=== PATIENT | female | born 1950 | race Caucasian/White ===

== ENCOUNTER 2022-08-23 08:28 | Emergency (ER) | payer MEDICARE, BC, SELFPAY ==
--- NOTE | ~2022-08-23 | CT_ITS ---
EXAMINATION: CT brain wo con DATE: 08/23/2022 09:22 INDICATION: Head injury. TECHNIQUE: Computed tomography (CT) of the head was performed without intravenous contrast. The dose- length product was 681.00 mGy-cm. Automated exposure control and iterative reconstruction technique w ere employed. COMPARISON: None FINDINGS: There is a chronic right frontal lobe infarction. There is a large chronic left hemispheric infarction with encephalomalacia. There is a little chronic left temporal lobe infarction. There is a left frontal parietal craniotomy defect. No acute infarction, hemorrhage, mass or mass effect. Ther e is compensatory dilation of the left lateral ventricle. Paranasal sinuses and mastoids are pneumati zed. IMPRESSION: 1. No acute intracranial abnormality. 2: Chronic bilateral infarctions described above. Reviewed, dictated and finalized at location []
--- NOTE | ~2022-08-23 | XR_ITS ---
XR femur LT min 2V 08/23/2022 09:40 Indication: Left leg pain after fall Procedure: 2 views left femur Comparison: No prior studies for comparison. Findings: No fracture, subluxation or dislocation. Mild osteoarthritis of the left hip and knee. Oste openia. There are vascular calcifications. No focal soft tissue abnormality. No foreign bodies. Impression: 1: No acute fracture. Reviewed, dictated and finalized at location [] Impression: 1: No acute fracture.
--- NOTE | ~2022-08-23 | XR_ITS ---
XR hip LT 2V w AP pelvis 08/23/2022 09:40 Indication: Left hip pain after fall Procedure: AP pelvis and 2 views left hip Comparison: 08/23/2022 Findings: There is mild osteoarthritis of the hips. No fracture, subluxation or dislocation. No signi ficant soft tissue abnormality. No foreign bodies. Impression: 1: Mild bilateral symmetric osteoarthritis of the hips. Reviewed, dictated and finalized at location [] Impression: 1: Mild bilateral symmetric osteoarthritis of the hips.
[2022-08-23 08:32] VITALS: BP 118/63; PULSE 77; RESP 16; TEMP 36.2; O2SAT 98
[2022-08-23] MEDS: MORPHINE SULFATE (*CRX) 4 MG/ML INJ IV PUSH (09:02)
--- NOTE | 2022-08-23 10:25 | ED.GENADULT ---
HPI - General Adult General Chief complaint: Fall Stated complaint: poss hip fx Time Seen by Provider: 08/23/22 08:40 History of Present Illness HPI narrative: Patient is a 72-year-old female who presents to the ER after rolling out of bed. Daughter heard the patient hit the ground. Went up and checked on patient immediately. No loss of consciousness. 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 Patient has pain to the left lateral thigh and hip area. She also has some left-sided temporal pain. Denies LOC. Has not attempted ambulation. No additional concerns. Has not received any pain medication. Patient is on aspirin. Related Data Allergies Allergy/AdvReac Type Severity Reaction Status Date / Time codeine Allergy Unknown Verified 08/23/22 08:39 Penicillins Allergy Unknown Verified 08/23/22 08:39 Sulfa (Sulfonamide Allergy Unknown Verified 08/23/22 08:39 Antibiotics) Review of Systems Review of Systems: ROS unobtainable: Yes unobtainable due to medical condition (Expressive aphasia) Musculoskeletal: Musculoskeletal: Denies joint swelling PMFSH Past Medical History Medical History (Updated 08/23/22 @ 12:18 by Denzel Flores MD) CVA (cerebral vascular accident) Expressive aphasia Exam Narrative: GENERAL: Well-appearing, well-nourished, and in no acute distress. HEAD: Normocephalic, atraumatic. ENT: Mucous membranes moist. CHEST: Clear to auscultation. No respiratory distress. HEART: Regular rate and rhythm. Normal peripheral pulses. ABDOMEN: Soft, nontender, nondistended. EXTREMITIES: Tender palpation left proximal thigh and hip. Able to have her leg passively moved without pain on the left side. Right upper and lower extremity contracture. SKIN: Warm, dry, no rash. NEURO: Awake and alert, answers yes and no and has an expressive aphasia otherwise. At neurologic baseline currently. PSYCH: Normal mood and affect. Course Course Emergency Course: Patient able to move about the room with her cane in a normal manner. She will be discharged home. Vital Signs Vital signs: Vital Signs Temperature 97.1 F L 08/23/22 08:32 Pulse Rate 77 08/23/22 08:32 Respiratory Rate 16 08/23/22 08:32 Blood Pressure 118/63 08/23/22 08:32 Pulse Oximetry 98 08/23/22 08:32 Oxygen Delivery Room Air 08/23/22 08:32 Temperature 97.1 F L 08/23/22 08:32 Pulse Rate 77 08/23/22 08:32 Respiratory Rate 16 08/23/22 08:32 Blood Pressure 118/63 08/23/22 08:32 Pulse Oximetry 98 08/23/22 08:32 Oxygen Delivery Room Air 08/23/22 08:32 Medical Decision Making Vital Signs Vital Signs: Vital Signs Temperature 97.1 F L 08/23/22 08:32 Pulse Rate 77 08/23/22 08:32 Respiratory Rate 16 08/23/22 08:32 Blood Pressure 118/63 08/23/22 08:32 Pulse Oximetry 98 08/23/22 08:32 Oxygen Delivery Room Air 08/23/22 08:32 Temperature 97.1 F L 08/23/22 08:32 Pulse Rate 77 08/23/22 08:32 Respiratory Rate 16 08/23/22 08:32 Blood Pressure 118/63 08/23/22 08:32 Pulse Oximetry 98 08/23/22 08:32 Oxygen Delivery Room Air 08/23/22 08:32 Imaging Data Radiologist's impression: ITS Impressions Head CT 08/23/22 09:27 IMPRESSION: 1. No acute intracranial abnormality. 2: Chronic bilateral infarctions described above. Hip/Pelvis X-Ray 08/23/22 09:47 Impression: 1: Mild bilateral symmetric osteoarthritis of the hips. Femur X-Ray 08/23/22 09:49 Impression: 1: No acute fracture. Discharge Plan Discharge Clinical Impression: Contusion of left thigh Patient Disposition: Home, Self-Care Condition: Stable Instructions: Contusion in Adults (ED) Additional Instructions: You are felt to have a left thigh contusion due to your fall. You may notice some discoloration of the next couple of days. Return to the ER if you have additional injury, you have chest pain or shortness of breath, you have
[2022-08-23] MEDS: HYDROcodone/acetaminophen (*CRX) 5-325 MG TABLET 1 TAB PO (12:26)
[2022-08-23 12:27] VITALS: BP 117/76; PULSE 96; RESP 18; TEMP 35.9; O2SAT 92
== END 2022-08-23 12:30 | disposition home or self-care (01) ==
PROVIDERS: Emergency Provider Emergency Medicine; PCP Family Medicine
DX: S70.12XA Contusion of left thigh, initial encounter (principal); I69.351 Hemiplegia and hemiparesis following cerebral infarction affecting right dominant side; I69.320 Aphasia following cerebral infarction; M16.0 Bilateral primary osteoarthritis of hip; W06.XXXA Fall from bed, initial encounter
CPT/HCPCS: 70450; 73502; 73552; 96374; 99284; A9270; J2270

== ENCOUNTER 2024-09-28 15:02 | Emergency (ER) | payer MEDICARE, BC, SELFPAY ==
--- NOTE | 2024-09-28 | ECG_ITS ---
Test Date: 2024-09-28 15:21:28 Measurements Intervals [place] Rate: 83 P: 31 LA: 202 QRS: 4 QRSD: 107 T: 32 QT: 365 QTc: 430 Interpretive Statements SINUS RHYTHM LOW QRS VOLTAGE IN PRECORDIAL LEADS [QRS DEFLECTION < 1.0 mV IN CHEST LEADS] No previous ECG available for comparison Electronically Signed On 09-29-2024 12:35:07 CDT by Gonzalez Caruso M.D.
--- NOTE | ~2024-09-28 | CT_ITS ---
EXAMINATION: CT brain wo con DATE: 09/28/2024 17:24 INDICATION: AMS . TECHNIQUE: Computed tomography (CT) of the head was performed without intravenous contrast. The mA wa s adjusted according to patient size. Iterative reconstruction technique was employed. The dose-lengt h product was 681.00 mGy-cm. COMPARISON: None. FINDINGS: No acute intracranial hemorrhage or extra-axial fluid collection. No hydrocephalus, mass, or herniation. Ex vacuo dilation of the left lateral ventricle. No acute ischemic infarct. Unremarkable dural venous sinus attenuation. No acute osseous abnormality. Right craniotomy defect. Trace right mastoid fluid, the remaining aerated spaces are clear. Large area of encephalomalacia in the left cerebral 1hemisphere. More focal encephalomalacia in the r ight frontal lobe. Mild atrophy. Old bilateral basal ganglia lacunar infarcts. Atherosclerotic intrac ranial calcifications. IMPRESSION: No acute intracranial process. Reviewed, dictated and finalized at location K.
--- NOTE | ~2024-09-28 | XR_ITS ---
EXAMINATION: XR chest 2V Exam Date/Time: 09/28/2024 17:20 CDT HISTORY: cough, AMS Comparison: None. RESULT: Lines, tubes, and devices: Cholecystectomy clips. Lungs and pleura: Clear. Granulomatous calcification. Cardiomediastinal silhouette: Unremarkable. Calcified nodes. Other: No acute upper abdominal finding. Moderate anterior wedge deformity in the lower spine, proba gennaro T12 IMPRESSION: No acute cardiopulmonary process. Moderate anterior wedge deformity, likely at T12, presumably chronic unless accompanied by acute pain /tenderness. Reviewed, dictated and finalized at location K. IMPRESSION: No acute cardiopulmonary process. Moderate anterior wedge deformity, likely at T12, presumably chronic unless acc ompanied by acute pain/tenderness.
[2024-09-28 15:08] VITALS: BP 129/64; PULSE 84; RESP 16; TEMP 37.2; O2SAT 94
[2024-09-28 15:32] LABS: Hematocrit 45.4 % (37.0-47.0); Hemoglobin 14.6 g/dL (12.0-15.0); Immature Granulocyte Percent A 0.4 % (0-0.5); Lymphocytes Absolute Auto 2.06 K/mm3 (0.9-3.2); Mean Corpuscular HGB Conc 32.2 g/dl (32-36); Mean Corpuscular Hemoglobin 29.6 pg (26-34); Mean Corpuscular Volume 91.9 fl (80-100); Nucleated Red Blood Cells Absolute Auto 0.000 K/mm3 (0.0-0.012); Nucleated Red Blood Cells Perc 0.0 % (0.0-0.2); Platelet Count Result 275 k/mm3 (150-375); Red Blood Count 4.94 M/mm3 (4.2-5.4); White Blood Count 10.6 K/mm3 (4.5-10.0)
[2024-09-28 15:42] LABS: INR 1.0; Prothrombin Time 12.7 Seconds (11.1-14.7)
[2024-09-28 15:43] LABS: Partial Thromboplastin Time 28.7 Seconds (22.3-36.8)
--- NOTE | 2024-09-28 15:44 | ED.AMS ---
HPI - Altered Mental Status General Chief Complaint: Altered Mental Status Stated Complaint: AMS Time Seen by Provider: 09/28/24 15:39 Source: patient and family Mode of arrival: EMS Limitations: other (history of previous CVA with expressive aphasia) History of Present Illness HPI narrative: This is a 74 year old female that presents to the ER for altered mental status. Daughter reports she has not been herself since yesterday. Reports some agitation. Reports a cough that is chronic. Otherwise no associates symptoms. Related Data Allergies Allergy/AdvReac Type Severity Reaction Status Date / Time codeine Allergy Unknown Verified 08/23/22 08:39 Penicillins Allergy Unknown Verified 08/23/22 08:39 Sulfa (Sulfonamide Allergy Unknown Verified 08/23/22 08:39 Antibiotics) Review of Systems Review of Systems: ROS unobtainable: Yes unobtainable due to medical condition PMFSH Past Medical History Medical History (Updated 09/28/24 @ 18:37 by Josefa Reece PA-C) History of hypothyroidism History of hypertension History of hyperlipidemia CVA (cerebral vascular accident) Expressive aphasia Exam Narrative: GENERAL: Elderly, well-nourished, and in no acute distress. HEAD: Normocephalic, atraumatic. EYES: PERRLA and EOMI. ENT: Nares clear, no rhinorrhea or epistaxis. Mucous membranes moist. Oropharynx without tonsillar hypertrophy exudate or other lesions. Bilateral TMs pearly porras non-bulging NECK: Supple. No adenopathy or masses CHEST: Clear to auscultation. No respiratory distress. No wheezes rales or rhonchi HEART: Regular rate and rhythm. No murmur heard. Normal peripheral pulses. ABDOMEN: Soft, nontender, nondistended, normal active bowel sounds. EXTREMITIES: Right sided hemiplegia. No edema. SKIN: Warm, dry, no rash. NEURO: No focal deficits. Alert and oriented x1. PSYCH: Normal mood and affect Course Course Emergency Course: patient and family updated on workup and agree with plan of care. we spoke about further inpatient treatment versus discharge home with oral antibiotics. patient and family wish to trial outpatient treatment Vital Signs Vital signs: Vital Signs Temperature 98.9 F 09/28/24 15:08 Pulse Rate 84 09/28/24 15:08 Respiratory Rate 16 09/28/24 15:08 Blood Pressure 129/64 09/28/24 15:08 Pulse Oximetry 94 09/28/24 15:08 Oxygen Delivery Room Air 09/28/24 15:08 Temperature 98.9 F 09/28/24 15:08 Pulse Rate 84 09/28/24 15:08 Respiratory Rate 16 09/28/24 15:08 Blood Pressure 129/64 09/28/24 15:08 Pulse Oximetry 94 09/28/24 15:08 Oxygen Delivery Room Air 09/28/24 15:08 MDM - Altered Mental Status MDM Narrative Medical decision making narrative: Patient presents the emergency department for agitation ongoing since yesterday. She is afebrile and nontoxic appearing. Neurologically intact at her baseline. Her vitals are stable. CBC with mild leukocytosis to 10.6. Metabolic panel without concerning findings. Urine with evidence of infection. This was sent for culture. CT brain without acute findings. Chest x-ray without acute cardiopulmonary abnormality. patient and family updated on workup and agree with plan of care. we spoke about further inpatient treatment versus discharge home with oral antibiotics. patient and family wish to trial outpatient treatment. They report warnings to return to the ER Differential Diagnosis Differential diagnosis: Likely altered mental status, delirium, dementia, sepsis and other (uti, pneumonia) Lab Data Attestation: I reviewed the patient's lab results. 09/28/24 15:26 09/28/24 15:26 Labs: Lab Results 09/28/24 09/28/24 Range/Units 15:26 16:10 WBC 10.6 H (4.5-10.0) K/mm3 RBC 4.94 (4.2-5.4) M/mm3 Hgb 14.6 (12.0-15.0) g/dL Hct 45.4 (37.0-47.0) % MCV 91.9 (80-100) fl MCH 29.6 (26-34) pg MCHC 32.2 (32-36) g/dl RDW 14.9 H (11.5-14.5) % Plt Count 275 (150-375) k/mm3 MPV 10.4 (7.4-10.4) fl Immature Gran % (Auto) 0.4 (0-0.5) % Neut % (Auto) 68.3 (45.5-73.1) % Lymph % (Auto) 19.5 (18.3-44.2) % Centre % (Auto) 6.6 (2.6-8.5) % Eos % (Auto) 4.3 (0-4.4) % Baso % (Auto) 0.9 (0.2-1.2) % Lymph # (Auto) 2.06 (0.9-3.2) K/mm3 Centre # (Auto) 0.7 H (0.1-0.6) K/mm3 Eos # (Auto) 0.5 H (0-0.3) K/mm3 Baso # (Auto) 0.1 (0.0-0.1) K/mm3 Abs Immat Gran (auto) 0.04 H (0.00-0.031) K/mm3 Absolute Neuts (auto) 7.2 H (1.3-6.7) K/mm3 Absolute Nucleated RBC 0.000 (0.0-0.012) K/mm3 Nucleated RBC % 0.0 (0.0-0.2) % PT 12.7 (11.1-14.7) Seconds INR 1.0 APTT 28.7 (22.3-36.8) Seconds Sodium 136 L (137-145) mmol/L Potassium 4.0 (3.4-5.0) mmol/L Chloride 101 (98-107) mmol/L Carbon Dioxide 27 (22-30) mmol/L Anion Gap 8 (4-12) mmol/L BUN 26 H (7-17) mg/dL Creatinine 1.02 H (0.7-1.0) mg/dL Estim Creat Clear Calc 50 ml/min Estimated GFR 53 L (59 - ) Glucose 131 H (65-110) mg/dL Calcium 9.1 (8.4-10.2) mg/dL Total Bilirubin 0.5 (0.2-1.3) mg/dL AST 38 H (14-36) U/L ALT 30 (6-35) U/L Alkaline Phosphatase 97 (38-126) U/L Total Protein 7.9 (6.3-8.2) g/dL Albumin 3.9 (3.5-5.1) g/dL Urine Color Yellow (Yellow) Urine Appearance Clear (Clear) Urine pH 7.5 (5.0-9.0) Ur Specific [place] 1.016 (1.001-1.035) Urine Protein Negative (Negative) mg/dL Urine Glucose (UA) Negative (Negative) mg/dL Urine Ketones Negative (Negative) mg/dL Ur Blood (Man) Negative (Negative) Urine Nitrate Positive H (Negative) Urine Bilirubin Negative (Negative) Urine Urobilinogen 0.2 (<2.0) mg/dL Leukocyte Esterase Rfl 3+ H (Negative) JUAN ANTONIO/UL Urine RBC 0-2 (0-2) /hpf Urine WBC 51-100 H (0-3) /hpf Ur Squamous Epith Cells None seen (Few) /hpf Urine Bacteria 4+ H /hpf Urine Casts 0-2 Imaging Data Radiologist's impression: ITS Impressions Head CT 09/28/24 17:53 IMPRESSION: No acute intracranial process. Chest X-Ray 09/28/24 18:03 IMPRESSION: No acute cardiopulmonary process. Moderate anterior wedge deformity, likely at T12, presumably chronic unless accompanied by acute pain/tenderness. Critical Care Time Critical Care Time Critical Care Time: No Discharge Plan Discharge Clinical Impression: Acute UTI Patient Disposition: Home Condition: Stable Instructions: Antibiotic Form, Urinary Tract Infection in Older Adults (ED) Additional Instructions: Return to the ER if you experience fever, abdominal pain with nausea and vomiting, you are unable to keep down liquids or solids, or any other symptoms that are concerning to you Remain well hydrated. Take oral antibiotics as prescribed Follow up with primary care doctor Patient Language: [place] Prescriptions: New cefdinir 300 mg capsule 300 mg PO Q12H 5 Days Qty: 10 0RF No Action hydrocodone-acetaminophen 5-325 mg tablet 1 tablet PO Q6H PRN (Reason: pain) Qty: 10 0RF Follow-up/Referrals: Harms,Myron Sharma M.D. [Primary Care Provider] -
[2024-09-28 15:52] LABS: Alanine Aminotransferase 30 U/L (6-35); Albumin Level 3.9 g/dL (3.5-5.1); Alkaline Phosphatase 97 U/L (38-126); Anion Gap 8 mmol/L (4-12); Aspartate Amino Transferase 38 U/L (14-36); Bilirubin,Total 0.5 mg/dL (0.2-1.3); Blood Urea Nitrogen 26 mg/dL (7-17); Calcium 9.1 mg/dL (8.4-10.2); Carbon Dioxide 27 mmol/L (22-30); Chloride 101 mmol/L (98-107); Estimated CRCL calculation 50 ml/min; Estimated Glomerular Filt Rate 53; Glucose 131 mg/dL (65-110); Potassium 4.0 mmol/L (3.4-5.0); Sodium 136 mmol/L (137-145); Total Protein 7.9 g/dL (6.3-8.2)
--- OUTSIDE RECORDS SUMMARY | 2024-09-28 15:55 | XMS_ITS | Referral Summary ---
Author Organization [facility] Address [address] [place] [address] Care Team Providers Care Youth Officer Name Role Phone Myron Gardner MD Primary Care Provider [phone] Myron Gardner MD Unavailable [phone] Anna Burns PT Unavailable Unavailable Mario Llanos MD Unavailable [phone] Caren Ann MA Unavailable Unavailable Mariusz Mcfarland MD Unavailable [phone] Encounters Date Type Department Care Team Description 08/04/2024 Telephone [facility] [address] [address] Felicia Montalvo NP Medical Question/Miscellaneous 07/31/2024 8:00 AM CDT [facility]med[facility] [address] [address] Felicia Montalvo NP 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 (Primary Dx); Pressure ulcer of toe of left foot, stage 1; Hemiplegia of right dominant side as late effect of cerebral infarction, unspecified hemiplegia type (HCC); Class 2 severe obesity due to excess calories with serious comorbidity and body mass index (BMI) of 38.0 to 38.9 in adult (HCC) from Last 3 Months Allergies Active Allergy Reactions Criticality Noted Date Comments Codeine Nitrofurantoin Fever Medium 09/27/2021 Penicillin G Anaphylaxis High Penicillins Penicillins Unknown 01/28/2020 Sulfa (Sulfonamide Antibiotics) Sulfa (Sulfonamide Antibiotics) Unknown 01/04 Medications multivitamin capsule Take 1 capsule by mouth daily Active ascorbic acid (vitamin C) 1,000 mg tablet Take 1 tablet (1,000 mg total) by mouth 2 (two) times a day Active diphenhydrAMIN E (BENADRYL) 25 mg capsule Take 2 tablet/capsule (50 mg total) by mouth nightly Active aspirin 81 mg enteric coated tablet Take 1 tablet (81 mg total) by mouth daily 30 tablet 11 08/01/19 23 Active pregabalin (LYRICA) 25 mg capsuleIndicat ions:Hemiplegi a of right dominant side as late effect of cerebral infarction, unspecified hemiplegia type (HCC) TAKE 1 CAPSULE BY MOUTH IN THE MORNING AND TAKE 2 CAPSULES BY MOUTH EVERY EVENING. 90 capsule 11/02/19 24 Active atorvastatin (LIPITOR) 40 mg tabletIndicati ons:Hemiplegia of right dominant side as late effect of cerebral infarction, unspecified hemiplegia type (HCC) TAKE 1 TABLET DAILY 90 tablet 3 02/13/20 24 Active albuterol HFA (PROVENTIL HFA,VENTOLIN HFA,PROAIR HFA) 90 mcg/actuation inhaler INHALE 2 PUFFS EVERY 6 HOURS NEEDED FOR WHEEZING 25.5 each 4 03/18/19 25 Active tiZANidine (ZANAFLEX) 2 mg tablet TAKE TWO TABLETS BY MOUTH NIGHTLY 180 tablet 1 04/14/19 25 Active acetaminophen (Tylenol Extra Strength) 500 mg tabletIndicati ons:Pain Take 1 tablet (500 mg total) by mouth every 6 (six) hours as needed for pain 30 tablet 04/24/19 25 Active bacitracin 500 unit/gram ointmentIndica tions:Pressure ulcer of toe of left foot, stage 1 Apply topically 2 (two) times a day 113 g 04/24/19 25 Active levETIRAcetam (KEPPRA) 500 mg tablet Take 1 tablet (500 mg total) by mouth 2 (two) times a day 60 tablet 11 05/22/[address] (CYMBALTA) 20 mg capsule TAKE 1 CAPSULE BY MOUTH TWICE A DAY 180 capsule 1 06/20/19 25 Active triamterene-hy droCHLOROthiaz beba 37.5-25 mg per tablet TAKE 1 TABLET BY MOUTH EVERY DAY 90 tablet 2 06/28/19 25 Active albuterol 2.5 mg /3 mL (0.083 %) nebulizer solution TAKE 3 ML BY NEBULIZATION 4 TIMES A DAY NEEDED FOR WHEEZE OR SHORTNESS OF BREATH DX: R06.02 1050 mL 1 07/16/19 25 Active metoprolol tartrate (LOPRESSOR) 25 mg immediate release tablet TAKE 1 TABLET BY MOUTH TWICE A DAY 200 tablet 1 09/01/19 25 Active ezetimibe (ZETIA) 10 mg tablet TAKE 1 TABLET DAILY 90 tablet 1 09/02/19 25 Active Synthroid 200 mcg tablet TAKE 1 TABLET DAILY (INCREASED DOSE) 90 tablet 1 09/02/19 25 Active pregabalin (LYRICA) 25 mg capsuleIndicat ions:Hemiplegi a of right dominant side as late effect of cerebral infarction, unspecified hemiplegia type (HCC) TAKE 1 CAPSULE BY MOUTH IN THE MORNING AND TAKE 2 CAPSULES BY MOUTH EVERY EVENING. 90 capsule 09/11/19 25 Active metoprolol tartrate (LOPRESSOR) 25 mg immediate release tablet TAKE 1 TABLET BY MOUTH TWICE A DAY 180 tablet 1 02/29/20 24 2024 Discontinued Synthroid 200 mcg tablet TAKE 1 TABLET DAILY (INCREASED DOSE) 90 tablet 1 04/10/19 25 2024 Discontinued ezetimibe (ZETIA) 10 mg tablet TAKE 1 TABLET DAILY 100 tablet 06/22/19 25 2024 Discontinued pregabalin (LYRICA) 25 mg capsuleIndicat ions:Hemiplegi a of right dominant side as late effect of cerebral infarction, unspecified hemiplegia type (HCC) TAKE 1 CAPSULE BY MOUTH IN THE MORNING AND TAKE 2 CAPSULES BY MOUTH EVERY EVENING. 90 capsule 08/12/19 25 2024 Discontinued(R eorder) Active Problems Problem Noted Date Diagnosed Date Pressure ulcer of toe of left foot, stage 1 04/06 Assessment & Plan (07/31/2024 8:36 AM CDT): Healed. Continue monitoring for any new wounds. Continue position changes. Assessment & Plan (04/24/2024 2:43 PM NO BAKE MOLDER): Bacitracin ordered. Advised to put gauze between toes to aid in keeping pressure off the toe. Referral placed to Podiatry. Will continue to monitor. Annual physical exam 01/17/2024 Assessment & Plan (01/17/2024 9:53 AM NO BAKE MOLDER): Focus of exam is preventative in nature. Reivweed immunizaitons, reivewed sun/skin cnacer screenign. Reiweed colon/breast cacner screening. WIll continue to ofllwo and montior response. Encounter for screening mamm ogram for malignant neoplasm of breast 01/17/2024 Bronchitis 01/17/2024 Postmenopausal 10/18/2023 Assessment & Plan (10/18/2023 3:15 PM CDT): Bone density scan ordered. Will plan accordingly once results are received. High serum vitamin D 10/18/2023 Assessment & Plan (10/18/2023 3:17 PM CDT): Back to normal range. Will continue to hold vitamin-D supplements for now. Will recheck vitamin-D level upon return. Positive colorectal cancer screening using Colog uard test 08/07/2023 Encounter for screening colonoscopy 08/07/2023 Hypertension, essential 07/18/2023 Assessment & Plan (10/18/2023 3:06 PM CDT): Normotensive. Continue metoprolol, triamterene/hydrochlorothiazide. Will continue to monitor. Assessment & Plan (07/18/2023 1:48 PM CDT): Normotensive. Continue metoprolol, triamterene hydrochlorothiazide. Will continue to monitor. Hypercalcemia 07/18/2023 Assessment & Plan (07/18/2023 1:49 PM CDT): Hold calcium supplement for now. Will check ionized calcium. Will monitor response. Can consider holding hydrochlorothiazide p.r.n.. Colon cancer screening 07/18/2023 Assessment & Plan (07/18/2023 1:49 PM CDT): Cologuard ordered. Will message with results once received. Mammogram declined 07/18/2023 Assessment & Plan (07/18/2023 1:50 PM CDT): Mammogram declined. She is aware of the risks. Hematoma of left thigh 11/23/2022 Assessment & Plan (01/17/2023 2:28 PM NO BAKE MOLDER): Gradually improving; caregiver states surgeon did not want to surgically correct due to risks Assessment & Plan (11/23/2022 4:40 PM CDT): No improvement with conservative treatment measures at home. Patient continues to have pain, recommended further evaluation with General surgery to discuss options. Instructed patient to take NSAIDs scheduled for the next 1 week, encouraged her to take medication with food. Recurrent major depression 06/26/2022 Assessment & Plan (01/17/2024 9:52 AM NO BAKE MOLDER): COntinues on duloxetine and will montior resopnse. NO change. COVID-19 03/02/2022 Assessment & Plan (03/02/2022 12:35 PM NO BAKE MOLDER): Discussed concerns for pneumonia and need for additional testing; chest xray labs and fluids. Patient with probably pneumonia and dehydration. Instructed to go to ER. Patient and meuxucc-dx-hso/care-women's swim coach are agreeable to go to ER from office. Notified [facility] ER, report called to [facility]. Lung nodule < 6cm on CT 10/19/2020 Pneumonia 08/22/2020 Assessment & Plan (08/22/2020 9:59 PM CDT): Suspected versus bronchitis. Patient feeling better at this time. She is no longer wheezing. Will check a urine Legionella. Continue empiric antibiotics. Will start IV fluids and order Mucinex. 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 LFTs are elevated worsening usual. Hold hepatotoxins including anti hyperlipidemic and Tylenol. Will continue to monitor. Screening for colon cancer 06/20/2020 Assessment & Plan (06/20/2020 11:38 AM CDT): Schedule Cologuard test. Elevated alpha fetoprotein 06/20/2020 Assessment & Plan (03/26/2021 11:52 AM NO BAKE MOLDER): Schedule [address] liver. Repeat level today. Assessment & Plan (09/14/2020 12:47 PM CDT): Mild elevation at 10. Most recent imaging ultrasound of the liver in June 2020 showed hepatic steatosis with no focal lesion. Will plan repeat testing in 6 months. Assessment & Plan (06/20/2020 11:44 AM CDT): Will follow level every three months. No liver mass lesions noted. 2019 novel coronavirus disease (COVID-19) 2019 CVA, old, aphasia 01/28/2020 Assessment & Plan (04/24/2024 2:41 PM NO BAKE MOLDER): Motorized wheelchair order placed Assessment & Plan (08/22/2020 10:00 PM CDT): Patient has expressive aphasia and residual right-sided weakness. She cannot move her right arm at all however can move her right leg a little. Severe obesity (BMI 35.0-39.9) with comorbidity 05/14/2019 Assessment & Plan (04/24/2024 2:43 PM NO BAKE MOLDER): Encouraged heart healthy diet and lifestyle. Advised 150 min/week of aerobic exercise. Hemiplegia affecting right dominant side 020 Assessment & Plan (07/31/2024 8:35 AM CDT): Motorized wheelchair ordered. Assessment & Plan (04/24/2024 2:41 PM NO BAKE MOLDER): Motorized wheelchair order placed Assessment & Plan (01/17/2024 9:51 AM NO BAKE MOLDER): Continues to be wheelchair bound with right hemiplegia. No skin lesions. No challenges with transfers. Assessment & Plan (01/17/2023 2:29 PM NO BAKE MOLDER): S/P CVA Transient alteration of awareness 12/02/2018 H/O: depression 10/15/2017 Assessment & Plan (01/17/2023 2:26 PM NO BAKE MOLDER): Stable, currently well controlled Continue cymbalta 20 mg bid H/O: hypertension 10/15/2017 Assessment & Plan (01/17/2023 2:28 PM NO BAKE MOLDER): BP well controlled; at goal 108/72 at visit Continue metoprolol 25 mg and triamterene-HCTZ 37.5-25 mg History of hypercholesterolemia 10/15/2017 Obesity (BMI 30-39.9) 08/08/2017 Assessment & Plan (08/08/2017 3:44 PM CDT): Obesity is improving Discussed the patient's BMI. The BMI is above average; BMI management plan is completed. Diet interventions: low calorie (1000 kCal/d) deficit diet. Diet= low-carb Limit white bread, rice, pasta, potatoes, juice, energy drinks, coffee creamers with sugar, sugar sodas, candy, cake, cookies, ice cream. Be more careful with starchy vegetables like corn, carrots, and fruits. Stay away from processed foods, fast foods, fried foods. The cornerstone of this diet is lean grilled meats, green salads or cooked greens, fat-free milk, cottage cheese, nuts like cnderwn-vztqzaf-lzltjba, protein bars with 10-15 g of protein and 20-30 g of carbohydrate. Choose whole grain breads and pastas, brown rice, sweet potatoes, read onions--these whole grains absorb more slowly thus blood sugar does not surge so high so quickly. Avoid drinking juice, eat a piece of fruit instead. Pt has lost 40 pounds with diet-Keep up the good work Foot pain 08/10/2015 Assessment & Plan (04/24/2024 2:41 PM NO BAKE MOLDER): Tylenol extra strength ordered. Advised BID warm water and Epson salt soaks advised to aid in relief of pain and inflammation. Hyperlipidemia 07/19/2013 Overview (06/09/2016): HYPERLIPIDEMIA NEC/NOS Assessment & Plan (01/17/2024 9:50 AM NO BAKE MOLDER): Stable on dual therapy with atorvastatin and zetia. No sig myalgias related to medication. Assessment & Plan (10/18/2023 3:07 PM CDT): Continue atorvastatin. Will check lipid panel with next set of labs. Assessment & Plan (07/18/2023 1:47 PM CDT): Lipid panel reviewed. Will continue with atorvastatin. Tolerating without side effects. Will continue to monitor. Assessment & Plan (01/17/2023 2:29 PM NO BAKE MOLDER): Currently stable; lipids at goal Continue atorvastatin 40 mg daily Assessment & Plan (08/22/2020 9:57 PM CDT): Patient is on Lipitor and zetia which will be held as patient has elevated LFTs worse than baseline. Assessment & Plan (12/02/2018 10:39 PM CDT): On zetia, currently NPO, holding the oral medications Assessment & Plan (08/08/2017 3:47 PM CDT): Lipid abnormalities are unchanged. Pharmacotherapy as ordered. Lipids will be reassessed in 1 year. Continue Pravastatin, Zetia Hypertension 07/19/2013 Overview (06/09/2016): HYPERTENSION NOS Assessment & Plan (01/17/2024 9:51 AM NO BAKE MOLDER): Stable on triamterene/hctz and will continue to oflwo response. Assessment & Plan (08/22/2020 9:56 PM CDT): Patient's blood pressure is low normal. Will continue metoprolol with hold parameters. Holding hydrochlorothiazide as we give IV fluids. Assessment & Plan (12/02/2018 10:41 PM CDT): Slightly elevated Holding oral hypoglycemics Will start on IV 5 Mg BID , adjust the Dose as needed while NPO Will resume home medications pernding swallow study and recommendations Assessment & Plan (08/08/2017 3:46 PM CDT): Hypertension is improving with treatment. Continue current treatment regimen. Continue Losartan, HCTZ Blood pressure will be reassessed at the next regular appointment.Lifestyle changes can help you control and prevent high blood pressure, even if you're taking blood pressure medication. Here's what you can do: Eat healthy foods. Eat a healthy diet. Try the Dietary Approaches to Stop Hypertension (DASH) diet, which emphasizes fruits, vegetables, whole grains, poultry, fish and low-fat dairy foods. Get plenty of potassium, which can help prevent and control high blood pressure. Eat less saturated fat and trans fat. Decrease the salt in your diet. A lower sodium level -- 1,500 milligrams (mg) a day -- is appropriate for people 51 years of age or older, and individuals of any age who are black or who have hypertension, diabetes or chronic kidney disease. Maintain a healthy weight. Keeping a healthy weight, or losing weight if you're overweight or obese, can help you control your high blood pressure and lower your risk of related health problems. If you're overweight, losing even 5 pounds (2.3 kilograms) can lower your blood pressure. Increase physical activity. Regular physical activity can help lower your blood pressure, manage stress, reduce your risk of several health problems and keep your weight under control. Limit alcohol. Even if you're healthy, alcohol can raise your blood pressure. If you choose to drink alcohol, do so in moderation. For healthy adults, that means up to one drink a day for women of all ages and men older than age 65, and up to two drinks a day for men age 65 and younger. One drink equals 12 ounces of beer, 5 ounces of wine or 1.5 ounces of 80-proof liquor. Don't smoke. Tobacco injures blood vessel crowell and speeds up the process of hardening of the arteries. If you smoke, ask your doctor to help you quit. Manage stress. Reduce stress as much as possible. Practice healthy coping techniques, such as muscle relaxation, deep breathing or meditation. Getting regular physical activity and plenty of sleep can help, too. Notify the office for blood pressure greater than 130/80 Aphasia due to late effects of cerebrovascular d isease 06/11/2012 Assessment & Plan (07/31/2024 8:34 AM CDT): Stable. Declines PT OT. She will let us know if she changes her mind. Assessment & Plan (04/24/2024 2:41 PM NO BAKE MOLDER): Order for new motorized wheelchair placed along with OT evaluation. Assessment & Plan (01/17/2024 9:50 AM NO BAKE MOLDER): No swallowing difficutlies and will montiro resopnse. No aspiration Assessment & Plan (01/17/2023 2:25 PM NO BAKE MOLDER): Aphasia s/p CVA Patient was able to talk clearly at vist; seems to be improving Assessment & Plan (12/02/2018 10:56 PM CDT): Differential diagnosis: TIA versus seizure like activity Will start on Ativan 1 mg p.r.n. For recurrent seizures. Give loading dose of Keppra 1000 mg IV once now. Will continue with 500 mg IV b.i.d. While NPO. Neurology consulted. Patient is transferred currently to the ICU floor with salvage inspector wood parts consult. Will continue monitoring closely. Seizure precautions, fall precautions, Will obtain neurology consult. EEG in a.m. Stenosis of carotid artery 04/29/2012 Assessment & Plan (12/02/2018 10:43 PM CDT): Will defer to neurology further workup Hypothyroidism 03/23/2010 Overview (06/09/2016): HYPOTHYROIDISM NOS Assessment & Plan (01/17/2024 9:51 AM NO BAKE MOLDER): Clinically euthryoid. [id number] to follow TFTs. Assessment & Plan (07/18/2023 1:47 PM CDT): Will check TSH and plan accordingly. Continue with current dose of levothyroxine. Assessment & Plan (08/22/2020 9:56 PM CDT): Continue levothyroxine Assessment & Plan (12/02/2018 10:42 PM CDT): Will replace with IV levothyrozine 75 MCG daily Assessment & Plan (08/08/2017 3:46 PM CDT): Continue Levothyroxine 150 mcg Seizure Assessment & Plan (01/17/2024 9:50 AM NO BAKE MOLDER): Continues on ikeppra and will follow response. No change. No recurrent seizure activity. Assessment & Plan (08/22/2020 10:01 PM CDT): Continue Keppra Cirrhosis of liver without ascites Assessment & Plan (01/17/2024 9:52 AM NO BAKE MOLDER): No change in constitutional statsu and will follow response. Assessment & Plan (03/26/2021 11:51 AM NO BAKE MOLDER): Cirrhosis secondary to fatty liver. Liver function well compensated. Follow up 6 months. Check labs before next visit. Assessment & Plan (09/14/2020 12:44 PM CDT): Secondary to nonalcoholic steatohepatitis. Liver function is stay in the normal. No decompensation signs. We will follow up in 6 months and plan repeat alpha- fetoprotein level then. Assessment & Plan (08/22/2020 10:00 PM CDT): With elevated LFTs. Holding will hepatotoxins. Patient follows with Dr. Mcfarland as an outpatient. Assessment & Plan (06/20/2020 11:37 AM CDT): Secondary to BRUCE. Stable overall. Discussed low salt diet. Check labs today. she may use low dose Tylenol every now and then. Ok to use Lipitor to control her lipids. Schedule liver ultrasound. Follow up in 3 months. Resolved Problems Problem Noted Date Diagnosed Date Resolved Date Contusion of left thigh 12/05/202201/03 Acute respiratory failure wi th hypoxia (CMS/HCC) 08/22/2020 12/22/2020 Assessment & Plan (08/22/2020 10:08 PM CDT): Secondary to pneumonia versus bronchitis. Patient is not on home oxygen. She had reported SpO2 of 60% on room air. Continue supplemental oxygen and wean as tolerated. Lower suspicion for acute PE given other areas with mucous plugging. Will consider repeat CTA if patient's symptoms do not improve with current treatment and after IV hydration to decrease risk of renal injury. Immunizations Immunization Administration Dates Next Due Influenza, Quadrivalent, Hig h Dose, Preservative Free, Intrr 11/23/2022,12/12/2021 Influenza, Quadrivalent, Spl it, Preservative Free, Intramuscular 12/09/2018 Influenza, Trivalent, Recomb inant, Egg Free, Preservative Free, Antibiotic Free, IM (FLUBLOK) 12/29/2014 Influenza, Unspecified 04/24/2024(Deferr ed: Patient Refused),11/04/2023(Deferred: Patient Refused),12/22/2020(Deferred: Patient Refused),12/03/2020(Deferred: Patient Refused),02/10/2020(Deferred: Patient Refused),12/04/2019(Deferred: Patient Refused),11/04/2019(Deferred: Patient Refused),12/03/2017(Deferred: Patient Refused),03/19/2017(Deferred: Patient Refused) Pfizer SARS-CoV-2 Monovalent Vaccination (12+ Yrs) PURPLE 05/02/2021 Pneumococcal Conjugate PCV 13 12/09/2018 Pneumococcal Conjugate Pcv20 12/12/2021 Pneumococcal Conjugate, Unspecified 02/10/2020(D eferred: Patient Refused) Pneumococcal Polysaccharide PPV23 09/08/2020(Def erred: Patient Refused) Td, adsorbed 01/19/2010 Social History Tobacco Use Types Packs/Day Years Used Date Smoking Tobacco: Never Smokeless Tobacco: Never Tobacco Cessation:Counseling Given: Not Answered Alcohol Use Standard Drinks/Week Comments No 0 (1 standard drink = 0.6 oz pur e alcohol) AUDIT-C Answer Date Recorded Q1: How often do you have a drink containing alcohol? Never 08/30/2023 Q2: How many drinks containi ng alcohol do you have on a typical day when you are drinking? Patient does not drink Q3: How often do you have si x or more drinks on one occasion? Never 08/30/2023 PHQ-2 Answer Date Recorded PHQ-2 Total Score (If total score is 3 or more points, staff should administer the PHQ-9) 0 04/24/2024 Personal Safety Answer Date Recorded Have you ever been in or are you currently in a harmful physical or emotional relationship or is someone making you feel afraid or unsafe? Denies 08/30/2023 Comments No Sex and Gender Information Value Date Recorded Sex Assigned at Not on file Legal Sex Female 9:19 AM NO BAKE MOLDER Gender Identity Not on file Sexual Orientation Not on file Last Filed Vital Signs Vital Sign Reading Time Taken Comments Blood Pressure 108/73 05/21/2024 2:20 PM CDT Pulse 92 05/21/2024 2:20 PM CDT Temperature 37 C (98.6 F) 01/16/2024 3:17 PM NO BAKE MOLDER Respiratory Rate 18 04/24/2024 1:56 PM NO BAKE MOLDER Oxygen Saturation 78% 05/21/2024 2:20 PM CDT Inhaled Oxygen Concentration - - Weight 104.3 kg (230 lb) 07/31/2024 7:57 AM CDT Height 165.1 cm (5' 5) 07/31/2024 7:57 AM CDT Body Mass Index 38.27 07/31/2024 7:57 AM CDT Plan of Treatment Not on file Procedures Procedure Name Priority Date/Time Associated Diagnosis Comments COLONOSCOPY 08/30/2023 12:53 PM CDT DEXA AXIAL SKELETON BONE DENSITY 1 OR MORE SITES Schedule Routine, Read Routine (OP Routine) 09/13/2020 1:02 PM CDT Encounter for osteoporosis screening in asymptomatic postmenopausal patient HEPATITIS C ANTIBODY Routine 06/03/2020 2:42 PM CDT from Last 3 Months or Most Recently Relevant to Health Maintenance Results * Colonoscopy (08/30/2023 12:53 PM CDT) Anatomical Region Laterality Modality Other Narrative Procedure Note Mariusz Mcfarland MD - 08/30/2023 12:53 PM CDT [facility] Patient Name: Bree Vega Procedure Date: 08/30/2023 12:53 PM Date of : 1950 Admit Type: Outpatient Age: 73 Gender: Female Attending MD: Mariusz Mcfarland M.D. Room: [facility] ENDOSCOPY ROOM 1 Note Status: Finalized Patient Profile: This is a 73 year old female. No family history of colon cancer. Noted recent positive Cologuardtest Procedure: Colonoscopy Indications: Screening for colorectal malignant neoplasm, Last colonoscopy: 2012 Referring MD: Myron Gardner M.D. Providers: Mariusz Mcfarland M.D. Impression: - One 16 mm polyp in the cecum, removed piecemeal using a cold snare. Resected and retrieved. Clips(MR conditional) were placed. Clip consumer affairs specialist: [employer]. - Two 3 to 5 mm polyps in the proximal descending colon, removed with a jumbo cold forceps. Resectedand retrieved. - Three 2 to 3 mm polyps in the sigmoid colon,removed with a jumbo cold forceps. Resected andretrieved. - Diverticulosis in the sigmoid colon and in the ascending colon. - Internal hemorrhoids. Recommendation: - Await pathology results. - Repeat colonoscopy in 3 years for surveillance. - Continue present medications. Medicines: Monitored Anesthesia Care Complications: No immediate complications. Estimated Blood Loss: Estimated blood loss: none. Procedure: Pre-Anesthesia Assessment: - Prior to the procedure, a History and Physicalwas performed, and patient medications and allergieswere reviewed. The patient's tolerance of previous anesthesia was also reviewed. The risks andbenefits of the procedure and the sedation options and risks were discussed with the patient. All questions were answered, and informed consent was obtained. Prior Anticoagulants: The patient has taken noanticoagulant or antiplatelet agents. ASA Grade Assessment: III -A patient with severe systemic disease. Afterreviewing the risks and benefits, the patient was deemed in satisfactory condition to undergo the procedure. The benefits, risks and alternatives of theprocedure and sedation were discussed and informed consentwas obtained. All questions were answered. Please referto the signed informed consent document in the medical record. The bowel preparation used was Miralax via split dose instruction. The bowel preparation usedwas bisacodyl tablets via split dose instruction. The scope was passed under direct vision. The Pediatric Colonoscope PCF-H190L [id number] was introducedthrough the anus and advanced to the the cecum, identifiedby appendiceal orifice and ileocecal valve. Thequality of the bowel preparation was good. Bowel prep was administered using a split dose. Findings: Small external hemorrhoids were found on perianal exam. The appendiceal orifice appeared normal. A 16 mm polyp was found in the cecum. The polyp was semi-sessile. The polyp was removed with a piecemeal technique using a cold snare. Resection and retrieval were complete. To prevent bleeding after the polypectomy, two hemostatic clips were successfully placed (MR conditional). Clip consumer affairs specialist: [employer]. There was no bleeding during the procedure. The transverse colon and ascending colon appeared normal. Two sessile polyps were found in the proximal descending colon. The polyps were 3 to 5 mm in size. These polyps were removed with a jumbo cold forceps. Resection and retrieval were complete. Three sessile polyps were found in the sigmoid colon. The polyps were2 to 3 mm in size. These polyps were removed with a jumbo cold forceps. Resection and retrieval were complete. A few small-mouthed diverticula were found in the sigmoid colon and ascending colon. Internal hemorrhoids were found during retroflexion. The hemorrhoids were small. Electronically signed by Mariusz Mcfarland M.D. Mariusz Mcfarland M.D. 08/30/2023 3:32:06 PM Number of Addenda: 0 Note Initiated On: 08/30/2023 12:53 PM Procedure Code(s): --- Professional --- 94016, Colonoscopy, flexible; with removal of tumor(s), polyp(s), or other lesion(s) by snare technique 46114, 59, Colonoscopy, flexible; with biopsy, single or multiple Diagnosis Code(s): --- Professional --- Z12.11, Encounter for screening for malignant neoplasm of colon K64.8, Other hemorrhoids D12.0, Benign neoplasm of cecum D12.4, Benign neoplasm of descending colon D12.5, Benign neoplasm of sigmoid colon K57.30, Diverticulosis of large intestine without perforation orabscess without bleeding CPT copyright 2020 [employer]. All rights reserved. The codes documented in this report are preliminary and upon brim blocker reviewmay be revised to meet current compliance requirements. Recognized by the [place] [employer] for promoting quality in endoscopy Mariusz Mcfarland MD ENDOSCOPY PROCEDURES Final Result * Dexa Axial Skeleton Bone Density 1 or 2 Site (09/13/2020 1:02 PM CDT) Anatomical Region Laterality Modality Body N/A Other 09/13/2020 3:36 PM CDT Narrative 09/13/2020 3:38 PM CDT EXAM DESCRIPTION: DEXA AXIAL SKELETON BONE DENSITY 1 OR MORE SITES REASON FOR STUDY: Post-menopausal female, screening for osteoporosis. Graphic Manager/Model: Higgle (S/N [id number]) CLINICAL INFORMATION: Current height: 65 inches Maximum height: 65 inches Weight: 217 pounds Risk factors: None COMPARISON: None available. FINDINGS: AP LUMBAR SPINE L1-L4: Total BMD is 1.062 g/cm2 T-score is 0.1 LEFT HIP: Total BMD is 1.162 g/cm2 T-score is 1.8 Femoral neck BMD is 0.782 g/cm2 T-score is -0.6 IMPRESSION: Normal bone mineral density by WHO criteria. REFERENCE: Bone mineral density: Normal (T-score above or = -1.0) Low bone mass (T-score between -1.0 and -2.5) replaces the previously used term osteopenia Osteoporosis (T-score = or below -2.5) Medical evaluation for secondary causes of low bone mineral density may be appropriate. FRAX is a World Health Organization validated fracture risk assessment tool that calculates a person's 10 year probability of a major osteoporosis related fracture and hip fracture. According to the National Osteoporosis Foundation guidelines, postmenopausal women and men age 50 or older with low bone mass and a 10 year probability of a major osteoporosis related fracture = or greater than 20% or a 10 year probability of a hip fracture = or greater than 3% should be considered for treatment. For further information, including treatment recommendations, please refer to the 2013 ISCD Official Positions (http://www.iscd.org) and the NOF's Clinician's Guide to Prevention and Treatment of Osteoporosis (http://www.nof.org/professionals/clinical-guidelines) THIS IS AN ELECTRONICALLY VERIFIED FINAL REPORT 09/13/2020 3:38 PM - Electronically signed by Denzel Dodson M.D. AB: Report ID: [id number] Reading Location: [id number] Procedure Note Denzel Dodson MD - 09/13/2020 EXAM DESCRIPTION: DEXA AXIAL SKELETON BONE DENSITY 1 OR MORE SITES REASON FOR STUDY: Post-menopausal female, screening for osteoporosis. Graphic Manager/Model: SportsManias SL (S/N [id number]) CLINICAL INFORMATION: Current height: 65 inches Maximum height: 65 inches Weight: 217 pounds Risk factors: None COMPARISON: None available. FINDINGS: AP LUMBAR SPINE L1-L4: Total BMD is 1.062 g/cm2 T-score is 0.1 LEFT HIP: Total BMD is 1.162 g/cm2 T-score is 1.8 Femoral neck BMD is 0.782 g/cm2 T-score is -0.6 IMPRESSION: Normal bone mineral density by WHO criteria. REFERENCE: Bone mineral density: Normal (T-score above or = -1.0) Low bone mass (T-score between -1.0 and -2.5) replaces thepreviously used term osteopenia Osteoporosis (T-score = or below -2.5) Medical evaluation for secondary causes of low bone mineral density may be appropriate. FRAX is a World Health Organization validated fracture risk assessmenttool that calculates a person's 10 year probability of a major osteoporosisrelated fracture and hip fracture. According to the National OsteoporosisFoundation guidelines, postmenopausal women and men age 50 or older with low bonemass and a 10 year probability of a major osteoporosis related fracture = or greater than 20% or a 10 year probability of a hip fracture = or greaterthan 3% should be considered for treatment. For further information, including treatment recommendations, please referto the 2013 ISCD Official Positions (http://www.iscd.org) and the NOF's Clinician's Guide to Prevention and Treatment of Osteoporosis (http://www.nof.org/professionals/clinical-guidelines) THIS IS AN ELECTRONICALLY VERIFIED FINAL REPORT 09/13/2020 3:38 PM - Electronically signed by Denzel Dodson M.D. AB: Report ID: [id number] Reading Location: [id number] us Felicia Montalvo NP IMG DXA PROCEDURES Final R esult * Hepatitis C antibody (06/03/2020 2:42 PM CDT) Hep C Ab Nonreactive Nonreactive NICOLE JUICE ([place]) Comment: Interpretive Data Nonreactive: Antibodies to HCV not detected. Does NOT exclude the possibility of recent exposure to HCV. Equivocal: Equivocal for HCV antibodies. Supplemental molecular testing will be automatically performed to determine infection status in accordance with current CDC screening recommendations. Reactive: Positive for HCV antibodies. This may represent current or past HCV infection. Supplemental molecular testing will be automatically performed to determine current infection status in accordance with current CDC screening recommendations. Interpretive data was last revised on 2019. Testing performed by: , [address] [place] [address]., [id number] Blood specimen (specimen) 06/03/2020 2:42 PM CDT 06/04/2020 9:50 AM CDT Mariusz Mcfarland MD LAB MICROBIOLOGY - GENERAL ORDERABLES Final Result NICOLE BOSE ([place]) [facility] Department [place] [address] from Last 3 Months or Most Recently Relevant to Health Maintenance Insurance MEDICARE [employer] [place] [facility] [employer] [place] MED[place]ARE [facility] Address: [address] [address] [place] [address] [facility] MEDICARE [facility] Address: [address] [address] [place] [address] [facility] MEDICARE [facility] MEDICARE BCBS FEDERAL Advance Directives For more information, please contact: [phone] Documents on File Type Date Recorded Patient Recreation Teacher Expl anation ADVANCE DIRECTIVE 11/11/2019 1:42 PM Power of Mercury Cracking Tester-Financial/Medical- Updated POA paperwork ADVANCE DIRECTIVE 09/28/2017 Power of A ttorney ADVANCE DIRECTIVE 09/28/2017 Living Nii l ADVANCE DIRECTIVE 03/15/2017 Advance Di rective Checklist * Full Code (Latest Code Status on File) Date Activated Date Inactivated Comments 08/30/2023 1:01 PM 08/30/2023 8:07 PM * Full Code Date Activated Date Inactivated Comments 08/30/2023 1:01 PM 08/30/2023 1:01 PM * Full Code Date Activated Date Inactivated Comments 08/22/2020 7:52 PM 08/25/2020 8:00 PM * Full Code Date Activated Date Inactivated Comments 01/28/2020 8:46 PM 02/03/2020 7:53 PM * Full Code Date Activated Date Inactivated Comments 12/02/2018 9:47 PM 12/04/2018 5:50 PM Healthcare Agents on File Name Relationship Healthcare Agent Relationshi p Communication Jordyn Boyer Daughter Health Care Agent Junior Boyer Son in Law Health Care Agent Junior boyer Son in Law First Alternate Health Care Agent Care Teams Youth Officer Relationship Specialty Start Date End Date Myron Gardner MD [address] [place] [address] PCP - General 01/28/20 Myron Gardner MD [address] [place] [address] 01/28/20 Anna Burns, PT Physical Therapist Physical Therapy 11/09/17 Mario Llanos MD [address] [place] [address] [place] [address] Consulting Physician Neurology 12/04/18 Caren Ann MA ACO Care Mercury Cracking Tester 12/05/18 Mariusz Mcfarland MD Consulting Physician Gastroenterology 02/03/20
--- OUTSIDE RECORDS SUMMARY | 2024-09-28 15:55 | XMS_ITS | Clinical Summary ---
Author Organization [facility] Address [address] [place] [address] Phone Care Team Providers Care Flight Attendant/Inflight Manager Name Role Phone Myron Gardner MD Primary Care Provider [phone] Allergies Active Allergy Reactions Criticality Noted Date Comments Codeine Other (see Comments) 01/21/2020 Penicillins Anaphylaxis 01/21/2020 Sulfa Antibiotics Anaphylaxis 01/21/2020 Medications acetaminophen (TYLENOL) 500 MG Tablet Take 1,000 mg by mouth daily as needed. Active aspirin 325 MG Tablet Take 325 mg by mouth. Active atorvastatin (LIPITOR) 40 MG Tablet Take 40 mg by mouth. 0 Active Cholecalciferol 125 MCG (5000 UT) Tablet Take 5,000 Units by mouth 2 times daily. Active DULoxetine (CYMBALTA) [address] Particles TAKE 1 CAPSULE TWICE DAILY 0 Active ezetimibe (ZETIA) 10 MG Tablet Take 10 mg by mouth. 0 Active levETIRAcetam (KEPPRA) 500 MG Tablet Take 500 mg by mouth. 0 Active levothyroxine (SYNTHROID) 150 MCG Tablet TAKE ONE TABLET BY MOUTH IN THE APPLICATION SECURITY ENGINEER BEFORE BREAKFAST 0 Active metoprolol tartrate (LOPRESSOR) 25 MG Tablet Take 12.5 mg by mouth 2 times daily. 9 Active Multiple Vitamin (Multivitamins) Capsule Take 1 Cap by mouth. Active pregabalin (LYRICA) 25 MG Capsule TAKE ONE CAPSULE BY MOUTH EVERY MORNING AND TAKE TWO CAPSULES BY MOUTH EVERY EVENING 0 Active tiZANidine (ZANAFLEX) 2 MG Tablet Take 4 mg by mouth. 0 Active triamterene-hyd rochlorothiazid e (MAXZIDE) 37.5-25 MG Tablet Take by mouth. 0 Active Active Problems Problem Noted Date Diagnosed Date Lung nodule < 6cm on CT 10/19/2020 Essential (primary) hypertension 10/19/2020 Hypothyroidism 10/19/2020 Immunizations Immunization Administration Dates Next Due Influenza Vaccine, Quadrivalent, PF 12/09/2018 Pneumococcal Vaccine - 13 Valent 12/09/2018 Family History Medical History Relation Name Comments Heart Attack Father AGE 60- Congestive Heart Failure Mother Diabetes Mother Heart Attack Mother Relation Name Status Comments Father Mother Social History Tobacco Use Types Packs/Day Years Used Date Smoking Tobacco: Never Smokeless Tobacco: Never Alcohol Use Standard Drinks/Week Comments Never 0 (1 standard drink = 0.6 oz pur e alcohol) Sexually Active Control Partners Comments Not Currently Comments Unknown Sex and Gender Information Value Date Recorded Sex Assigned at Not on file Legal Sex Female 12:31 AM CDT Gender Identity Not on file Sexual Orientation Not on file Last Filed Vital Signs Vital Sign Reading Time Taken Comments Blood Pressure 135/63 10/26/2020 11:35 AM CDT Pulse 74 10/26/2020 11:35 AM CDT Temperature 36.1 C (97 F) 10/26/2020 11:35 AM CDT Respiratory Rate 16 10/26/2020 11:35 AM CDT Oxygen Saturation 95% 10/26/2020 11:35 AM CDT Inhaled Oxygen Concentration - - Weight 106.6 kg (235 lb) 10/26/2020 7:49 AM CDT Height 162.6 cm (5' 4) 10/26/2020 7:49 AM CDT Body Mass Index 40.34 10/26/2020 7:49 AM CDT Plan of Treatment Health Maintenance Due Date Last Done Comments Hepatitis C Virus (HCV) Screening 1950 TdaP Immunization 1950 Cologuard 1995 Colonoscopy 1995 Colorectal Cancer Screening 1995 Immunochemical Fecal Occult Blood 1995 Zoster Immunization (1 of 2) 01/09/2000 Pneumococcal Immunization (5 0+ years) (2 of 2 - PPSV23) 12/10/2019 12/09/2018 SARS-COV-2 Immunization ( season) 2023 06/22/2020, 05/30/2020 Influenza Immunization (#1) 2024 12/09/2018 Respiratory Syncytial Virus (RSV) Immunization (Adult) (1 - 1-dose 75+ series) 2025 Pneumococcal Immunization Combined Discontinued 12/09/2018 Hepatitis B Immunization Aged Out No longer eligible based on patient's age to complete this topic Human Papillomavirus (HPV) Immunization Aged Out No longer eligible based on patient's age to complete this topic Meningococcal Immunization (ACWY) Aged Out No longer eligible based on patient's age to complete this topic Rotavirus Immunization Aged Out No lo nger eligible based on patient's age to complete this topic Insurance [facility] MEDICARE Care Teams Flight Attendant/Inflight Manager Relationship Specialty Start Date End Date Myron Gardner [place] [address] PCP - General Internal Medicine 01/21/20
--- OUTSIDE RECORDS SUMMARY | 2024-09-28 15:55 | XMS_ITS | Continuity of Care Document ---
Author Organization [facility] Address [place] [id number] Care Team Providers Care Personal Injury Attorney Name Role Phone Jossy Fried MD Unavailable Unavailable Allergies, Adverse Reactions, Alerts Substance Reaction Status Criticality Sulfa (Sulfonamide Antibiotics) Rash Active No Information Penicillins Rash Active No Information Medications Medication Instructions Dosage Effective Dates (start - stop) Status Comments VITAMIN C (unknown strength) Not Available - Active METOPROLOL SUCCINATE (unknown strength) Not Available - Active KEPPRA (unknown strength) Not Available - Active ATORVASTATIN CALCIUM (unknown strength) Not Available - Active CENTRUM SILVER (unknown strength) Not Available - Active DULOXETINE HCL (unknown strength) Not Available - Active LOSARTAN POTASSIUM (unknown strength) Not Available - Active LYRICA (unknown strength) Not Available - Active STOOL SOFTENER (unknown strength) Not Available - Active TIROSINT (unknown strength) Not Available - Active TIZANIDINE HCL (unknown strength) Not Available - Active TRIAMTERENE-HYDROCHLORO THIAZID (unknown strength) Not Available - Active VITAMIN D3 (unknown strength) Not Available - Active ZETIA (unknown strength) Not Available - Active ASPIRIN (unknown strength) Not Available - Active CALCIUM (unknown strength) Not Available - Active Procedures Procedure Date OFFICE/OUTPATIENT VISIT EST Advance Directives Directive Yes / No Effective Date File Name Resuscitation Not Answered N/A N/A Life Support Not Answered N/A N/A Intubation Not Answered N/A N/A Antibiotics Not Answered N/A N/A IV Fluid Support Not Answered N/A N/A Tube Feed Not Answered N/A N/A Other Directive N/A N/A WARNING:The information contained in this section is historical and is provided for information only and does not constitute a legal document or any assurance that the information is still accurate. Please verify the information with the veras of the legal document before using it for clinical purposes. 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 [address], [place], [place], [id number] . 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 [address], [place], [place], [address] . 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 [address], [place], [place], [address] . tel: [phone] [facility], [place], [address], [facility] Spasticity secondary to a CVA (chief complaint) Hemiplegia and hemiparesis following cerebral infarction affecting right dominant sideWheelchai r dependenceSei zuresAphasia as late effect of cerebrovascul ar accident (CVA)History of hypertensionH istory of depressionBod y mass index [BMI] 36.0-36.9, adult Nov- 4 Corky Fenton. [address], [place], [place], [address] . tel: [phone] [facility], [place], [address], [facility] Spasticity secondary to a CVA (chief complaint) Hemiplegia and hemiparesis following cerebral infarction affecting right dominant sideWheelchai r dependenceSei zuresAphasia as late effect of cerebrovascul ar accident (CVA)History of hypertensionH istory of depressionBod y mass index [BMI] 36.0-36.9, adult 4 Corky Fenton. [address], [place], [place], [address] . tel: [phone] [facility], [place], [facility], [facility] Spasticity secondary to a CVA (chief complaint) Hemiplegia and hemiparesis following cerebral infarction affecting right dominant sideSeizuresW heelchair dependenceAph les as late effect of cerebrovascul ar accident (CVA)History of hypertensionB nat[place] mass index [BMI] 36.0-36.9, adultHistory of depression 4 Corky Fenton. [address], [place], [place], [address] . tel: [phone] [facility], [place], [address], [facility] Spasticity secondary to a CVA (chief complaint) Body mass index [BMI] 36.0-36.9, adultHemipleg ia and hemiparesis following cerebral infarction affecting right dominant sideSeizuresA phasia as late effect of cerebrovascul ar accident (CVA)Wheelcha ir dependenceHis tory of hypertension 3 Corky Fenton. [address], [place], [place], [address] . tel: [phone] [facility], [place], [address], [facility] Spasticity secondary to a CVA (chief complaint) Body mass index [BMI] 36.0-36.9, adultHemipleg ia and hemiparesis following cerebral infarction affecting right dominant sideWheelchai r dependenceAph les as late effect of cerebrovascul ar accident (CVA)Seizures History of hypertensionH istory of depression 3 Corky Fenton. [address], [place], [place], [address] . tel: [phone] [facility], [place], [address], [facility] Spasticity secondary to a CVA (chief complaint) Body mass index [BMI] 36.0-36.9, adultHemipleg ia and hemiparesis following cerebral infarction affecting right dominant sideWheelchai r dependenceAph les as late effect of cerebrovascul ar accident (CVA)Seizures History of hypertensionH istory of depression 3 Corky Fenton. [address], [place], [place], [address] . tel: [phone] [facility], [place], [address], [facility] Spasticity secondary to a CVA (chief complaint) Body mass index [BMI] 36.0-36.9, adultHemipleg ia and hemiparesis following cerebral infarction affecting right dominant sideWheelchai r dependenceAph les as late effect of cerebrovascul ar accident (CVA)History of hypertensionH istory of depressionSei zures 3 Corky Fenton. [address], [place], [place], [address] . 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 [address], [place], [place], [address] . tel: [phone] [facility], [place], [address], [facility] Spasticity secondary to a CVA (chief complaint) Body mass index [BMI] 36.0-36.9, adultHemipleg ia and hemiparesis following cerebral infarction affecting right dominant sideAphasia as late effect of cerebrovascul ar accident (CVA)Seizures History of depressionHis tory of hypertension 2 Corky Fenton. [address] [facility] [address], [place], [place], [address] . tel: [phone] [facility], [place], [address], [facility] Spastcity secondary to a CVA (chief complaint) Body mass index [BMI] 36.0-36.9, adultHemipleg ia and hemiparesis following cerebral infarction affecting right dominant sideAphasia as late effect of cerebrovascul ar accident (CVA)Seizures History of depressionHis tory of hypertension 2 Corky Fenton. [address], [place], [place], [address] . tel: [phone] [facility], [place], [address], [facility] Spasticity secondary to a CVA (chief complaint) Body mass index [BMI] 36.0-36.9, adultHemipleg ia and hemiparesis following cerebral infarction affecting right dominant sideAphasia as late effect of cerebrovascul ar accident (CVA)History of hypertensionS eizuresHistor y of depression 2 Corky Fenton. [address], [place], [place], [address] . tel: [phone] [facility], [place], [address], [facility] Follow Up of Spasticity secondary to a CVA (chief complaint) Body mass index [BMI] 36.0-36.9, adultHemipleg ia and hemiparesis following cerebral infarction affecting right dominant sideHistory of depressionHis tory of hypertensionS [facility] 1 Corky Fenton. [address], [place], [place], [address] . tel: [phone] [facility], [place], [address], [facility] Follow Up of Spasticity secondary to a CVA. (chief complaint) Body mass index [BMI] 36.0-36.9, adultHemipleg ia and hemiparesis following cerebral infarction affecting right dominant sideHistory of depressionHis tory of hypertensionS [facility] 1 Corky Fenton. [address], [place], [place], [address] . tel: [phone] [facility], [place], [facility], [facility] Follow Up of Spasticity secondary to a CVA (chief complaint) Body mass index [BMI] 36.0-36.9, adultHemipleg ia and hemiparesis following cerebral infarction affecting right dominant sideAphasia as late effect of cerebrovascul ar accident (CVA)History of depressionHis tory of hypertensionS [facility] 1 Corky Fenton. [address], [place], [place], [address] . tel: [phone] [facility], [place], [facility], [facility] Follow Up of Spasticity secondary to a CVA (chief complaint) Body mass index [BMI] 36.0-36.9, adultHemipleg ia and hemiparesis following cerebral infarction affecting right dominant sideAphasia as late effect of cerebrovascul ar accident (CVA)History of depressionHis tory of hypertensionS [facility] 0 Corky Fenton. [address], [place], [place], [address] . tel: [phone] [facility], [place], [facility], [facility] Follow Up of Spasticity secondary to a CVA (chief complaint) Body mass index (BMI) 36.0-36.9, adultHemipleg ia and hemiparesis following cerebral infarction affecting right dominant sideAphasia as late effect of cerebrovascul ar accident (CVA)History of depressionHis tory of hypertensionS [facility] 0 Corky Fenton. [address], [place], [place], [address] . tel: [phone] Referring Provider: Jossy Fried, [address], [place], [address] . tel:[phone] [facility], [place], [address], [facility] Follow Up of spasticity secondary to a CVA (chief complaint) Body mass index (BMI) 36.0-36.9, adultHemipleg ia and hemiparesis following cerebral infarction affecting right dominant sideAphasia as late effect of cerebrovascul ar accident (CVA)History of depressionHis tory of hypertensionMcL[facility] 0 Corky Fenton. [address], [place], [place], [address] . tel: [phone] Referring Provider: Jossy Fried, [address], [place], [address] . tel:[phone] [facility], [place], [address], [facility] Follow Up of spasticity secondary to a CVA (chief complaint) Body mass index (BMI) 36.0-36.9, adultHemipleg ia and hemiparesis following cerebral infarction affecting right dominant sideAphasia as late effect of cerebrovascul ar accident (CVA)History of depressionHis tory of hypertensionMcLaren [facility] 0 Corky Fenton. [address], [place], [place], [address] . tel:[phone] Referring Provider: Jossy Fried, [address], [place], [address] . tel:[phone] [facility], [place], [address], [facility] Follow Up of spasticity secondary to a CVA (chief complaint) Body mass index (BMI) 34.0-34.9, adultHemipleg ia and hemiparesis following cerebral infarction affecting right dominant sideAphasia as late effect of cerebrovascul ar accident (CVA)History of depressionHis tory of hypertensionS eizures 9 Corky Fenton. [address], [place], [place], [address] . tel: [phone] Referring Provider: Jossy Fried, [address], [place], [address] . tel:[phone] [facility], [place], [address], [facility] Follow Up of Spasticity secondary to a CVA (chief complaint) Body mass index (BMI) 34.0-34.9, adultHemipleg ia and hemiparesis following cerebral infarction affecting right dominant sideHistory of hypertensionA phasia as late effect of cerebrovascul ar accident (CVA)History of depression 9 Corky Fenton. [address], [place], [place], [address] . tel: [phone] Referring Provider: Jossy Fried [address], [place], [address] . tel:[phone] [facility], [place], [address], [facility] Follow Up of spasticity secondary to a stroke (chief complaint) Body mass index (BMI) 34.0-34.9, adultHemipleg ia and hemiparesis following cerebral infarction affecting right dominant sideAphasia as late effect of cerebrovascul ar accident (CVA)History of hypertensionH istory of depression 9 Corky Fenton. [address], [place], [place], [address] . tel: [phone] Referring Provider: Jossy Fried [address], [place], [address] . tel:[phone] [facility], [place], [address], [facility] Follow Up of spasticity secondary to a stroke (chief complaint) Body mass index (BMI) 34.0-34.9, adultHemipleg ia and hemiparesis following cerebral infarction affecting right dominant sideHistory of hypertensionH istory of depressionAph les as late effect of cerebrovascul ar accident (CVA) 9 Corky Fenton. [address], [place], [place], [address] . tel: [phone] Referring Provider: Jossy Fried, [address], [place], [address] . tel:[phone] [facility], [place], [address], [facility] Follow Up of Spasticity secondary to a stroke. (chief complaint) Body mass index (BMI) 34.0-34.9, adultHemipleg ia and hemiparesis following cerebral infarction affecting right dominant sideHistory of hypertensionH istory of hypercholeste rolemiaHistor y of depressionAph les as late effect of cerebrovascul ar accident (CVA) 8 Corky Fenton. [address], [place], [place], [address] . tel: [phone] Referring Provider: Jossy Fried, [address], [place], [address] . tel:[phone] [facility], [place], [address], [facility] Follow Up of Spasticity secondary to a stroke (chief complaint) Body mass index (BMI) 34.0-34.9, adultHemipleg ia and hemiparesis following cerebral infarction affecting right dominant sideAphasia as late effect of cerebrovascul ar accident (CVA)History of hypertensionH istory of hypercholeste rolemiaHistor y of depression 8 Corky Fenton. [address], [place], [place], [address] . tel: [phone] Referring Provider: Jossy Fried, [address], [place], [address] . tel:[phone] [facility], [place], [address], [facility] Follow Up of Spasticity secondary to a Stroke (chief complaint) Body mass index (BMI) 34.0-34.9, adultAphasia as late effect of cerebrovascul ar accident (CVA)Hemipleg ia and hemiparesis following cerebral infarction affecting right dominant side 8 Corky Fenton. [address], [place], [place], [address] . tel: [phone] Referring Provider: Jossy Fried, [address], [place], [address] . tel:[phone] [facility], [place], [address], [facility] Follow Up of Spasticity secondary to a stroke (chief complaint) Body mass index (BMI) 34.0-34.9, adultHemipleg ia and hemiparesis following cerebral infarction affecting right dominant side 8 Corky Fenton. [address], [place], [place], [address] . tel: [phone] Referring Provider: Jossy Fried, [address], [place], [address] . tel:[phone] [facility], [place], [address], [facility] Follow Up of spasticity secondary to a stroke (chief complaint) Body mass index (BMI) 34.0-34.9, adultHemipleg ia and hemiparesis following cerebral infarction affecting right dominant side 7 Corky Fenton. [address], [place], [place], [address] . tel: [phone] Referring Provider: Jossy Fried, [address], [place], [address] . tel:[phone] [facility], [place], [address], [facility] right spastic hemiparesis secondary to CVA (chief complaint) Body mass index (BMI) 34.0-34.9, adultLate effect of cerebrovascul ar accidentHemip legia and hemiparesis following cerebral infarction affecting right dominant side 7 Corky Fenton. [address], [place], [place], [address] . tel: [phone] [facility], [place], [address], [facility] Spastic right hemiparesis s/p CVA (chief complaint) Spastic hemiplegia affecting right dominant sideAphasia as late effect of cerebrovascul ar accident (CVA)Body mass index (BMI) 34.0-34.9, adult May- 7 Corky Fenton. [address], [place], [place], [address] . tel: [phone] [facility], [place], [address], [facility] Spastic right hemiparesis s/p stroke (chief complaint) Spastic hemiplegia affecting right dominant sideLate effect of cerebrovascul ar accident 6 Corky Fenton. [address], [place], [place], [address] . tel: [phone] [facility], [place], [address], [place] [facility] Spastic right hemiparesis s/p CVA (chief complaint) Spastic hemiplegia affecting right dominant sideLate effect of cerebrovascul ar accident 6 Corky Fenton. [address], [place], [place], [address] . tel: [phone] [facility], [place], [address], [place] [facility] right foot pain (chief complaint) Spastic hemiplegia affecting right dominant sideRight foot pain 6 Corky Fenton. [address], [place], [place], [address] . tel: [phone] [facility], [place], [address], [place] [facility] spastic right hemiparesis (chief complaint) Spastic hemiplegia affecting right dominant sideAphasia as late effect of cerebrovascul ar accident (CVA)Late effect of cerebrovascul ar accident 6 Corky Fenton. [address], [place], [place], [address] . tel: [phone] [facility], [place], [address], [facility] Spastic hemiplegia affecting right dominant sideLate effect of cerebrovascul ar accidentAphas ia as late effect of cerebrovascul ar accident (CVA)Apraxia of speech 6 Corky Fenton. [address], [place], [place], [address] . tel: [phone] [facility], [place], [address], [facility] Botox 600u RUE/RLE (chief complaint) Spastic hemiplegia affecting right dominant sideAphasia 5 Corky Fenton. [address], [place], [place], [address] . tel: [phone] OFFICE/OUTPA TIENT VISIT EST [facility], [place], [address], [facility] Follow Up of 11 weeks post botox - RUE/RLE (chief complaint) Spastic hemiplegiaLat e effects of cerebrovascul ar disease 5 Corky Fenton. [address], [place], [place], [address] . tel: [phone] Family History Family Member Type Diagnosis Age At Onset Father Problem (finding) Myocardial infarction ( Cause Of ) Mother Problem (finding) Myocardial infarction Daughter Problem (finding) asthma Daughter Problem (finding) depression Father Problem (finding) Daughter Problem (finding) stroke Mother Problem (finding) Maternal history of neha betes mellitus Mother Problem (finding) coronary arterioscleros is Daughter Problem (finding) Thyroid disorder Payers Payer name Insurance type Covered constitution party ID Authoriza tion(s) Medicare E2 OT [id number] [facility] E2 OT [id number] Social History Type Description Quantity Date Captured Comments Alcohol Use Details Unknown Caffeine Use Details Unknown Tobacco Use Status Never smoked tobacco 2024 Smoking Status Never smoker Non-Smoking Tobacco Use Details : No Details Available : No Details Available Sex Female Vital Signs Date / Time: Height Weight BMI Pulse Rate Blood Pressure Temperature Respiratory Rate Body Surface Area Head Circumference Head Circ. Percentile Wt./Moris. Percentile BMI percentile Pulse Ox Inhaled Ox 1:08 PM 65.00 in 100.244 kg (221.00 lbs) 36.7 8 kg/m eter (2) 77 /min 127/78 mm[Hg] 16 /min Chief Complaint And Reason For Visit From encounter dated '08/13/2024 13:00'. 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 Description: Bree is being seen in my office today, accompanied by her caregiver for a previously scheduled appointment for botulinum toxin injections. She is a very pleasant 74 year old woman who I have been following for her rehabilitation and spasticity needs secondary to stroke, which she suffered in 2011. As a result of the stroke, the patient has right spastic hemiparesis. She receives botulinum toxin injections to the right upper and lower extremities every 90 days with a reduction in the spasticity. Bree needs assistance with ADLs and mobility. She has a power wheelchair that she can propel. She denies any falls or hospitalizations. She cunningham s been stretching her hand at home. Reason For Referral Reason For Referral No Information Plan Of Treatment Date Type Action Status Appointment Bree Naidu Scheduled History Of Present Illness Encounter Date Complaint History Of Prese nt Illness Spasticity secondary to CVA Bree is being seen in my office today, accompanied by her caregiver for a previously scheduled appointment for botulinum toxin injections. She is a very pleasant 74 year old woman who I have been following for her rehabilitation and spasticity needs secondary to stroke, which she suffered in 2011. As a result of the stroke, the patient has right spastic hemiparesis. She receives botulinum toxin injections to the right upper and lower extremities every 90 days with a reduction in the spasticity. Bree needs assistance with ADLs and mobility. She has a power wheelchair that she can propel. She denies any falls or hospitalizations. She has been stretching her hand at home. Spasticity secondary to CVA Bree is being seen in my office today, accompanied by her caregiver for a previously scheduled appointment for botulinum toxin injections. She is a very pleasant 74 year old woman who I have been following for her rehabilitation and spasticity needs secondary to stroke, which she suffered in 2011. 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 She receives botulinum toxin injections to the right upper and lower extremities every 90 days with a reduction in the spasticity. She denies any falls or hospitalizations. She has been stretching her hand at home. Spasticity secondary to CVA Lamont is being seen in my office today, accompanied by her caregiver for a previously scheduled appointment for botulinum toxin injections. She is a very pleasant 74 year old woman who I have been following for her rehabilitation and spasticity needs secondary to stroke, which she suffered in 2011. 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 She receives botulinum toxin injections to the right upper and lower extremities every 90 days with a reduction in the spasticity. She denies any falls or hospitalizations. She has been doing PT and OT, and has been stretching her hand at home. Spasticity secondary to a CVA Iv a is being seen in my office today, accompanied by her caregiver for a previously scheduled appointment for botulinum toxin injections. She is a very pleasant 73 year old woman who I have been following for her rehabilitation and spasticity needs secondary to stroke, which she suffered in 2011. 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 She receives botulinum toxin injections to the right upper and lower extremities every 90 days with a reduction in the spasticity. Spasticity secondary to a CVA Iv a is being seen in my office today, accompanied by her caregiver for a previously scheduled appointment for botulinum toxin injections. She is a very pleasant 73 year old woman who I have been following for her rehabilitation and spasticity needs secondary to stroke, which she suffered in 2011. 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 She receives botulinum toxin injections to the right upper and lower extremities every 90 days with a reduction in the spasticity. Spasticity secondary to a CVA Iv a is being seen in my office today, accompanied by her caregiver for a previously scheduled appointment for botulinum toxin injections. She is a very pleasant 73 year old woman who I have been following for her rehabilitation and spasticity needs secondary to stroke, which she suffered in 2011. 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 She receives botulinum toxin injections to the right upper and lower extremities every 90 days with a reduction in the spasticity. Spasticity secondary to a CVA Iv a is being seen in my office today, accompanied by her caregiver for a previously scheduled appointment for botulinum toxin injections. She is a very pleasant 72 year old woman who I have been following for her rehabilitation and spasticity needs secondary to stroke, which she suffered in 2011. 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 She receives botulinum toxin injections to the right upper and lower extremities every 90 days with a reduction in the spasticity. Spasticity secondary to a CVA Iv a is being seen in my office today, accompanied by her caregiver for a previously scheduled appointment for botulinum toxin injections. She is a very pleasant 72 year old woman who I have been following for her rehabilitation and spasticity needs secondary to stroke, which she suffered in 2011. 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 She receives botulinum toxin injections to the right upper and lower extremities every 90 days with a reduction in the spasticity. Today, Lamont is doing well she does admit to having 1 fall. She tells me that she fell out of her bed while she was sleeping. Spasticity secondary to a CVA Iv a is being seen in my office today, accompanied by her caregiver for a previously scheduled appointment for botulinum toxin injections. She is a very pleasant 72 year old woman who I have been following for her rehabilitation and spasticity needs secondary to stroke, which she suffered in 2011. 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 She receives botulinum toxin injections to the right upper and lower extremities every 90 days with a reduction in the spasticity. Today, Bree is doing well. She tells me that she has not had any falls or hospital visits. Spasticity secondary to a CVA Iv a is being seen in my office today, accompanied by her daughter for a previously scheduled appointment for botulinum toxin injections. She is a very pleasant 72 year old woman who I have been following for her rehabilitation and spasticity needs secondary to stroke, which she suffered in 2011. 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 She receives botulinum toxin injections to the right upper and lower extremities every 90 days with a reduction in the spasticity. Today, Bree is doing well. She tells me that she did have one fall not too long ago where she lost her balance trying to get onto the toilet. She scraped her knee and has a bruise there but nothing else. Bree does therapy at home with her caregiver. Spasticity secondary to CVA Bree is being seen in my office today, accompanied by her daughter for a previously scheduled appointment for botulinum toxin injections. She is a very pleasant 72 year old woman who I have been following for her rehabilitation and spasticity needs secondary to stroke, which she suffered in 2011. 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 She receives botulinum toxin injections to the right upper and lower extremities every 90 days with a reduction in the spasticity. Bree is doing well today. Spasticity secondary to a CVA Iv amrit is being seen in my office today, accompanied by her caregiver for a previously scheduled appointment for botulinum toxin injections. She is a very pleasant 71 year old woman who I have been following for her rehabilitation and spasticity needs secondary to stroke, which she suffered in 2011. 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 She receives botulinum toxin injections to the right upper and lower extremities every 90 days with a reduction in the spasticity. Today, Bree is doing well. Her caregiver tells me that Bree walks at home. Bree has not had any falls or hospital visits recently. Spastcity secondary to a CVA Bree is being seen in my office today, accompanied by her caregiver for a previously scheduled appointment for botulinum toxin injections. She is a very pleasant 71 year old woman who I have been following for her rehabilitation and spasticity needs secondary to stroke, which she suffered in 2011. 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 She receives botulinum toxin injections to the right upper and lower extremities every 90 days with a reduction in the spasticity. Today, Bree is doing well. Her caregiver tells me that she walks everywhere except for when she leaves her house, when she uses her wheelchair. Bree has not had any falls or hospital visits recently. Spasticity secondary to a CVA Iv a is being seen in my office today, accompanied by her caregiver for a previously scheduled appointment for botulinum toxin injections. She is a very pleasant 71 year old woman who I have been following for her rehabilitation and spasticity needs secondary to stroke, which she suffered in 2011. 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 She receives botulinum toxin injections to the right upper and lower extremities every 90 days with a reduction in the spasticity. Bree has been exercising at home and her caregiver helps with these exercises. Her caregiver tells me that she stretch her right arm. She denies any falls or hospital visits recently. Her caregiver informs me that Bree has been walking. She has not been using her wheelchair since before March! She only presents in her wheelchair today because it is a long walk from the car to our office on uneven terrain. Follow Up of Spastic ity secondary to a CVA Bree is being seen in my office today, accompanied by her caregiver for a previously scheduled appointment for botulinum toxin injections. She is a very pleasant 70 year old woman who I have been following for her rehabilitation and spasticity needs secondary to stroke, which she suffered in 2011. 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 She receives botulinum toxin injections to the right upper and lower extremities every 90 days with a reduction in the spasticity. Bree indicates that she has been doing well. She tells me that she is walking and stretching with a 2 lb weight on a daily basis. Follow Up of Spastic ity secondary to a CVA. Bree is being seen in my office today, accompanied by her caregiver for a previously scheduled appointment for botulinum toxin injections. She is a very pleasant 70 year old woman who I have been following for her rehabilitation and spasticity needs secondary to stroke, which she suffered in 2011. 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 She receives botulinum toxin injections to the right upper and lower extremities every 90 days with a reduction in the spasticity. Bree has aphasia. Her caregiver tells me that Bree has been doing well. She tells me that in August she was in the hospital with pneumonia. Bree is stretched on a regular basis. She denies any skin breakdown. Follow Up of Spastic ity secondary to a CVA Bree is being seen in my office today, accompanied by her caregiver for a previously scheduled appointment for botulinum toxin injections. She is a very pleasant 70 year old woman who I have been following for her rehabilitation and spasticity needs secondary to stroke, which she suffered in 2011. 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 She receives botulinum toxin injections to the right upper and lower extremities every 90 days with a reduction in the spasticity. Today, Bree is doing well. She says her last round of injections went well. Bree's caregiver tells me that she had 1 fall that resulted in a bruise on her head. Follow Up of Spastic ity secondary to a CVA Bree is being seen in my office today, accompanied by her caregiver for a previously scheduled appointment for botulinum toxin injections. She is a very pleasant 70 year old woman who I have been following for her rehabilitation and spasticity needs secondary to stroke, which she suffered in 2011. 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 She receives botulinum toxin injections to the right upper and lower extremities every 90 days with a reduction in the spasticity. Bree tells me her last round of injections went well. She denies any falls since we have seen her last. Bree says she is in a giggly mood today. Follow Up of Spastic ity secondary to a CVA Bree is being seen in my office today, accompanied by her daughter, and new caregiver for a previously scheduled appointment for botulinum toxin injections. She is a very pleasant 69 year old woman who I have been following for her rehabilitation and spasticity needs secondary to stroke, which she suffered in 2011. 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 She receives botulinum toxin injections to the right upper and lower extremities every 90 days with a reduction in the spasticity. Bree tells me today that her previous round of injections went good. Bree's daughter said she noticed a big decrease in spasticity. The patient reports no falls at this time. Follow Up of spastic ity secondary to a CVA Bree is being seen in my office today, accompanied by her daughter, for a previously scheduled appointment for botulinum toxin injections. She is a very pleasant 69 year old woman who I have been following for her rehabilitation and spasticity needs secondary to stroke, which she suffered in 2011. 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 Her spasms can be very painful and can interfere with her mobility and ADLs. There have been no seizures since her last visit. Bree is now living with her daughter as her unfortunately . The patient is not attending therapy but she does try to get stretched daily. Bree and her daughter are interested in having some home health in the future for therapy. Follow Up of spastic ity secondary to a CVA Bree is being seen in my office today, accompanied by her , for a previously scheduled appointment for botulinum toxin injections. She is a very pleasant 69 year old woman who I have been following for her rehabilitation and spasticity needs secondary to stroke, which she suffered in 2011. 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 Her spasms can be very painful and can interfere with her mobility and ADLs. There have been no seizures since her last visit. Her tells me that Bree has been having pain in her right calf. He believes that it is related to the botulinum toxin wearing off. She has been receiving these injecting every 90 days with excellent results. The patient is not attending therapy at this time. Follow Up of spastic ity secondary to a CVA Bree is being seen in my office today, accompanied by her and daughter, for a previously scheduled appointment for botulinum toxin injections. She is a very pleasant 69 year old woman who I have been following for her rehabilitation and spasticity needs secondary to stroke, which she suffered in 2011. 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 Her spasms can be very painful and can interfere with her mobility and ADLs. Since her last visit, the patient has had 2 seizures. She is now taking Keppra to help prevent any more. The patient was attending home health for PT, OT and speech. She would like to start again soon. There have bene no falls. Bree is looking forward to the botulinum toxin injections today and getting relief from her spasticity. She continues to wear a brace on her right hand to help keep her fingers from clenching close. Follow Up of Spastic ity secondary to a CVA Bree is being seen in my office today, accompanied by her , for a previously scheduled appointment for botulinum toxin injections. She is a very pleasant 68 year old woman who I have been following for her rehabilitation and spasticity needs secondary to stroke, which she suffered in 2011. 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 Her spasms can be very painful and can interfere with her mobility and ADLs. Since receiving the botulinum toxin injections, her spasms have greatly improved. The patient also suffers from aphasia and continues to work on her speech daily. Bree wears a brace on her right hand to help keep her fingers straight. It continues to fit well. The patient continues to use her power wheelchair for long distances and getting around the house. Bree is not attending therapy at this time. She tries to stretch and exercise at home on a daily basis. Follow Up of spastic ity secondary to a stroke Bree is being seen in my office today, accompanied by her , for a previously scheduled appointment for botulinum toxin injections. She is a very pleasant 68 year old woman who I have been following for her rehabilitation and spasticity needs secondary to stroke, which she suffered in 2011. 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 Her spasms can be very painful and can interfere with her mobility and ADLs. Since receiving the botulinum toxin injections, her spasms have greatly improved. The patient also suffers from aphasia and continues to work on her speech daily. Bree wears a brace on her right hand to help keep her fingers straight. She continues to use her power wheelchair for long distances and getting around the house. The patient has been having pain in her right calf and foot. It has been going on for about a month. There have been no injuries to the area. Her states it just came on all of a sudden and is worse when she walks. Bree's right hand has been hurting as well but her says that is normal when the injections begin to wear off. She is not attending therapy at this time. The patient tries to stretch and exercise on a daily basis. Follow Up of spastic ity secondary to a stroke Bree is being seen in my office today, accompanied by her , for a previously scheduled appointment for botulinum toxin injections. She is a very pleasant 68 year old woman who I have been following for her rehabilitation and spasticity needs secondary to stroke, which she suffered in 2011. 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 Her spasms can be very painful and can interfere with her mobility and ADLs. Since receiving the botulinum toxin injections, her spasms have greatly improved. The patient also suffers from aphasia and continues to work on her speech daily. Bree wears a brace on her right hand to help keep her fingers straight. She continues to use her power wheelchair for long distances and getting around the house. Her tells me that she does walk and uses the wheelchair to conserve energy and put her a t a lower risk for falls. At this time there have been no falls since her last appointment. Follow Up of Spastic ity secondary to a stroke. Bree is being seen in my office today, accompanied by her , for a previously scheduled appointment for botulinum toxin injections. She is a very pleasant 68 year old woman who I have been following for her rehabilitation and spasticity needs secondary to stroke which she suffered in 2011. 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 Her spasms can be very painful and can interfere with her mobility and ADLs. Since receiving the botulinum toxin injections, her spasms have greatly improved. The patient also suffers from aphasia and continues to work on her speech daily. Bree wears a brace on her right hand to help keep her fingers straight. She recently received her new power wheelchair and is really enjoying it. Her husbands helps to stretch her on a daily basis. There have been no falls since her last visit. Follow Up of Spastic ity secondary to a stroke Bree is being seen in my office today, accompanied by her , for previously scheduled botulinum toxin injections. She is a very pleasant 67 year old woman who I have been following for her rehabilitation and spasticity needs secondary to stroke which she suffered in 2011. 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 Her spasms can be very painful and can interfere with her mobility and ADLs. Since receiving the botulinum toxin injections, her spasms have greatly improved. The patient also suffers from aphasia and continues to work on her speech daily. She stretches daily. Bree wears a brace on her right hand to help keep her fingers straight. The patient tells me they are very stiff and painful. She has had no falls since her last visit. Since her daughter had her stroke in June, Bree and her have been very busy helping her and their grandchildren. Follow Up of Spastic ity secondary to a Stroke Bree is being seen in my office today, accompanied by her , for previously scheduled botulinum toxin injections. She is a very pleasant 67 year old woman who I have been following for her rehabilitation and spasticity needs secondary to stroke which she suffered in 2011. 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 Her spasms can be very painful and can interfere with her mobility and ADLs. Since receiving the botulinum toxin injections, her spasms have greatly improved. Bree also suffers from aphasia and is working on her speech daily. She is doing very well, she strechs daily. She wears a brace on her right hand to help keep her fingers straight. Bree tells me they are very stiff and painful today. She has had no falls since her last visit. Of note her daughter recently suffered a massive stroke on June 14 and was treated at [facility]. Follow Up of Spastic ity secondary to a stroke Bree is being seen in my office today, accompained by her ,for previously scheduled botulinum toxin injections. She is a very pleasent 66 year old woman who I have been following for her rehabilitation and spasticity needs secondary to stroke which she suffered in 2011. 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 Her spasms can be very painful and can interfere with her mobility and ADLs. Since receiving the injections, her spasms have greatly improved. Bree also suffers from aphasia and is working on her speech daily. She recently had foot surgery to have a bunion corrected as well as her big toe straightened out. She is currently in a boot to help her walk. She has had no falls since her last visit. Follow Up of spastic ity secondary to a stroke Bree is being seen today in my office, accompanied by her , for previously scheduled botulinum toxin injections. She is a very pleasant 66-year-old woman who I have been following for her rehabilitation and spasticity needs secondary to a CVA in 2011. 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 Bree has been receiving the botulinum toxin injections every 90 days with excellent results. The injections provide Bree with a reduction in the spasticity. With the help of therapy she has achieved a better range of motion, as well as a decrease in the pain associated with the spasticity. The patient continues to work on her speech and streatch daily. Bree is no longer wearing a boot from her ankle sugery. She has completed therapy and feels that her strength is significantly better in the right leg. The patient is now able to walk with a alfonzo-aide at home.Dr. EdwardsBree is being seen today in my office, accompanied by her , for previously scheduled botulinum toxin injections. The patient is a very pleasant 66-year-old woman who I have been following for her rehabilitation and spasticity needs secondary to a CVA which she suffered in 2011. 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 The spasms are painful. They interfere with mobility and ADLs. Bree has been receiving the botulinum toxin injections every 90 days with excellent results. The injections provide Bree with a reduction in the spasticity. With the help of therapy, she has achieved a better range of motion, as well as a decrease in the pain associated with the spasticity. The patient continues to work on her speech daily. Her aphasia is better. Bree is no longer wearing a boot from her ankle sugery. She has completed therapy and feels that her strength is significantly better in the right leg. The patient is now able to walk with a alfonzo-aide at home. right spastic hemipa resis secondary to CVA Bree is being seen today in my office, accompanied by her , for previously scheduled botulinum toxin injections. Bree is a very pleasant 66-year-old woman who I have been following for her rehabiliation and spasticity needs. Bree suffered a CVA in 2011 and as a result she now has right spastic hemiparesis. Bree has been receiving these injections every 90 days, however her last scheduled appointment was missed due to having right foot and ankle surgery to help with the right foot drop. Her states the foot was adjusted back to 90 degrees. She tolerated surgery and is recovering well. Due to the wait for her botulinum toxin while surgery and recovery, she and her notice that she is more tight. The injections have been providing her with a reduction in the spasticity. With the help of therapy she has achieved a better range of motion as well as a decrease in the pain that is associated with the spasms. Bree continues working on her speech. She continues to do daily stretching. Lamont denies any medication changes. She denies any falls. She ambulates using a manual wheelchair. Her right arm is braced and she is currently wearing a walking boot on the right foot as needed after the sugery. She remains motivated. Spastic right hemiparesis s/p CV A Lamont is seen today, accompanied by her , for a previously scheduled botulinum toxin injection. The patient is a very pleasant 65-year-old woman who I have been following for her rehabilitation and spasticity needs following a stroke. As a result of the stroke which occurred in February 2012, she has resultant aphasia and spastic right hemiparesis. She has been receiving botulinum toxin injections to the right upper and lower extremities with good results. Her last injections were performed in January. The range of motion in the arm and leg and the pain associated with the spasticity have improved with the use of botulinum toxin. The ease of transfers and ADLs is also better. They deny any medication changes. Her is very supportive. Her speech continues to improve. They have not been attending therapy at [facility], they said they were never contacted. Her is going to reach to them again. Spastic right hemipa resis s/p stroke Lamont is seen today, accompanied by her , for a previously scheduled botulinum toxin injection. The patient is a very pleasant 65-year-old woman who I have been following for her rehabilitation and spasticity needs following a stroke which occurred in February 2012 following a left CVA wtih resultant aphasia and spastic right hemiparesis. She has been receiving Botox injections to the right upper and lower extremities with good results. Her last injections were performed in October. The range of motion in the arm and leg and the pain associated with the spasticity have improved with the use of Botox. The ease of transfers and ADLs is also better. They deny any medication changes. Her is very supportive. Spastic right hemiparesis s/p CV A Bree is seen today, accompanied by her , for a previously scheduled botulinum toxin injection. The patient is a very pleasant 65-year-old woman who I have been following for her rehabilitation and spasticity needs following a stroke February 2012 wtih resultant spastic right hemiparesis. She has been receiving Botox injections with good results. The range of motion in the arm and leg have improved with the use of Botox. The pain associated with the spasticity is also better. The ease of transfers and ADLs is also better. right foot pain Bree presents tod ay with right foot pain. I have been following her for her rehabilitation and spasticity needs since August 2014. Bree wears a right AFO which was fabricated by Mario Dickson at [employer]. The patient receives Botox every 90 days with excellent results. She feels that the Botox has been helping. She is wondering if there is anything else that can be done to help the spasticity until her next Botox injection. right foot pain Onset: 1 month a go. It occurs constantly. Location: right foot. The pain is throbbing and spasms. There are no aggravating factors. The pain is relieved by OTC medicines (ibuprofen). Associated symptoms include decreased mobility, difficulty initiating sleep, joint tenderness and spasms. Additional information: She is having spasms in her sleep as well as the day time. She can't wear shoes when she is having the spasms. spastic right hemiparesis Bree is seen today accompanied by her for previously scheduled botulinum toxin injection to the right upper and lower extremities. I have been following the rehabilitation and spasticity needs for Mrs. Naidu since August 2014. She suffered a stroke on March 04, 2012 following a left carotid endarterectomy. As a result of the stroke, she has had problems with speech as well as weakness in the right upper and lower extremity associated with painful spasms. She was referred to this office by a local pain management clinic for evaluation and treatment of her spasticity. Bree has had 3 botox injections, all with excellent results. Today, the patient is complaining of an increase in the spasticity in the right upper and lower extremities. Her Botox was scheduled about a month ago but had to be postponed due to medical issues involving her . She is 30 days past due for her treatment. She says that her foot has been hurting and it has been difficult to keep her right AFO on due to the increased spasticity. Her says that when the Botox is on board she is able to use the right arm more readily during functional tasks. She continues to wear her right AFO. She is also wearing a right hand splint. Her exercises with her on a daily basis. Botox 600u RUE/RLE Follow Up of 11 week s post botox - RUE/RLE Functional Status Date Functional Assessmen t No Information Instructions Date Instruction Additional Infor yady Giving encouragement to exercise Related to Body mass index [BMI] 36.0-36.9, adult Fall risk home exerc ise program handout provided Giving encouragement to exercise Related to Body mass index [BMI] 36.0-36.9, adult Giving encouragement to exercise Related to Body mass index [BMI] 36.0-36.9, adult Giving encouragement to exercise Related to Body mass index [BMI] 36.0-36.9, adult Giving encouragement to exercise Related to Body mass index [BMI] 36.0-36.9, adult Giving encouragement to exercise Related to Body mass index [BMI] 36.0-36.9, adult Giving encouragement to exercise Related to Body mass index [BMI] 36.0-36.9, adult Giving encouragement to exercise Related to Body mass index [BMI] 36.0-36.9, adult Giving encouragement to exercise Related to Body mass index [BMI] 36.0-36.9, adult Giving encouragement to exercise Related to Body mass index [BMI] 36.0-36.9, adult Giving encouragement to exercise Related to Body mass index [BMI] 36.0-36.9, adult Giving encouragement to exercise Related to Body mass index [BMI] 36.0-36.9, adult Giving encouragement to exercise Related to Body mass index (BMI) 36.0-36.9, adult No strenuous exercis es or PT for 2 weeks after injection Related to Hemiplegia and hemiparesis following cerebral infarction affecting right dominant side Please continue light stretching Related to Hemiplegia and hemiparesis following cerebral infarction affecting right dominant side No strenuous exercis es or PT for 2 weeks after injection Related to Hemiplegia and hemiparesis following cerebral infarction affecting right dominant side Please continue light stretching Related to Hemiplegia and hemiparesis following cerebral infarction affecting right dominant side Giving encouragement to exercise Related to Body mass index (BMI) 36.0-36.9, adult Giving encouragement to exercise Related to Body mass index (BMI) 36.0-36.9, adult No strenuous exercis es or PT for 2 weeks after injection Related to Hemiplegia and hemiparesis following cerebral infarction affecting right dominant side Please continue light stretching Related to Hemiplegia and hemiparesis following cerebral infarction affecting right dominant side Giving encouragement to exercise Related to Body mass index (BMI) 34.0-34.9, adult Start therapy after 2 weeks Rela keith to Hemiplegia and hemiparesis following cerebral infarction affecting right dominant side Please continue light stretching Related to Hemiplegia and hemiparesis following cerebral infarction affecting right dominant side Start therapy after 2 weeks Rela keith to Hemiplegia and hemiparesis following cerebral infarction affecting right dominant side No strenuous exercis es or PT for 2 weeks after injection Related to Hemiplegia and hemiparesis following cerebral infarction affecting right dominant side Please continue light stretching Related to Hemiplegia and hemiparesis following cerebral infarction affecting right dominant side No strenuous exercis es or PT for 2 weeks after injection Related to Hemiplegia and hemiparesis following cerebral infarction affecting right dominant side Giving encouragement to exercise Related to Body mass index (BMI) 34.0-34.9, adult Please continue light stretching Related to Hemiplegia and hemiparesis following cerebral infarction affecting right dominant side No strenuous exercis es or PT for 2 weeks after injection Related to Hemiplegia and hemiparesis following cerebral infarction affecting right dominant side Giving encouragement to exercise Related to Body mass index (BMI) 34.0-34.9, adult No strenuous exercis es or PT for 2 weeks after injection Related to Hemiplegia and hemiparesis following cerebral infarction affecting right dominant side Please continue light stretching Related to Hemiplegia and hemiparesis following cerebral infarction affecting right dominant side Giving encouragement to exercise Related to Body mass index (BMI) 34.0-34.9, adult No strenuous exercis es or PT for 2 weeks after injection Related to Hemiplegia and hemiparesis following cerebral infarction affecting right dominant side Please continue light stretching Related to Hemiplegia and hemiparesis following cerebral infarction affecting right dominant side Resume/re-start therapy after 2 weeks Related to Hemiplegia and hemiparesis following cerebral infarction affecting right dominant side Giving encouragement to exercise Related to Body mass index (BMI) 34.0-34.9, adult Resume/re-start therapy after 2 weeks Related to Hemiplegia and hemiparesis following cerebral infarction affecting right dominant side Please continue light stretching Related to Hemiplegia and hemiparesis following cerebral infarction affecting right dominant side No strenuous exercis es or PT for 2 weeks after injection Related to Hemiplegia and hemiparesis following cerebral infarction affecting right dominant side Giving encouragement to exercise Related to Body mass index (BMI) 34.0-34.9, adult Resume/re-start therapy after 2 weeks Related to Hemiplegia and hemiparesis following cerebral infarction affecting right dominant side Please continue light stretching Related to Hemiplegia and hemiparesis following cerebral infarction affecting right dominant side No strenuous exercis es or PT for 2 weeks after injection Related to Hemiplegia and hemiparesis following cerebral infarction affecting right dominant side Giving encouragement to exercise Related to Body mass index (BMI) 34.0-34.9, adult No strenuous exercis es or PT for 2 weeks after injection Related to Hemiplegia and hemiparesis following cerebral infarction affecting right dominant side Please continue light stretching Related to Hemiplegia and hemiparesis following cerebral infarction affecting right dominant side Giving encouragement to exercise Related to Body mass index (BMI) 34.0-34.9, adult Resume/re-start therapy after 2 weeks Related to Hemiplegia and hemiparesis following cerebral infarction affecting right dominant side Giving encouragement to exercise Related to Body mass index (BMI) 34.0-34.9, adult No strenuous exercis es or PT for 2 weeks after injection Related to Hemiplegia and hemiparesis following cerebral infarction affecting right dominant side Please continue light stretching Related to Hemiplegia and hemiparesis following cerebral infarction affecting right dominant side Resume/re-start therapy after 2 weeks Related to Spastic hemiplegia affecting right dominant side Please continue light stretching Related to Spastic hemiplegia affecting right dominant side No strenuous exercis es or PT for 2 weeks after injection Related to Spastic hemiplegia affecting right dominant side Giving encouragement to exercise Related to Body mass index (BMI) 34.0-34.9, adult Resume/re-start therapy after 2 weeks Related to Spastic hemiplegia affecting right dominant side Giving encouragement to exercise Related to Body mass index (BMI) 34.0-34.9, adult No strenuous exercis es or PT for 2 weeks after injection Related to Spastic hemiplegia affecting right dominant side Please continue light stretching Related to Spastic hemiplegia affecting right dominant side No strenuous exercis es or PT for 2 weeks after injection Related to Spastic hemiplegia affecting right dominant side Please continue light stretching Related to Spastic hemiplegia affecting right dominant side Please continue light stretching Related to Spastic hemiplegia affecting right dominant side No strenuous exercis es or PT for 2 weeks after injection Related to Spastic hemiplegia affecting right dominant side Please continue light stretching Related to Spastic hemiplegia affecting right dominant side No strenuous exercis es or PT for 2 weeks after injection Related to Spastic hemiplegia affecting right dominant side No strenuous exercis es or PT for 2 weeks after injection Related to Spastic hemiplegia affecting right dominant side Please continue light stretching Related to Spastic hemiplegia affecting right dominant side Fall risk home exerc ise program handout provided Home safety checklis t for fall hazards provided Assessments Type Assessment Date assessment Hemiplegia and hemip aresis following cerebral infarction affecting right dominant side impression Bree presents with sp asticity in the right upper and lower extremities following a stroke. The spasticity causes discomfort. It interferes with ADLs and mobility, adversely affecting her balance and her gait. Bree has undergone therapy and has tried oral antispasticity medications and therapy without acceptable reduction of the focal spasticity. I have gone over the risks and benefits of botulinum toxin injections as well as the onset, peak and duration of action. Written information about the use of botulinum toxin in the treatment of focal spasticity has been provided to the patient. She has been receiving botulinum toxin injections with good results, in terms of reduction of the focal spasticity. Today I I injected 600 units of botulinum toxin to the right upper and lower extremities. The patient tolerated the procedure well. These injections have been providing the patient with a reduction of the focal spasticity. Bree has been exercising regularly. Her caregiver assists her with her stretching. Her range of motion has improved. The pain associated with the spasticity decreases when the botulinum toxin is on board. She is able to assist with ADLs. She is able to ambulate short distances assisted with a alfonzo aide. I would like to see Bree back in 3 months to reinject her with botulinum toxin. Her daughter will call with any issues prior to her next appointment assessment Wheelchair dependence impression Bree does well with her power whe elchair assessment Seizures impression On Keppra. Followed by Dr. 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 Euthymic assessment Body mass index [BMI] 36.0-36.9, adult impression Healthy diet and exercise Mental Status Date Cognitive Assessment N/A Patient Care Teams Name Effective Dates (start - stop) Status Members No Information
--- OUTSIDE RECORDS SUMMARY | 2024-09-28 15:55 | XMS_ITS | Clinical Summary ---
Author Organization [facility] Address [address] [place] [address] Care Team Providers Care Control Tower Radio Operator Name Role Phone Myron Gardner MD Primary Care Provider [phone] Myron Gardner MD Unavailable [phone] Anna Burns PT Unavailable Unavailable Mario Llanos MD Unavailable [phone] Caren Ann MA Unavailable Unavailable Mariusz Mcfarland MD Unavailable Allergies Active Allergy Reactions Criticality Noted Date [...] EVENING. 90 capsule 08/12/19 25 2024 Discontinued(R eocarlos) Active Problems Problem Noted Date Diagnosed Date Pressure ulcer of toe of left foot, stage 1 04/06 Assessment & Plan (07/31/2024 8:36 AM CDT): Healed. Continue monitoring for any new wounds. Continue position changes. Assessment & Plan (04/24/2024 2:43 PM LUNCHEONETTE OPERATOR): Bacitracin ordered. Advised to put gauze between toes to aid in keeping pressure off the toe. Referral placed to Podiatry. Will continue to monitor. Annual physical exam 01/17/2024 Assessment & Plan (01/17/2024 9:53 AM LUNCHEONETTE OPERATOR): Focus of exam is preventative in nature. Reivweed immunizaitons, reivewed sun/skin cnacer screenign. Reiweed colon/breast cacner screening. WIll continue to rita and aleeior response. Encounter for screening mamm ogram for [...] 11/23/2022 Assessment & Plan (01/17/2023 2:28 PM LUNCHEONETTE OPERATOR): Gradually improving; caregiver states surgeon did not [...] 06/26/2022 Assessment & Plan (01/17/2024 9:52 AM LUNCHEONETTE OPERATOR): COntinues on duloxetine and will montior resopnse. NO change. COVID-19 03/02/2022 Assessment & Plan (03/02/2022 12:35 PM LUNCHEONETTE OPERATOR): Discussed concerns for pneumonia and need for additional testing; chest xray labs and fluids. Patient with probably pneumonia and dehydration. Instructed to go to ER. Patient and jyjsrld-in-qpp/care-child caregiver are agreeable to go to ER from [...] 06/20/2020 Assessment & Plan (03/26/2021 11:52 AM LUNCHEONETTE OPERATOR): Schedule [address] liver. Repeat level [...] 01/28/2020 Assessment & Plan (04/24/2024 2:41 PM LUNCHEONETTE OPERATOR): Motorized wheelchair order placed Assessment & Plan (08/22/2020 10:00 PM CDT): Patient has expressive aphasia and residual right-sided weakness. She cannot move her right arm at all however can move her right leg a little. Severe obesity (BMI 35.0-39.9) with comorbidity 05/14/2019 Assessment & Plan (04/24/2024 2:43 PM LUNCHEONETTE OPERATOR): Encouraged heart healthy diet and lifestyle. Advised 150 min/week of aerobic exercise. Hemiplegia affecting right dominant side 020 Assessment & Plan (07/31/2024 8:35 AM CDT): Motorized wheelchair ordered. Assessment & Plan (04/24/2024 2:41 PM LUNCHEONETTE OPERATOR): Motorized wheelchair order placed Assessment & Plan (01/17/2024 9:51 AM LUNCHEONETTE OPERATOR): Continues to be wheelchair bound with right hemiplegia. No skin lesions. No challenges with transfers. Assessment & Plan (01/17/2023 2:29 PM LUNCHEONETTE OPERATOR): S/P CVA Transient alteration of awareness 12/02/2018 H/O: depression 10/15/2017 Assessment & Plan (01/17/2023 2:26 PM LUNCHEONETTE OPERATOR): Stable, currently well controlled Continue cymbalta 20 mg bid H/O: hypertension 10/15/2017 Assessment & Plan (01/17/2023 2:28 PM LUNCHEONETTE OPERATOR): BP well controlled; at goal 108/72 at [...] greens, fat-free milk, cottage cheese, nuts like yoerlyh-tviqklu-quusvsu, protein bars with 10-15 g of protein [...] 08/10/2015 Assessment & Plan (04/24/2024 2:41 PM LUNCHEONETTE OPERATOR): Tylenol extra strength ordered. Advised BID warm water and Epson salt soaks advised to aid in relief of pain and inflammation. Hyperlipidemia 07/19/2013 Overview (06/09/2016): HYPERLIPIDEMIA NEC/NOS Assessment & Plan (01/17/2024 9:50 AM LUNCHEONETTE OPERATOR): Stable on dual therapy with atorvastatin and zetia. No sig myalgias related to medication. Assessment & Plan (10/18/2023 3:07 PM CDT): Continue atorvastatin. Will check lipid panel with next set of labs. Assessment & Plan (07/18/2023 1:47 PM CDT): Lipid panel reviewed. Will continue with atorvastatin. Tolerating without side effects. Will continue to monitor. Assessment & Plan (01/17/2023 2:29 PM LUNCHEONETTE OPERATOR): Currently stable; lipids at goal Continue atorvastatin [...] NOS Assessment & Plan (01/17/2024 9:51 AM LUNCHEONETTE OPERATOR): Stable on triamterene/hctz and will continue to [...] mind. Assessment & Plan (04/24/2024 2:41 PM LUNCHEONETTE OPERATOR): Order for new motorized wheelchair placed along with OT evaluation. Assessment & Plan (01/17/2024 9:50 AM LUNCHEONETTE OPERATOR): No swallowing difficutlies and will montiro resopnse. No aspiration Assessment & Plan (01/17/2023 2:25 PM LUNCHEONETTE OPERATOR): Aphasia s/p CVA Patient was able to [...] transferred currently to the ICU floor with black powder glazing operator consult. Will continue monitoring closely. Seizure precautions, fall precautions, Will obtain neurology consult. EEG in a.m. Stenosis of carotid artery 04/29/2012 Assessment & Plan (12/02/2018 10:43 PM CDT): Will defer to neurology further workup Hypothyroidism 03/23/2010 Overview (06/09/2016): HYPOTHYROIDISM NOS Assessment & Plan (01/17/2024 9:51 AM LUNCHEONETTE OPERATOR): Clinically euthryoid. Ircylnz3u to follow TFTs. Assessment & Plan (07/18/2023 [...] Seizure Assessment & Plan (01/17/2024 9:50 AM LUNCHEONETTE OPERATOR): Continues on ikeppra and will follow response. No change. No recurrent seizure activity. Assessment & Plan (08/22/2020 10:01 PM CDT): Continue Keppra Cirrhosis of liver without ascites Assessment & Plan (01/17/2024 9:52 AM LUNCHEONETTE OPERATOR): No change in constitutional statsu and will follow response. Assessment & Plan (03/26/2021 11:51 AM LUNCHEONETTE OPERATOR): Cirrhosis secondary to fatty liver. Liver function [...] hydration to decrease risk of renal injury. Encounters Date Type Department Care Team Description 08/04/2024 Telephone [facility] [address] [address] Felicia Montalvo NP Medical Question/Miscellaneous 07/31/2024 8:00 AM CDT Telemed[facility] [address] [address] Felicia Montalvo NP Aphasia due [...] in adult (HCC) from Last 3 Months Immunizations Immunization Administration Dates Next Due Influenza, [...] 09/08/2020(Def erred: Patient Refused) Td, adsorbed 01/19/2010 Surgical History Surgery Date Site/Laterality Comments IR G TUBE PLACEMENT PERCUTANEOUS 03/12/2012 N/A CHOLECYSTECTOMY TENDON RELEASE COLONOSCOPY 2012 COLONOSCOPY 08/30/2023 Medical History Medical History Date Comments Adiposity obesity Hypertension hypertension Hx Other Medical 03/04/[address] [place]; Comments: DRS 06/19/2014 -hemorrhagic stroke after carotic artery surgery 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 Stenosis of carotid artery Hyperlipidemia Thyroid disease Coronary artery disease Stroke (HCC) Seizures (HCC) Family History Medical History Relation Name Comments Stroke Daughter Mitra Coronary artery disease Father Pro briones artery disease; Diabetes type II Father Diabetes me llitus type 2; Diabetes Mother Marga Hypertension Mother Marga Hypothyroidism Mother Marga Hypothyroidis m; Relation Name Status Comments Daughter Mitra Alive Father Mother Marga Social History Tobacco Use Types Packs/Day Years [...] on file Legal Sex Female 9:19 AM LUNCHEONETTE OPERATOR Gender Identity Not on file Sexual Orientation Not on file Obstetrics History Last Filed Vital Signs Vital Sign Reading Time Taken Comments Blood Pressure 108/73 05/21/2024 2:20 PM CDT Pulse 92 05/21/2024 2:20 PM CDT Temperature 37 C (98.6 F) 01/16/2024 3:17 PM LUNCHEONETTE OPERATOR Respiratory Rate 18 04/24/2024 1:56 PM LUNCHEONETTE OPERATOR Oxygen Saturation 78% 05/21/2024 2:20 PM CDT Inhaled Oxygen Concentration - - Weight 104.3 kg (230 lb) 07/31/2024 7:57 AM CDT Height 165.1 cm (5' 5) 07/31/2024 7:57 AM CDT Body Mass Index 38.27 07/31/2024 7:57 AM CDT Plan of Treatment Health Maintenance Due Date Last Done Comments Hepatitis B Screening 01/09/1968 Zoster Vaccine (1 of 2) 01/09/2000 DTaP/Tdap/Td Vaccine (1 - Tdap) 01/20/2010 0 Osteoporosis Screening-Bone Density Scan 09/13/2022 09/13/2020 Covid-19 Vaccine (2 - 2023-2 5 season) 2023 05/02/2021 Influenza Vaccine (#1) 2024 , 12/12/2021, 12/09/2018, Additional history exists Well Visit 65+ 01/15/2025 01/16/2024, 01/03, 01/17/2023, Additional history exists Depression Screening 04/24/2025 04/24/2024, 01/16/2024, 01/17/2023, Additional history exists Fall Risk Assessment 07/31/2025 07/31/2024, 04/24/2024, 01/16/2024, Additional history exists Colon Cancer Screening-DNA Stool 08/29/2026 08/30/2023, 07/27/2023, 06/16/2020 Hepatitis C Screening Completed 06/03/2020, 020 Pneumococcal vaccine 65+ Completed 12/12/2021, 09/2018 Colon Cancer Screening-CT Colonography Discontinued 08/30/2023 Colon Cancer Screening-Colonoscopy Discontinued 08/30/2023 Colon Cancer Screening-FIT Discontinued 08/29, 07/27/2023, 06/16/2020 Colon Cancer Screening-Sigmoidoscopy Discontinued 08/30/2023 Breast Cancer Screening-Mammogram Discontinued Procedures Procedure Name Priority Date/Time Associated Diagnosis [...] MD - 08/30/2023 12:53 PM CDT [facility] Patient Name: Bree Vega Procedure Date: 08/30/2023 12:53 PM Date of : 1950 Admit Type: Outpatient Age: 73 Gender: Female Attending MD: Mariusz Mcfarland M.D. Room: [facility] ENDOSCOPY ROOM 1 Note Status: Finalized Patient [...] and retrieved. Clips(MR conditional) were placed. Clip java core developer: [email or web address]. - Two 3 to 5 mm polyps [...] under direct vision. The Pediatric Colonoscope PCF-H190L [id number] was introducedthrough the anus and advanced to [...] clips were successfully placed (MR conditional). Clip java core developer: [email or web address]. There was no bleeding during the procedure. [...] 12:53 PM Procedure Code(s): --- Professional --- 75045, Colonoscopy, flexible; with removal of tumor(s), polyp(s), or other lesion(s) by snare technique 20174, 59, Colonoscopy, flexible; with biopsy, single or multiple Diagnosis Code(s): --- Professional --- Z12.11, Encounter for screening for malignant neoplasm of colon K64.8, Other hemorrhoids D12.0, Benign neoplasm of cecum D12.4, Benign neoplasm of descending colon D12.5, Benign neoplasm of sigmoid colon K57.30, Diverticulosis of large intestine without perforation orabscess without bleeding CPT copyright 2021 [employer]. All rights reserved. The codes documented in this report are preliminary and upon osteologist reviewmay be revised to meet current compliance requirements. Recognized by the [employer] for promoting quality [...] FOR STUDY: Post-menopausal female, screening for osteoporosis. Digital Content Specialist/Model: [employer] SL (S/N 31912) CLINICAL INFORMATION: Current height: 65 inches Maximum [...] by Denzel Dodson M.D. AB: Report ID: [id number] Reading Location: [place] [address] Procedure Note Denzel Dodson MD - 09/13/2020 EXAM DESCRIPTION: DEXA AXIAL SKELETON BONE DENSITY 1 OR MORE SITES REASON FOR STUDY: Post-menopausal female, screening for osteoporosis. Digital Content Specialist/Model: Polar (S/N 57083) CLINICAL INFORMATION: Current height: 65 inches Maximum [...] Electronically signed by Denzel Dodson M.D. AB: AB Report ID: [id number] Reading Location: [id number] Felicia Montalvo OSTEOLOGIST IMG DXA PROCEDURES Final R esult * Hepatitis C antibody (06/03/2020 2:42 PM CDT) Hep C Ab Nonreactive Nonreactive NICOLE BOSE ([place]) Comment: Interpretive Data Nonreactive: Antibodies to HCV [...] last revised on 2019. Testing performed by: [facility], [address] [place] [address]., [id number] Blood specimen (specimen) 06/03/2020 2:42 PM CDT 06/04/2020 9:50 AM CDT Mariusz Mcfarland MD LAB MICROBIOLOGY - GENERAL ORDERABLES Final Result NICOLE BOSE ([place]) [address] [facility] Department [place] [address] from Last 3 Months or Most Recently Relevant to Health Maintenance Insurance MEDICARE [place] MED[place] MEDICARE [facility] MEDICARE [facility] MEDICARE [facility] MEDICARE [facility] FEDERAL Advance Directives For more information, please contact: [phone] Documents on File Type Date Recorded Patient Transmissions Systems Operator Expl anation ADVANCE DIRECTIVE 11/11/2019 1:42 PM Power of Checker In-Financial/Medical- Updated [facility] paperwork ADVANCE DIRECTIVE 09/28/2017 Power of A [...] First Alternate Health Care Agent Care Teams Control Tower Radio Operator Relationship Specialty Start Date End [place] [address] PCP - General 01/28/20 Myron Gardner MD [address] [place] [address] 01/28/20 Anna Burns, PREETHI Physical Therapist Physical Therapy 11/09/17 Mario Llanos MD [address] [place] [address] [place] [address] Consulting Physician Neurology 12/04/18 Caren Ann MA ACO Care Superintendent [facility] 12/05/18 Mariusz Mcfarland MD Consulting Physician Gastroenterology 02/03/20
[2024-09-28 16:23] LABS: Add Urine Microscopic? YES; Appearance Urine Clear (Clear); Glucose Urine UA Negative (Negative); Leukocyte Esterase Ur 3+ LEU/UL (Negative); Nitrate Urine Positive (Negative); Non Pathogenic Casts 0-2; Specific Grav Ur 1.016 (1.001-1.035)
--- NOTE | 2024-09-28 17:20 | PC.NURSE ---
Pt to CT at this time.
[2024-09-28] MEDS: cefTRIAXone 1 GM in SODIUM CHLORIDE 0.9% IV 50 ML 100 ML IVPB (19:02)
[2024-09-28 19:06] VITALS: PULSE 82; RESP 17; O2SAT 96
--- NOTE | 2024-09-28 19:21 | PC.NURSE ---
Report received from KARTHIKEYAN Chi. Assumed care of patient at this time.
[2024-09-28 19:58] VITALS: BP 120/71; PULSE 81; RESP 20; O2SAT 93
== END 2024-09-28 20:01 | disposition home or self-care (01) ==
PROVIDERS: Emergency Medicine; Emergency Provider Physician Assistant; PCP Family Medicine
DX: N39.0 Urinary tract infection, site not specified (principal); I10 Essential (primary) hypertension; I69.920 Aphasia following unspecified cerebrovascular disease; E03.9 Hypothyroidism, unspecified; E78.5 Hyperlipidemia, unspecified
CPT/HCPCS: 36415; 70450; 71046; 80053; 81001; 85025; 85610; 85730; 87086; 93005; 96365; 99284; J0696

== ENCOUNTER 2024-10-01 21:22 | Inpatient (IN) | payer MEDICARE, BC, SELFPAY ==
[2024-10-01] VITALS (13 sets, daily range): BP systolic 147; BP diastolic 74; PULSE 89–102; RESP 15–25; TEMP 36.9; O2SAT 91–94
--- NOTE | ~2024-10-01 | MR_ITS ---
EXAMINATION: MR brain/brain stem wo/w con DATE: 10/02/2024 11:13 INDICATION: Transient ischemic episode. Left-sided hemiparesis with altered mental status. TECHNIQUE: Magnetic resonance imaging (MRI) of the brain and brainstem was performed without and with 20 mL Multihance intravenous contrast. Sequences included sagittal and axial T1-weighted SE, axial d iffusion-weighted FS SE, axial 3D SWAN, axial T2-weighted FLAIR, and axial T2-weighted FSE. Postcontr ast axial and coronal T1-weighted SE was obtained. Apparent diffusion coefficient (ADC) maps were cre ated. COMPARISON: Head CT dated 10/01/[address] angiogram dated 10/02/2024 FINDINGS: Large region of encephalomalacia in the left frontal and parietal lobes along with the insula and lef t basal ganglia consistent with chronic infarct involving the left middle cerebral artery vascular di stribution. Change of prior overlying left frontoparietal craniotomy. There is a chronic region of lo w signal intensity in the left frontoparietal region corresponding to some peripherally calcified, ce ntrally T1 hyperintense heterotopic ossification which does not appear appreciably changed since CT d ated 08/23/2022. There is secondary atrophy of the left side of the betito and left cerebral peduncle. A dditional small region of the cephalad most consistent with old infarct at the right frontal lobe. Th ere are no areas of restricted diffusion to suggest acute infarction. No intracranial hemorrhage or a bnormal intracranial mass lesion. There are a few additional small foci of scattered nonspecific incr eased T2-weighted signal intensity in the pontine and cerebral white matter. There are no intraparenc hymal signal abnormalities seen on the other pulse sequences. Left lateral ventricle. Remaining ventr icles are normal. There are no abnormal extra-axial fluid collections. Flow voids are seen in the cer ebral arteries on the T2-weighted sequences consistent with their expected patency. Mild mucosal thic kening the bilateral ethmoid sinuses. Visualized orbits and soft tissues are unremarkable. There is m ild smooth no other abnormally enhancing brain lesions identified. 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 IMPRESSION: 1. No acute intracranial process. 2. Large chronic infarct involving much of the left middle cerebral artery vascular distribution with change of prior left frontoparietal craniotomy with expected secondary mild pachymeningeal enhanceme nt and with chronic region of heterotopic ossification within the region of encephalomalacia. 3. Additional small old right frontal lobe infarct. Reviewed, dictated and finalized at location A. IMPRESSION: 1. No acute intracranial process. 2. Large chronic infarct involving much of the left middle cerebral artery vasc ular distribution with change of prior left frontoparietal craniotomy with expe cted secondary mild pachymeningeal enhancement and with chronic region of heter otopic ossification within the region of encephalomalacia. 3. Additional small old right frontal lobe infarct.
--- NOTE | ~2024-10-01 | CT_ITS ---
CTA brain carotid Ordering provider: Larisa Bojorquez PA-C History: . No w/u, l sided weakness, hx of previous cva . Comparison: None. Technique: CT angiogram head and neck was performed following timed intravenous injection of contrast . Thin slice axial images and reformatted coronal images were obtained. Three dimensional reformatted images of the brain were also obtained using a [employer] workstation. DLP: 1107 mGy-cm FINDINGS: HEAD: --ANTERIOR AND MIDDLE CEREBRAL ARTERIES AND BRANCHES: Mild atheromatous disease without significant s tenosis. No occlusion. --INTERNAL CAROTID ARTERIES: Moderate atheromatous disease bilaterally (with bulky calcifications) re sulting in mild stenosis but no occlusion. --BASILAR ARTERY AND BRANCHES: Mild atheromatous disease with a 20% stenosis of the basilar artery. --POSTERIOR CEREBRAL ARTERIES: Mild atheromatous disease bilaterally --POSTERIOR COMMUNICATING ARTERIES: Not well visualized likely related to congenital absence or small size. --ANEURYSM: None visualized. --BRAIN: Please refer to report of CT head performed the same day. --BONES AND SUPERFICIAL SOFT TISSUES: Please refer to report of CT head performed the same day. --PARANASAL SINUSES AND MASTOIDS: Please refer to report of CT head done the same day. NECK: --RIGHT CERVICAL CAROTID SYSTEM: Severe atheromatous disease of the carotid bulb and proximal interna l carotid artery. Percent stenosis per NASCET criteria is 70% No carotid dissection. --LEFT CERVICAL CAROTID SYSTEM: Moderate noncalcified (soft) atheromatous disease of the carotid bulb and proximal internal carotid artery. Percent stenosis per NASCET criteria is 40% No carotid dissec tion. --VERTEBRAL ARTERIES: Normal caliber and contour. --VISUALIZED AORTIC ARCH AND BRANCHING VESSELS: Mild calcified atheromatous disease but no significan t stenosis. For example, there is a 30% stenosis of the proximal left subclavian artery. 50% stenosis of the distal right common carotid artery with noncalcified (soft) plaque. --SOFT TISSUES: Unremarkable. --CERVICAL SPINE: Age advanced degenerative changes. IMPRESSION: Soft, noncalcified plaque is present within the bilateral internal carotid arteries, as detailed abov e. Percent stenosis per NASCET criteria is 70% on the right and close to 40% on the left. Bilateral vertebral arteries are widely patent. Densely calcified bilateral intracranial internal carotid arteries, as detailed above. Reviewed, dictated and finalized at location A. IMPRESSION: Soft, noncalcified plaque is present within the bilateral internal carotid sander belkis, as detailed above. Percent stenosis per NASCET criteria is 70% on the right and close to 40% on t he left. Bilateral vertebral arteries are widely patent. Densely calcified bilateral intracranial internal carotid arteries, as detailed above.
--- NOTE | ~2024-10-01 | CT_ITS ---
EXAMINATION: CT brain wo con DATE: 10/01/2024 21:57 INDICATION: ams, previous cva . TECHNIQUE: Computed tomography (CT) of the head was performed without intravenous contrast. The mA wa s adjusted according to patient size. Iterative reconstruction technique was employed. The dose-lengt h product was 681.00 mGy-cm. COMPARISON: 09/28/2024. FINDINGS: No acute intracranial hemorrhage or extra-axial fluid collection. No hydrocephalus, mass, or herniation. Ex vacuo dilation of the left lateral ventricle No acute ischemic infarct. Unremarkable dural venous sinus attenuation. No acute osseous abnormality. Left craniotomy defect. Trace right mastoid fluid, the remaining aerated spaces are clear. Large area of encephalomalacia in the left cerebral hemisphere, with associated dystrophic calcificat ion. More focal encephalomalacia in the right frontal lobe. Mild atrophy. Old bilateral basal ganglia lacunar infarcts. Atherosclerotic intracranial calcifications. IMPRESSION: No acute intracranial process. Reviewed, dictated and finalized at location K.
--- NOTE | ~2024-10-01 | XR_ITS ---
EXAMINATION: XR chest 1V portable Exam Date/Time: 10/01/2024 21:42 CDT HISTORY: ams Comparison: 09/28/2024. RESULT: Lines, tubes, and devices: None. Lungs and pleura: Mild rightward rotation. Low volumes with crowding. Left hemidiaphragm elevation. Granulomatous calcification. Cardiomediastinal silhouette: Stable. Calcified nodes Other: No acute osseous or upper abdominal finding. IMPRESSION: No acute cardiopulmonary process. Reviewed, dictated and finalized at location K.
--- NOTE | 2024-10-01 21:28 | ECG_ITS ---
Test Date: 2024-10-01 21:31:54 Measurements Intervals [place] Rate: 89 P: 40 FL: 194 QRS: 43 QRSD: 95 T: 51 QT: 329 QTc: 401 Interpretive Statements SINUS RHYTHM POSSIBLE LEFT ATRIAL ENLARGEMENT [-0.1mV P-WAVE IN V1/V2] LOW QRS VOLTAGE IN PRECORDIAL LEADS [QRS DEFLECTION < 1.0 mV IN CHEST LEADS] POSSIBLE RIGHT VENTRICULAR CONDUCTION DELAY [RSR (QR) IN V1/V2] Compared to ECG 09/28/2024 15:21:28 No significant changes Electronically Signed On 10-02-2024 11:03:53 CDT by Gonzalez Caruso M.D.
--- OUTSIDE RECORDS SUMMARY | 2024-10-01 22:15 | XMS_ITS | Referral Summary ---
Author Organization [facility] Address [address] [place] [address] Care Team Providers Care Car Mechanic Name Role Phone Myron Gardner MD Primary Care Provider [phone] Myron Gardner MD Unavailable [phone] Anna Burns PT Unavailable Unavailable Mario Llanos MD Unavailable [phone] Caren Ann MA Unavailable Unavailable Mariusz Mcfarland MD Unavailable [phone] Encounters Date Type Department Care Team Description 09/29/2024 Orders Only [facility] [address] [address] Myron Gardner MD 09/28/2024 Orders Only [facility] [place] Health Information Management [address] [place] [address] Scanning, Provider 08/04/2024 [facility]phone [facility] [address] [address] Felicia Montalvo NP Medical Question/Miscellaneous 07/31/2024 8:00 AM CDT [facility] [address] [address] Felicia Montalvo NP Aphasia due [...] mouth 2 (two) times a day Active diphenhydrAMINE (BENADRYL) 25 mg capsule Take 2 tablet/capsule (50 mg total) by mouth nightly Active aspirin 81 mg enteric coated tablet Take 1 tablet (81 mg total) by mouth daily 30 tablet 11 08/01/19 23 Active pregabalin (LYRICA) 25 mg capsuleIndicati ons:Hemiplegia of right dominant side as late effect of cerebral infarction, unspecified hemiplegia type (HCC) TAKE 1 CAPSULE BY MOUTH IN THE MORNING AND TAKE 2 CAPSULES BY MOUTH EVERY EVENING. 90 capsule 11/02/19 24 Active atorvastatin (LIPITOR) 40 mg tabletIndicatio ns:Hemiplegia of right dominant side as late effect [...] Active acetaminophen (Tylenol Extra Strength) 500 mg tabletIndicatio ns:Pain Take 1 tablet (500 mg total) by mouth every 6 (six) hours as needed for pain 30 tablet 04/24/19 25 Active bacitracin 500 unit/gram ointmentIndicat ions:Pressure ulcer of toe of left foot, stage [...] DAY 180 capsule 1 06/20/19 25 Active triamterene-hyd roCHLOROthiazid e 37.5-25 mg per tablet TAKE 1 TABLET [...] 09/02/19 25 Active pregabalin (LYRICA) 25 mg capsuleIndicati ons:Hemiplegia of right dominant side as late effect of cerebral infarction, unspecified hemiplegia type (HCC) TAKE 1 CAPSULE BY MOUTH IN THE MORNING AND TAKE 2 CAPSULES BY MOUTH EVERY EVENING. 90 capsule 09/11/19 25 Active clonazePAM (KlonoPIN) 0.5 mg tablet Take 1 tablet (0.5 mg total) by mouth 2 (two) times a day as needed for anxiety 20 tablet 09/30/19 25 Active pregabalin (LYRICA) 25 mg capsuleIndicati ons:Hemiplegia of right dominant side as late effect of cerebral infarction, unspecified hemiplegia type (HCC) TAKE 1 CAPSULE BY MOUTH IN THE MORNING AND TAKE 2 CAPSULES BY MOUTH EVERY EVENING. 90 capsule 08/12/19 25 025 Discontin ued(Reord er) Active Problems Problem Noted Date Diagnosed Date Pressure ulcer of toe of left foot, stage 1 04/06 Assessment & Plan (07/31/2024 8:36 AM CDT): Healed. Continue monitoring for any new wounds. Continue position changes. Assessment & Plan (04/24/2024 2:43 PM DIESEL ENGINE MECHANIC APPRENTICE): Bacitracin ordered. Advised to put gauze between toes to aid in keeping pressure off the toe. Referral placed to Podiatry. Will continue to monitor. Annual physical exam 01/17/2024 Assessment & Plan (01/17/2024 9:53 AM DIESEL ENGINE MECHANIC APPRENTICE): Focus of exam is preventative in nature. Reivweed immunizaitons, reivewed sun/skin cnacer screenign. Reiweed colon/breast cacner screening. WIll continue to cristophero and aleeior response. Encounter for screening mamm [...] 11/23/2022 Assessment & Plan (01/17/2023 2:28 PM DIESEL ENGINE MECHANIC APPRENTICE): Gradually improving; caregiver states surgeon did not [...] 06/26/2022 Assessment & Plan (01/17/2024 9:52 AM DIESEL ENGINE MECHANIC APPRENTICE): COntinues on duloxetine and will montior resopnse. NO change. COVID-19 03/02/2022 Assessment & Plan (03/02/2022 12:35 PM DIESEL ENGINE MECHANIC APPRENTICE): Discussed concerns for pneumonia and need for additional testing; chest xray labs and fluids. Patient with probably pneumonia and dehydration. Instructed to go to ER. Patient and omegrji-uv-dic/care-buckle strap drum operator are agreeable to go to ER from [...] 06/20/2020 Assessment & Plan (03/26/2021 11:52 AM DIESEL ENGINE MECHANIC APPRENTICE): Schedule [address] liver. Repeat level [...] 01/28/2020 Assessment & Plan (04/24/2024 2:41 PM DIESEL ENGINE MECHANIC APPRENTICE): Motorized wheelchair order placed Assessment & Plan (08/22/2020 10:00 PM CDT): Patient has expressive aphasia and residual right-sided weakness. She cannot move her right arm at all however can move her right leg a little. Severe obesity (BMI 35.0-39.9) with comorbidity 05/14/2019 Assessment & Plan (04/24/2024 2:43 PM DIESEL ENGINE MECHANIC APPRENTICE): Encouraged heart healthy diet and lifestyle. Advised 150 min/week of aerobic exercise. Hemiplegia affecting right dominant side 020 Assessment & Plan (07/31/2024 8:35 AM CDT): Motorized wheelchair ordered. Assessment & Plan (04/24/2024 2:41 PM DIESEL ENGINE MECHANIC APPRENTICE): Motorized wheelchair order placed Assessment & Plan (01/17/2024 9:51 AM DIESEL ENGINE MECHANIC APPRENTICE): Continues to be wheelchair bound with right hemiplegia. No skin lesions. No challenges with transfers. Assessment & Plan (01/17/2023 2:29 PM DIESEL ENGINE MECHANIC APPRENTICE): S/P CVA Transient alteration of awareness 12/02/2018 H/O: depression 10/15/2017 Assessment & Plan (01/17/2023 2:26 PM DIESEL ENGINE MECHANIC APPRENTICE): Stable, currently well controlled Continue cymbalta 20 mg bid H/O: hypertension 10/15/2017 Assessment & Plan (01/17/2023 2:28 PM DIESEL ENGINE MECHANIC APPRENTICE): BP well controlled; at goal 108/72 at [...] greens, fat-free milk, cottage cheese, nuts like jdbgfcc-xwliday-dkdyacm, protein bars with 10-15 g of protein [...] 08/10/2015 Assessment & Plan (04/24/2024 2:41 PM DIESEL ENGINE MECHANIC APPRENTICE): Tylenol extra strength ordered. Advised BID warm water and Epson salt soaks advised to aid in relief of pain and inflammation. Hyperlipidemia 07/19/2013 Overview (06/09/2016): HYPERLIPIDEMIA NEC/NOS Assessment & Plan (01/17/2024 9:50 AM DIESEL ENGINE MECHANIC APPRENTICE): Stable on dual therapy with atorvastatin and zetia. No sig myalgias related to medication. Assessment & Plan (10/18/2023 3:07 PM CDT): Continue atorvastatin. Will check lipid panel with next set of labs. Assessment & Plan (07/18/2023 1:47 PM CDT): Lipid panel reviewed. Will continue with atorvastatin. Tolerating without side effects. Will continue to monitor. Assessment & Plan (01/17/2023 2:29 PM DIESEL ENGINE MECHANIC APPRENTICE): Currently stable; lipids at goal Continue atorvastatin [...] NOS Assessment & Plan (01/17/2024 9:51 AM DIESEL ENGINE MECHANIC APPRENTICE): Stable on triamterene/hctz and will continue to [...] mind. Assessment & Plan (04/24/2024 2:41 PM DIESEL ENGINE MECHANIC APPRENTICE): Order for new motorized wheelchair placed along with OT evaluation. Assessment & Plan (01/17/2024 9:50 AM DIESEL ENGINE MECHANIC APPRENTICE): No swallowing difficutlies and will montiro resopnse. No aspiration Assessment & Plan (01/17/2023 2:25 PM DIESEL ENGINE MECHANIC APPRENTICE): Aphasia s/p CVA Patient was able to [...] transferred currently to the ICU floor with film writer consult. Will continue monitoring closely. Seizure precautions, fall precautions, Will obtain neurology consult. EEG in a.m. Stenosis of carotid artery 04/29/2012 Assessment & Plan (12/02/2018 10:43 PM CDT): Will defer to neurology further workup Hypothyroidism 03/23/2010 Overview (06/09/2016): HYPOTHYROIDISM NOS Assessment & Plan (01/17/2024 9:51 AM DIESEL ENGINE MECHANIC APPRENTICE): Clinically euthryoid. [id number] to follow TFTs. Assessment & Plan (07/18/2023 [...] Seizure Assessment & Plan (01/17/2024 9:50 AM DIESEL ENGINE MECHANIC APPRENTICE): Continues on ikeppra and will follow response. No change. No recurrent seizure activity. Assessment & Plan (08/22/2020 10:01 PM CDT): Continue Keppra Cirrhosis of liver without ascites Assessment & Plan (01/17/2024 9:52 AM DIESEL ENGINE MECHANIC APPRENTICE): No change in constitutional statsu and will follow response. Assessment & Plan (03/26/2021 11:51 AM DIESEL ENGINE MECHANIC APPRENTICE): Cirrhosis secondary to fatty liver. Liver function [...] on file Legal Sex Female 9:19 AM DIESEL ENGINE MECHANIC APPRENTICE Gender Identity Not on file Sexual Orientation Not on file Last Filed Vital Signs Vital Sign Reading Time Taken Comments Blood Pressure 108/73 05/21/2024 2:20 PM CDT Pulse 92 05/21/2024 2:20 PM CDT Temperature 37 C (98.6 F) 01/16/2024 3:17 PM DIESEL ENGINE MECHANIC APPRENTICE Respiratory Rate 18 04/24/2024 1:56 PM DIESEL ENGINE MECHANIC APPRENTICE Oxygen Saturation 78% 05/21/2024 2:20 PM CDT Inhaled Oxygen Concentration - - Weight 104.3 kg (230 lb) 07/31/2024 7:57 AM CDT Height 165.1 cm (5' 5) 07/31/2024 7:57 AM CDT Body Mass Index 38.27 07/31/2024 7:57 AM CDT Plan of Treatment Not on file Procedures Procedure Name Priority Date/Time Associated Diagnosis Comments SCAN - RADIOLOGY/IMAGING 09/28/2024 COLONOSCOPY 08/30/2023 12:53 PM CDT DEXA AXIAL SKELETON BONE DENSITY 1 OR MORE SITES Schedule Routine, Read Routine (OP Routine) 09/13/2020 1:02 PM CDT Encounter for osteoporosis screening in asymptomatic postmenopausal patient HEPATITIS C ANTIBODY Routine 06/03/2020 2:42 PM CDT from Last 3 Months or Most Recently Relevant to Health Maintenance Results * SCAN - RADIOLOGY/IMAGING (09/28/2024) Anatomical Region Laterality Modality Other us Provider Scanning Edited Result - Final * Colonoscopy (08/30/2023 12:53 PM CDT) Anatomical Region Laterality Modality Other Narrative Procedure Note Mariusz Mcfarland MD - 08/30/2023 12:53 PM CDT [facility] Patient Name: Bree Naidu Procedure Date: 08/30/2023 12:53 PM Date of : 1950 Admit Type: Outpatient Age: 73 Gender: Female Attending MD: Mariusz Mcfarland M.D. Room: [facility] ENDOSCOPY ROOM 1 Note Status: [...] and retrieved. Clips(MR conditional) were placed. Clip balance engineer: Jumpido. - Two 3 to 5 mm polyps [...] under direct vision. The Pediatric Colonoscope [id number]-[id number] was introducedthrough the anus and advanced to [...] clips were successfully placed (MR conditional). Clip balance engineer: Jumpido. There was no bleeding during the procedure. [...] 12:53 PM Procedure Code(s): --- Professional --- 27176, Colonoscopy, flexible; with removal of tumor(s), polyp(s), or other lesion(s) by snare technique 28444, 59, Colonoscopy, flexible; with biopsy, single or multiple Diagnosis Code(s): --- Professional --- Z12.11, Encounter for screening for malignant neoplasm of colon K64.8, Other hemorrhoids D12.0, Benign neoplasm of cecum D12.4, Benign neoplasm of descending colon D12.5, Benign neoplasm of sigmoid colon K57.30, Diverticulosis of large intestine without perforation orabscess without bleeding CPT copyright 2020 [employer]. All rights reserved. The codes documented in this report are preliminary and upon sales account executive reviewmay be revised to meet current compliance requirements. Recognized by the [employer] for promoting quality [...] FOR STUDY: Post-menopausal female, screening for osteoporosis. Waxer Operator/Model: Zounds SL (S/N [id number]) CLINICAL INFORMATION: Current height: 65 inches Maximum [...] Denzel Dodson M.D. AB: AB Report ID: [id number] Reading Location: [id number] Procedure Note Denzel Dodson MD - 09/13/2020 EXAM DESCRIPTION: DEXA AXIAL SKELETON BONE DENSITY 1 OR MORE SITES REASON FOR STUDY: Post-menopausal female, screening for osteoporosis. Waxer Operator/Model: Zounds SL (S/N [id number]) CLINICAL INFORMATION: Current height: 65 inches Maximum [...] Denzel Dodson M.D. AB: AB Report ID: [id number] Reading Location: [id number] us Felicia Montalvo NP IMG DXA PROCEDURES Final R esult * Hepatitis C antibody (06/03/2020 2:42 PM CDT) Hep C Ab Nonreactive Nonreactive NICOLE BOSE (VERN) Comment: Interpretive Data Nonreactive: Antibodies to HCV [...] last revised on 2019. Testing performed by: [facility], [address] [place] [address]., [facility] Blood specimen (specimen) 06/03/2020 2:42 PM CDT 06/04/2020 9:50 AM CDT Mariusz Mcfarland MD LAB MICROBIOLOGY - GENERAL ORDERABLES Final Result NICOLE BOSE (VERN) 1 [facility] [place] [address] from Last 3 Months or Most Recently Relevant to Health Maintenance Insurance MEDICARE [facility] MEDICARE [facility] Member Subscriber Plan / Payer (Ef fective 1997-Present) Name:Christofer Naiduamrit Muñoz Relation to Subscriber:Spouse Name:GARYVERONIQUE Sylvia Date of :1944 (Home) Address: [address] [place] [id number] Payer ID:[id number] (NAIC) Group ID:[id number] Type: [employer] Address: [address] MEDICARE [facility] MEDICARE [facility] MEDICARE [facility] MEDICARE [facility] FEDERAL Advance Directives For more information, please contact: [phone] Documents on File Type Date Recorded Patient It Security Architect Expl anation ADVANCE DIRECTIVE 11/11/2019 1:42 PM Power of Braider Tender-Financial/Medical- Updated POA paperwork ADVANCE DIRECTIVE 09/28/2017 Power [...] First Alternate Health Care Agent Care Teams Car Mechanic Relationship Specialty Start Date End Date Myron Gardner MD [address] [place] [address] PCP - General 01/28/20 Myron Gardner MD [address] [place] [address] 01/28/20 Anna Burns, PT Physical Therapist Physical Therapy 11/09/17 Mario Llanos MD [address] [place] [address] [place] [address] Consulting Physician Neurology 12/04/18 Caren Ann MA [facility]on Winder 12/05/18 Mariusz Mcfarland MD Consulting Physician Gastroenterology 02/03/20
--- OUTSIDE RECORDS SUMMARY | 2024-10-01 22:15 | XMS_ITS | Clinical Summary ---
Author Organization [facility] Address [address] [place] [address] Care Team Providers Care Book Canvasser Name Role Phone Myron Gardner MD Primary Care Provider [phone] Myron Gardner MD Unavailable [phone] Anna Burns PT Unavailable Unavailable Mario Llanos MD Unavailable [phone] Caren Ann MA Unavailable Unavailable Mariusz Mcfarland MD Unavailable [phone] Allergies Active Allergy Reactions Criticality Noted Date [...] changes. Assessment & Plan (04/24/2024 2:43 PM ELECTRIC TRUCKER): Bacitracin ordered. Advised to put gauze between toes to aid in keeping pressure off the toe. Referral placed to Podiatry. Will continue to monitor. Annual physical exam 01/17/2024 Assessment & Plan (01/17/2024 9:53 AM ELECTRIC TRUCKER): Focus of exam is preventative in nature. [...] 11/23/2022 Assessment & Plan (01/17/2023 2:28 PM ELECTRIC TRUCKER): Gradually improving; caregiver states surgeon did not [...] 06/26/2022 Assessment & Plan (01/17/2024 9:52 AM ELECTRIC TRUCKER): COntinues on duloxetine and will montior resopnse. NO change. COVID-19 03/02/2022 Assessment & Plan (03/02/2022 12:35 PM ELECTRIC TRUCKER): Discussed concerns for pneumonia and need for additional testing; chest xray labs and fluids. Patient with probably pneumonia and dehydration. Instructed to go to ER. Patient and owtuyvj-ia-enb/care-program director substance abuse are agreeable to go to ER from [...] 06/20/2020 Assessment & Plan (03/26/2021 11:52 AM ELECTRIC TRUCKER): Schedule [address] liver[address] Repeat level today. Assessment & Plan (09/14/2020 12:47 PM CDT): Mild elevation at 10. Most recent imaging ultrasound of the liver in June 2020 showed hepatic steatosis with no focal lesion. Will plan repeat testing in months. Assessment & Plan (06/20/2020 11:44 AM CDT): Will follow level every three months. No liver mass lesions noted. 2019 novel coronavirus disease (COVID-19) 2019 CVA, old, aphasia 01/28/2020 Assessment & Plan (04/24/2024 2:41 PM ELECTRIC TRUCKER): Motorized wheelchair order placed Assessment & Plan (08/22/2020 10:00 PM CDT): Patient has expressive aphasia and residual right-sided weakness. She cannot move her right arm at all however can move her right leg a little. Severe obesity (BMI 35.0-39.9) with comorbidity 05/14/2019 Assessment & Plan (04/24/2024 2:43 PM ELECTRIC TRUCKER): Encouraged heart healthy diet and lifestyle. Advised 150 min/week of aerobic exercise. Hemiplegia affecting right dominant side 020 Assessment & Plan (07/31/2024 8:35 AM CDT): Motorized wheelchair ordered. Assessment & Plan (04/24/2024 2:41 PM ELECTRIC TRUCKER): Motorized wheelchair order placed Assessment & Plan (01/17/2024 9:51 AM ELECTRIC TRUCKER): Continues to be wheelchair bound with right hemiplegia. No skin lesions. No challenges with transfers. Assessment & Plan (01/17/2023 2:29 PM ELECTRIC TRUCKER): S/P CVA Transient alteration of awareness 12/02/2018 H/O: depression 10/15/2017 Assessment & Plan (01/17/2023 2:26 PM ELECTRIC TRUCKER): Stable, currently well controlled Continue cymbalta 20 mg bid H/O: hypertension 10/15/2017 Assessment & Plan (01/17/2023 2:28 PM ELECTRIC TRUCKER): BP well controlled; at goal 108/72 at [...] greens, fat-free milk, cottage cheese, nuts like aqvuxql-lwkrxbl-opllhzh, protein bars with 10-15 g of protein [...] 08/10/2015 Assessment & Plan (04/24/2024 2:41 PM ELECTRIC TRUCKER): Tylenol extra strength ordered. Advised BID warm water and Epson salt soaks advised to aid in relief of pain and inflammation. Hyperlipidemia 07/19/2013 Overview (06/09/2016): HYPERLIPIDEMIA NEC/NOS Assessment & Plan (01/17/2024 9:50 AM ELECTRIC TRUCKER): Stable on dual therapy with atorvastatin and zetia. No sig myalgias related to medication. Assessment & Plan (10/18/2023 3:07 PM CDT): Continue atorvastatin. Will check lipid panel with next set of labs. Assessment & Plan (07/18/2023 1:47 PM CDT): Lipid panel reviewed. Will continue with atorvastatin. Tolerating without side effects. Will continue to monitor. Assessment & Plan (01/17/2023 2:29 PM ELECTRIC TRUCKER): Currently stable; lipids at goal Continue atorvastatin [...] NOS Assessment & Plan (01/17/2024 9:51 AM ELECTRIC TRUCKER): Stable on triamterene/hctz and will continue to [...] mind. Assessment & Plan (04/24/2024 2:41 PM ELECTRIC TRUCKER): Order for new motorized wheelchair placed along with OT evaluation. Assessment & Plan (01/17/2024 9:50 AM ELECTRIC TRUCKER): No swallowing difficutlies and will montiro resopnse. No aspiration Assessment & Plan (01/17/2023 2:25 PM ELECTRIC TRUCKER): Aphasia s/p CVA Patient was able to [...] transferred currently to the ICU floor with carton lettering machine operator consult. Will continue monitoring closely. Seizure precautions, fall precautions, Will obtain neurology consult. EEG in a.m. Stenosis of carotid artery 04/29/2012 Assessment & Plan (12/02/2018 10:43 PM CDT): Will defer to neurology further workup Hypothyroidism 03/23/2010 Overview (06/09/2016): HYPOTHYROIDISM NOS Assessment & Plan (01/17/2024 9:51 AM ELECTRIC TRUCKER): Clinically euthryoid. [id number] to follow TFTs. Assessment & Plan (07/18/2023 [...] Seizure Assessment & Plan (01/17/2024 9:50 AM ELECTRIC TRUCKER): Continues on ikeppra and will follow response. No change. No recurrent seizure activity. Assessment & Plan (08/22/2020 10:01 PM CDT): Continue Keppra Cirrhosis of liver without ascites Assessment & Plan (01/17/2024 9:52 AM ELECTRIC TRUCKER): No change in constitutional statsu and will follow response. Assessment & Plan (03/26/2021 11:51 AM ELECTRIC TRUCKER): Cirrhosis secondary to fatty liver. Liver function [...] Description 09/29/2024 Orders Only [facility] [address] [address] Myron Gardner MD 09/28/2024 Orders Only [facility] [place] [place] Health Information Management [address] [place] [address] Scanning, Provider 08/04/2024 Telephone [facility] [address] [address] Felicia Montalvo NP Medical Question/Miscellaneous 07/31/2024 8:00 AM CDT [facility] [address] [address] Felicia Montalvo NP Aphasia due [...] Other Medical 03/04/[address] [place]; Comments: PADMAJA 06/19/2014 -hemorrhagic stroke after carotic artery surgery [...] on file Legal Sex Female 9:19 AM ELECTRIC TRUCKER Gender Identity Not on file Sexual Orientation Not on file Obstetrics History Last Filed Vital Signs Vital Sign Reading Time Taken Comments Blood Pressure 108/73 05/21/2024 2:20 PM CDT Pulse 92 05/21/2024 2:20 PM CDT Temperature 37 C (98.6 F) 01/16/2024 3:17 PM ELECTRIC TRUCKER Respiratory Rate 18 04/24/2024 1:56 PM ELECTRIC TRUCKER Oxygen Saturation 78% 05/21/2024 2:20 PM CDT [...] Female Attending MD: Mariusz Mcfarland M.D. Room: [facility] 1 Note Status: Finalized [...] and retrieved. Clips(MR conditional) were placed. Clip ward supervisor: Zvooq. - Two 3 to 5 mm polyps [...] under direct vision. The Pediatric Colonoscope PCF-H190L [id number] was introducedthrough the anus and advanced to [...] clips were successfully placed (MR conditional). Clip ward supervisor: Zvooq. There was no bleeding during the procedure. [...] 12:53 PM Procedure Code(s): --- Professional --- 62845, Colonoscopy, flexible; with removal of tumor(s), polyp(s), or other lesion(s) by snare technique 22729, 59, Colonoscopy, flexible; with biopsy, single or multiple Diagnosis Code(s): --- Professional --- Z12.11, Encounter for screening for malignant neoplasm of colon K64.8, Other hemorrhoids D12.0, Benign neoplasm of cecum D12.4, Benign neoplasm of descending colon D12.5, Benign neoplasm of sigmoid colon K57.30, Diverticulosis of large intestine without perforation orabscess without bleeding CPT copyright 2020 [employer] [place] [employer]. All rights reserved. The codes documented in this report are preliminary and upon shift production supervisor reviewmay be revised to meet current compliance requirements. Recognized by the [place] [employer] for promoting quality [...] FOR STUDY: Post-menopausal female, screening for osteoporosis. Fisher Lobster/Model: fastDove (S/N [id number]) CLINICAL INFORMATION: Current height: 65 inches Maximum [...] by Denzel Dodson M.D. AB: Report ID: [id number] Reading Location: [id number] Procedure Note Denzel Dodson MD - 09/13/2020 EXAM DESCRIPTION: DEXA AXIAL SKELETON BONE DENSITY 1 OR MORE SITES REASON FOR STUDY: Post-menopausal female, screening for osteoporosis. Fisher Lobster/Model: Pin or Peg SL (S/N [id number]) CLINICAL INFORMATION: Current height: 65 inches Maximum [...] Denzel Dodson M.D. AB: AB Report ID: [id number] Reading Location: [id number] us Felicia Montalvo NP IMG DXA PROCEDURES Final R esult * Hepatitis C antibody (06/03/2020 2:42 PM CDT) Hep C Ab Nonreactive Nonreactive NICOLE BOSE (BOYD) Comment: Interpretive Data Nonreactive: Antibodies to HCV [...] last revised on 2019. Testing performed by: [facility], [address] [place] [address]., [id number] Blood specimen (specimen) 06/03/2020 2:42 PM CDT 06/04/2020 9:50 AM CDT Mariusz Mcfarland MD LAB MICROBIOLOGY - GENERAL ORDERABLES Final Result NICOLE BOSE (VERN) [address] [facility] Department [place] [address] from Last 3 Months or Most Recently Relevant to Health Maintenance Insurance MEDICARE [place] MEDICARE [facility] [employer] Member Subscriber Plan / Payer (Ef fective 1997-Present) Name:Bree Vega Relation to Subscriber:Spouse Name:VERONIQUE VEGA Date of :1944 (Home) Address: [address] [place] [address] Payer ID:[id number] (NAIC) Group ID:[id number] Type: [employer] Address: [address] MEDICARE [facility] MEDICARE [facility] MEDICARE [facility] MEDICARE [facility] Advance Directives For more information, please contact: [phone] Documents on File Type Date Recorded Patient Delivery Tech Expl anation ADVANCE DIRECTIVE 11/11/2019 1:42 PM Power of Medical Records Assistant-Financial/Medical- Updated POA paperwork ADVANCE DIRECTIVE 09/28/2017 Power [...] First Alternate Health Care Agent Care Teams Book Canvasser Relationship Specialty Start Date End Date Myron Gardner MD [address] [place] [address] PCP - General 01/28/20 Myron Gardner MD [address] [place] [address] 01/28/20 Anna Burns, PT Physical Therapist Physical Therapy 11/09/17 Mario Llanos MD [address] [place] [address] [place] [address] Consulting Physician Neurology 12/04/18 Caren Ann MA ACO Care Combiner 12/05/18 Mariusz Mcfarland MD Consulting Physician Gastroenterology 02/03/20
--- OUTSIDE RECORDS SUMMARY | 2024-10-01 22:15 | XMS_ITS | Encounter Summary ---
Author Organization [facility] Address [address] [place] [address] Care Team Providers Care Programmer Business Name Role Phone Myron Gardner MD Primary Care Provider [phone] Myron Gardner MD Unavailable [phone] Anna Burns PT Unavailable Unavailable Mario Llanos MD Unavailable [phone] Craen Ann MA Unavailable Unavailable Mariusz Mcfarland MD Unavailable [phone] Encounter Details Date Type Department Care Team (Late st Contact Info) Description 09/28/[address] 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 Gender Identity Not on file Sexual Orientation Not on file documented as of this encounter Plan of Treatment Not on file documented as of this encounter Procedures Procedure Name Priority Date/Time Associated Diagnosis Comments SCAN - RADIOLOGY/IMAGING 09/28/2024 documented in this encounter Results * SCAN - RADIOLOGY/IMAGING (09/28/2024) Anatomical Region Laterality Modality Other us Provider Scanning Edited Result - Final documented in this encounter Visit Diagnoses Not on filedocumented in this encounter Care Teams Programmer Business Relationship Specialty Start Date End Date Myron Gardner MD [address] [place] [address] PCP - General 01/28/20 Myron Gardner MD [address] [place] [address] 01/28/20 Anna Burns, PREETHI Physical Therapist Physical Therapy 11/09/17 Mario Llanos MD [address] [facility] [facility] [place] [address] Consulting Physician Neurology 12/04/18 Caren Ann MA ACO Care Packing And Final Assembly Supervisor 12/05/18 Mariusz Mcfarland MD Consulting Physician Gastroenterology 02/03/20 documented as of this encounter
--- OUTSIDE RECORDS SUMMARY | 2024-10-01 22:15 | XMS_ITS | Continuity of Care Document ---
Author Organization [facility] Address [place] [address] Care Team Providers Care Police Communications Operator Name Role Phone Jossy Fried MD Unavailable Unavailable Allergies, Adverse Reactions, Alerts Substance Reaction Status Criticality Sulfa (Sulfonamide Antibiotics) Rash Active No Information Penicillins Rash Active No Information Medications Medication Instructions Dosage Effective Dates (start - stop) Status Comments VITAMIN C (unknown strength) Not Available - Active KEPPRA (unknown strength) Not Available - Active METOPROLOL SUCCINATE (unknown strength) Not Available - Active CALCIUM (unknown strength) Not Available - Active ASPIRIN (unknown strength) Not Available - Active ZETIA (unknown strength) Not Available - Active VITAMIN D3 (unknown strength) Not Available - Active TRIAMTERENE-HYDROCHLORO THIAZID (unknown strength) Not Available - Active TIZANIDINE HCL (unknown strength) Not Available - Active TIROSINT (unknown strength) Not Available - Active STOOL SOFTENER (unknown strength) Not Available - Active LYRICA (unknown strength) Not Available - Active LOSARTAN POTASSIUM (unknown strength) Not Available - Active DULOXETINE HCL (unknown strength) Not Available - Active CENTRUM SILVER (unknown strength) Not Available - Active ATORVASTATIN [...] on Encounter [facility], [place], [address], [facility] 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 [address], [place], [place], [id number] . 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 [address], [place], [place], [address] . 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 [address], [place], [place], [address] . tel: [phone] [facility], [place], [address], [facility] Spasticity secondary to a CVA (chief complaint) Hemiplegia and hemiparesis following cerebral infarction affecting right dominant sideWheelchai r dependenceSei zuresAphasia as late effect of cerebrovascul ar accident (CVA)History of hypertensionH istory of depressionBod y mass index [BMI] 36.0-36.9, adult Nov- 4 Corky Fenton. [address], [place], [place], [address] . tel: [phone] [facility], [place], [address], [facility] Spasticity secondary to a CVA (chief complaint) Hemiplegia and hemiparesis following cerebral infarction affecting right dominant sideWheelchai r dependenceSei zuresAphasia as late effect of cerebrovascul ar accident (CVA)History of hypertensionH istory of depressionBod y mass index [BMI] 36.0-36.9, adult 4 Corky Fenton. [address], [place], [place], [address] . tel: [phone] [facility], [place], [place], [facility], [facility] Spasticity secondary to a CVA (chief complaint) Hemiplegia and hemiparesis following cerebral infarction affecting right dominant sideSeizuresW heelchair dependenceAph les as late effect of cerebrovascul ar accident (CVA)History of hypertensionB nat[place] mass index [BMI] 36.0-36.9, adultHistory of depression 4 Corky Fenton. [address], [place], [place], [address] . tel: [phone] [facility], [place], [address], [facility] Spasticity secondary to a CVA (chief complaint) Body mass index [BMI] 36.0-36.9, adultHemipleg ia and hemiparesis following cerebral infarction affecting right dominant sideSeizuresA phasia as late effect of cerebrovascul ar accident (CVA)Wheelcha ir dependenceHis tory of hypertension 3 Corky Fenton. [address], [place], [place], [address] . tel: [phone] [facility], [place], [address], [facility] Spasticity secondary to a CVA (chief complaint) Body mass index [BMI] 36.0-36.9, adultHemipleg ia and hemiparesis following cerebral infarction affecting right dominant sideWheelchai r dependenceAph les as late effect of cerebrovascul ar accident (CVA)Seizures History of hypertensionH istory of depression 3 Corky Fenton. [address], [place], [place], [address] . tel: [phone] [facility], [place], [address], [facility] Spasticity secondary to a CVA (chief complaint) Body mass index [BMI] 36.0-36.9, adultHemipleg ia and hemiparesis following cerebral infarction affecting right dominant sideWheelchai r dependenceAph les as late effect of cerebrovascul ar accident (CVA)Seizures History of hypertensionH istory of depression 3 Corky Fenton. [address], [place], [place], [address] . tel: [phone] [facility], [place], [address], [facility] Spasticity secondary to a CVA (chief complaint) Body mass index [BMI] 36.0-36.9, adultHemipleg ia and hemiparesis following cerebral infarction affecting right dominant sideWheelchai r dependenceAph les as late effect of cerebrovascul ar accident (CVA)History of hypertensionH istory of depressionSei zures 3 Corky Fenton. [address], [place], [place], [address] . 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 [address], [place], [place], [address] . tel: [phone] [facility], [place], [address], [facility] Spasticity secondary to a CVA (chief complaint) Body mass index [BMI] 36.0-36.9, adultHemipleg ia and hemiparesis following cerebral infarction affecting right dominant sideAphasia as late effect of cerebrovascul ar accident (CVA)Seizures History of depressionHis tory of hypertension 2 Corky Fenton. [address], [place], [place], [address] . tel: [phone] [facility], [place], [address], [facility] Spastcity secondary to a CVA (chief complaint) Body mass index [BMI] 36.0-36.9, adultHemipleg ia and hemiparesis following cerebral infarction affecting right dominant sideAphasia as late effect of cerebrovascul ar accident (CVA)Seizures History of depressionHis tory of hypertension 2 Corky Fenton. [address], [place], [place], [address] . tel: [phone] [facility], [place], [address], [facility] Spasticity secondary to a CVA (chief complaint) Body mass index [BMI] 36.0-36.9, adultHemipleg ia and hemiparesis following cerebral infarction affecting right dominant sideAphasia as late effect of cerebrovascul ar accident (CVA)History of hypertensionS eizuresHistor y of depression 2 Corky Fenton. [address], [place], [place], [address] . tel: [phone] [facility], [place], [address], [facility] Follow Up of Spasticity secondary to a CVA (chief complaint) Body mass index [BMI] 36.0-36.9, adultHemipleg ia and hemiparesis following cerebral infarction affecting right dominant sideHistory of depressionHis tory of [facility]S [facility] [place] 1 Corky Fenton. [address], [place], [place], [address] . tel: [phone] [facility], [place], [address], [facility] Follow Up of Spasticity secondary to a CVA. (chief complaint) Body mass index [BMI] 36.0-36.9, adultHemipleg ia and hemiparesis following cerebral infarction affecting right dominant sideHistory of depressionHis tory of hypertensionS [facility] [place] 1 Corky Fenton. [address], [place], [place], [address] . tel: [phone] [facility], [place], [facility], [facility] Follow Up of Spasticity secondary to a CVA (chief complaint) Body mass index [BMI] 36.0-36.9, adultHemipleg ia and hemiparesis following cerebral infarction affecting right dominant sideAphasia as late effect of cerebrovascul ar accident (CVA)History of depressionHis tory of hypertensionS [facility] [place] 1 Corky Fenton. [address], [place], [place], [address] . tel: [phone] [facility], [place], [facility], [facility] Follow Up of Spasticity secondary to a CVA (chief complaint) Body mass index [BMI] 36.0-36.9, adultHemipleg ia and hemiparesis following cerebral infarction affecting right dominant sideAphasia as late effect of cerebrovascul ar accident (CVA)History of depressionHis tory of hypertensionS [facility] [place] 0 Corky Fenton. [address], [place], [place], [address] . tel: [phone] [facility], [place], [facility], [facility] Follow Up of Spasticity secondary to a CVA (chief complaint) Body mass index (BMI) 36.0-36.9, adultHemipleg ia and hemiparesis following cerebral infarction affecting right dominant sideAphasia as late effect of cerebrovascul ar accident (CVA)History of depressionHis tory of hypertensionS [facility] [place] 0 Corky Fenton. [address], [place], [place], [address] . tel: [phone] Referring Provider: Jossy Fried, [address], [place], [address] . tel:[phone] [facility], [place], [address], [facility] Follow Up of spasticity secondary to a CVA (chief complaint) Body mass index (BMI) 36.0-36.9, adultHemipleg ia and hemiparesis following cerebral infarction affecting right dominant sideAphasia as late effect of cerebrovascul ar accident (CVA)History of depressionHis tory [facility] 0 Corky Fenton. [address], [place], [place], [address] . tel: [phone] Referring Provider: Jossy Fried, [address], [place], [address] . tel:[phone] [facility], [place], [address], [facility] Follow Up of spasticity secondary to a CVA (chief complaint) Body mass index (BMI) 36.0-36.9, adultHemipleg ia and hemiparesis following cerebral infarction affecting right dominant sideAphasia as late effect of cerebrovascul ar accident (CVA)History of depressionHis tory of hypertensionF[facility] 0 Corky Fenton. [address], [place], [place], [address] . tel:[phone] Referring Provider: Jossy Fried, [address], [place], [address] . tel:[phone] [facility], [place], [address], [facility] Follow Up of spasticity secondary to a CVA (chief complaint) Body mass index (BMI) 34.0-34.9, adultHemipleg ia and hemiparesis following cerebral infarction affecting right dominant sideAphasia as late effect of cerebrovascul ar accident (CVA)History of depressionHis tory of hypertensionS eizures 9 Corky Fenton. [address], [place], [place], [address] . tel: [phone] Referring Provider: Jossy Fried, [address], [place], [address] . tel:[phone] [facility], [place], [address], [facility] Follow Up of Spasticity secondary to a CVA (chief complaint) Body mass index (BMI) 34.0-34.9, adultHemipleg ia and hemiparesis following cerebral infarction affecting right dominant sideHistory of hypertensionA phasia as late effect of cerebrovascul ar accident (CVA)History of depression 9 Corky Fenton. [address], [place], [place], [address] . tel: [phone] Referring Provider: Jossy Fried [address], [place], [address] . tel:[phone] [facility], [place], [address], [facility] Follow Up of spasticity secondary to a stroke (chief complaint) Body mass index (BMI) 34.0-34.9, adultHemipleg ia and hemiparesis following cerebral infarction affecting right dominant sideAphasia as late effect of cerebrovascul ar accident (CVA)History of hypertensionH istory of depression 9 Corky Fenton. [address], [place], [place], [address] . tel: [phone] Referring Provider: Jossy Fried [address], [place], [address] . tel:[phone] [facility], [place], [address], [facility] Follow Up of spasticity secondary to a stroke (chief complaint) Body mass index (BMI) 34.0-34.9, adultHemipleg ia and hemiparesis following cerebral infarction affecting right dominant sideHistory of hypertensionH istory of depressionAph les as late effect of cerebrovascul ar accident (CVA) 9 Corky Fenton. [address], [place], [place], [address] . tel: [phone] Referring Provider: Jossy Fried, [address], [place], [address] . tel:[phone] [facility], [place], [address], [facility] Follow Up of Spasticity secondary to a stroke. (chief complaint) Body mass index (BMI) 34.0-34.9, adultHemipleg ia and hemiparesis following cerebral infarction affecting right dominant sideHistory of hypertensionH istory of hypercholeste rolemiaHistor y of depressionAph les as late effect of cerebrovascul ar accident (CVA) 8 Corky Fenton. [address], [place], [place], [address] . tel: [phone] Referring Provider: Jossy Fried, [address], [place], [address] . tel:[phone] [facility], [place], [address], [facility] Follow Up of Spasticity secondary to a stroke (chief complaint) Body mass index (BMI) 34.0-34.9, adultHemipleg ia and hemiparesis following cerebral infarction affecting right dominant sideAphasia as late effect of cerebrovascul ar accident (CVA)History of hypertensionH istory of hypercholeste rolemiaHistor y of depression 8 Corky Fenton. [address], [place], [place], [address] . tel: [phone] Referring Provider: Jossy Fried, [address], [place], [address] . tel:[phone] [facility], [place], [address], [facility] Follow Up of Spasticity secondary to a Stroke (chief complaint) Body mass index (BMI) 34.0-34.9, adultAphasia as late effect of cerebrovascul ar accident (CVA)Hemipleg ia and hemiparesis following cerebral infarction affecting right dominant side 8 Corky Fenton. [address], [place], [place], [address] . tel: [phone] Referring Provider: Jossy Fried, [address], [place], [address] . tel:[phone] [facility], [place], [address], [facility] Follow Up of Spasticity secondary to a stroke (chief complaint) Body mass index (BMI) 34.0-34.9, adultHemipleg ia and hemiparesis following cerebral infarction affecting right dominant side 8 Corky Fenton. [address], [place], [place], [address] . tel: [phone] Referring Provider: Jossy Fried, [address], [place], [address] . tel:[phone] [facility], [place], [address], [facility] Follow Up of spasticity secondary to a stroke (chief complaint) Body mass index (BMI) 34.0-34.9, adultHemipleg ia and hemiparesis following cerebral infarction affecting right dominant side 7 Corky Fenton. [address], [place], [place], [address] . tel: [phone] Referring Provider: Jossy Fried, [address], [place], [address] . tel:[phone] [facility], [place], [address], [facility] right spastic hemiparesis secondary to CVA (chief complaint) Body mass index (BMI) 34.0-34.9, adultLate effect of cerebrovascul ar accidentHemip legia and hemiparesis following cerebral infarction affecting right dominant side 7 Corky Fenton. [address], [place], [place], [address] . tel: [phone] [facility], [place], [address], [facility] Spastic right hemiparesis s/p CVA (chief complaint) Spastic hemiplegia affecting right dominant sideAphasia as late effect of cerebrovascul ar accident (CVA)Body mass index (BMI) 34.0-34.9, adult May- 7 Corky Fenton. [address], [place], [place], [address] . tel: [phone] [facility], [place], [address], [facility] Spastic right hemiparesis s/p stroke (chief complaint) Spastic hemiplegia affecting right dominant sideLate effect of cerebrovascul ar accident 6 Corky Fenton. [address], [place], [place], [address] . tel: [phone] [facility], [place], [address], [place] [facility] Spastic right hemiparesis s/p CVA (chief complaint) Spastic hemiplegia affecting right dominant sideLate effect of cerebrovascul ar accident 6 Corky Fenton. [address], [place], [place], [address] . tel: [phone] [facility], [place], [address], [place] [facility] right foot pain (chief complaint) Spastic hemiplegia affecting right dominant sideRight foot pain 6 Corky Fenton. [address], [place], [place], [address] . tel: [phone] [facility], [place], [address], [place] [facility] spastic right hemiparesis (chief complaint) Spastic hemiplegia affecting right dominant sideAphasia as late effect of cerebrovascul ar accident (CVA)Late effect of cerebrovascul ar accident 6 Corky Fenton. [address], [place], [place], [address] . tel: [phone] [facility], [place], [address], [facility] Spastic hemiplegia affecting right dominant sideLate effect of cerebrovascul ar accidentAphas ia as late effect of cerebrovascul ar accident (CVA)Apraxia of speech 6 Corky Fenton. [address], [place], [place], [address] . tel: [phone] [facility], [place], [address], [facility] Botox 600u RUE/RLE (chief complaint) Spastic hemiplegia affecting right dominant sideAphasia 5 Corky Fenton. [address], [place], [place], [address] . tel: [phone] OFFICE/OUTPA TIENT VISIT EST [facility], [place], [address], [facility] Follow Up of 11 weeks post botox - RUE/RLE (chief complaint) Spastic hemiplegiaLat e effects of cerebrovascul ar disease 5 Corky Fenton. [address], [place], [place], [address] . tel: [phone] Family History Family Member Type Diagnosis Age [...] party ID Authoriza tion(s) Medicare E2 OT [id number] [facility] E2 OT [id number] Social History Type Description Quantity Date Captured [...] hand at home. Spasticity secondary to CVA [place] is being seen in my office today, [...] with a reduction in the spasticity. Today, [place] is doing well she does admit to [...] on June 14 and was treated at [facility]. Follow Up of Spastic ity secondary to [...] speech. She continues to do daily stretching. [place] denies any medication changes. She denies any falls. She ambulates using a manual wheelchair. Her right arm is braced and she is currently wearing a walking boot on the right foot as needed after the sugery. She remains motivated. Spastic right hemiparesis s/p CV A [place] is seen today, accompanied by her , [...] They have not been attending therapy at [facility], they said they were never contacted. Her is going to reach to them again. Spastic right hemipa resis s/p stroke [place] is seen today, accompanied by her , [...]
--- OUTSIDE RECORDS SUMMARY | 2024-10-01 22:15 | XMS_ITS | Clinical Summary ---
Author Organization [facility] Address [address] [place] [address] Phone Care Team Providers Care Insurance Healthcare Representative Name Role Phone Myron Gardner MD Primary Care Provider [phone] Allergies Active Allergy Reactions Criticality Noted Date [...] ONE TABLET BY MOUTH IN THE APPLICATION CONSULTANT BEFORE BREAKFAST 0 Active metoprolol tartrate (LOPRESSOR) [...] patient's age to complete this topic Insurance [facility] MEDICARE Care Teams Insurance Healthcare Representative Relationship Specialty Start Date End Date Myron [place] [address] PCP - General Internal Medicine 01/21/20
[2024-10-01 22:23] LABS: Hematocrit 48.0 % (37.0-47.0); Hemoglobin 15.4 g/dL (12.0-15.0); Immature Granulocyte Percent A 0.4 % (0-0.5); Lymphocytes Absolute Auto 2.94 K/mm3 (0.9-3.2); Mean Corpuscular HGB Conc 32.1 g/dl (32-36); Mean Corpuscular Hemoglobin 29.5 pg (26-34); Mean Corpuscular Volume 92.0 fl (80-100); Nucleated Red Blood Cells Absolute Auto 0.000 K/mm3 (0.0-0.012); Nucleated Red Blood Cells Perc 0.0 % (0.0-0.2); Platelet Count Result 303 k/mm3 (150-375); Red Blood Count 5.22 M/mm3 (4.2-5.4); White Blood Count 13.6 K/mm3 (4.5-10.0)
--- NOTE | 2024-10-01 22:29 | ED_ITS ---
HPI - Altered Mental Status General Chief Complaint: Altered Mental Status Stated Complaint: Pale, AMS after walking out of restroom Source: patient, family and old records reviewed Mode of arrival: EMS Limitations: clinical condition History of Present Illness HPI narrative: Patient is a 74-year-old female who presents the ED via EMS with report of altered mental status. Patient lives with her daughter. Patient does have history of previous CVA with right-sided hemiparesis/expressive aphasia. Patient able to answer yes/no questions. Per previous records, patient was seen in the ED here on 09/26 for altered mental status. Diagnosed with a urinary tract infection, started on cefdinir. Patient and family opted to go home at that time. Per EMS report, patient was using the restroom tonight and became very pale afterwards. It was also reported patient was increasingly altered at that time. EMS was then contacted. She denies any pain currently, dizziness, lightheadedness, chest pain, abdominal pain, weakness of her left side. Patient's daughter now at bedside. Daughter reports patient was very pale and disoriented coming out of the bathroom tonight. She had difficulty following commands. Seemed to have weakness in her L side at that time, which is not normal for her. Daughter then contacted EMS. Daughter reports by the time of EMS's arrival, the L sided weakness had resolved. She reports patient seems to be at her baseline currently. Related Data Allergies Allergy/AdvReac Type Severity Reaction Status Date / Time codeine Allergy Unknown Verified 08/23/22 08:39 Penicillins Allergy Unknown Verified 08/23/22 08:39 Sulfa (Sulfonamide Allergy Unknown Verified 08/23/22 08:39 Antibiotics) Review of Systems 2 Review of Systems: All systems reviewed & are unremarkable except as noted in HPI. All systems reviewed & are unremarkable except as noted in HPI and below PMFSH Past Medical History Medical History History of hypothyroidism History of hypertension History of hyperlipidemia CVA (cerebral vascular accident) Expressive aphasia Exam 2 Narrative: GENERAL: Elderly but well appearing, well-nourished, non-toxic, in no acute distress. HEAD: Normocephalic, atraumatic. RESPIRATORY: Airway patent, respirations nonlabored. Clear to auscultation bilaterally, no rales, rhonchi, wheezing. CARDIOVASCULAR: Regular rate and rhythm without murmurs, rubs, or gallops. ABDOMINAL: Soft, no appreciable tenderness, nondistended. Normoactive BS. MUSCULOSKELETAL: Moves all extremities. No gross deformities. SKIN: Warm, dry, normal color. NEURO: A&O X1-2. Speech aphasic, able to answer some questions/ most yes and no questions. Cranial nerves II-XII grossly intact. No ataxic movements. R hemiparesis, some movement of RLE off bed. No appreciable weakness of LUE/LLE, strong manager student services strength on L. Sensation intact. PSYCHIATRIC: Appropriate mood and affect. Normal interaction. Course Vital Signs Vital signs: Vital Signs Temperature 98.5 F 10/01/24 21:17 Pulse Rate 91 10/01/24 21:17 Respiratory Rate 22 H 10/01/24 21:17 Blood Pressure 147/74 H 10/01/24 21:17 Pulse Oximetry 94 10/01/24 21:17 Oxygen Delivery Room Air 10/01/24 21:17 Temperature 98.5 F 10/01/24 21:17 Pulse Rate 104 H 10/02/24 00:00 Respiratory Rate 20 10/02/24 00:00 Blood Pressure 147/74 H 10/01/24 21:34 Pulse Oximetry 90 10/02/24 00:00 Oxygen Delivery Room Air 10/01/24 21:34 MDM - Altered Mental Status MDM Narrative Medical decision making narrative: Patient presented to ED with report of possible altered mental status, left- sided weakness earlier tonight which has since resolved. Patient with history of CVA with right-sided hemiparesis and expressive aphasia. Vital signs are stable upon arrival. Upon my evaluation, patient is in no acute distress. Seems to be neurologically intact at her baseline. She does have weakness of the right side but not complete paralysis. The left arm and leg do not appear to have any weakness. No appreciable cranial nerve abnormalities or facial asymmetry. Daughter now at bedside reports that patient does seem to be back at her normal baseline. CT brain was obtained and unremarkable. Chest x-ray clear. Cbc with blood cell count of 13.6. This does appear increased from previous records earlier this week. CMP with creatinine of 1.21. Slightly increased from previous records. Patient given fluids. Lactic acid minimally elevated to 2.2. Fluids are ongoing. UA here with trace leuks, 6-10 WBC. Sent for cx again today. Per records, preliminary report of urine culture from 09/26 did result positive for g negative bacilli. No sensitivity reports. CTA brain and carotids obtained and pending Discussed case with Dr. Coats, neurology, agreed with plan for admission. Will consult. Recommended MRI/EEG. Discussed case with Dr. Crooks, hospitalist, accepted patient for admission pending CTA results. Medical Records Attestation: I reviewed the patient's medical records. Lab Data Attestation: I reviewed the patient's lab results. 10/01/24 22:17 10/01/24 22:17 Labs: Lab Results 10/01/24 10/01/24 10/02/24 Range/Units 22:17 23:51 01:25 WBC 13.6 H (4.5-10.0) K/mm3 RBC 5.22 (4.2-5.4) M/mm3 Hgb 15.4 H (12.0-15.0) g/dL Hct 48.0 H (37.0-47.0) % MCV 92.0 (80-100) fl MCH 29.5 (26-34) pg MCHC 32.1 (32-36) g/dl RDW 15.0 H (11.5-14.5) % Plt Count 303 (150-375) k/mm3 MPV 10.5 H (7.4-10.4) fl Immature Gran % (Auto) 0.4 (0-0.5) % Neut % (Auto) 66.2 (45.5-73.1) % Lymph % (Auto) 21.6 (18.3-44.2) % [place] % (Auto) 7.3 (2.6-8.5) % Eos % (Auto) 3.7 (0-4.4) % Baso % (Auto) 0.8 (0.2-1.2) % Lymph # (Auto) 2.94 (0.9-3.2) K/mm3 [place] # (Auto) 1.0 H (0.1-0.6) K/mm3 Eos # (Auto) 0.5 H (0-0.3) K/mm3 Baso # (Auto) 0.1 (0.0-0.1) K/mm3 Abs Immat Gran (auto) 0.05 H (0.00-0.031) K/mm3 Absolute Neuts (auto) 9.0 H (1.3-6.7) K/mm3 Absolute Nucleated RBC 0.000 (0.0-0.012) K/mm3 Nucleated RBC % 0.0 (0.0-0.2) % PT 13.9 (11.1-14.7) Seconds INR 1.1 APTT 30.7 (22.3-36.8) Seconds Sodium 141 (137-145) mmol/L Potassium 4.0 (3.4-5.0) mmol/L Chloride 104 (98-107) mmol/L Carbon Dioxide 28 (22-30) mmol/L Anion Gap 9 (4-12) mmol/L BUN 22 H (7-17) mg/dL Creatinine 1.21 H (0.7-1.0) mg/dL Estim Creat Clear Calc Not Reportable Estimated GFR 43 L (59 - ) Glucose 108 (65-110) mg/dL Lactic Acid 2.2 H 1.3 (0.7-2.0) mmol/L Calcium 9.2 (8.4-10.2) mg/dL Total Bilirubin 0.6 (0.2-1.3) mg/dL AST 41 H (14-36) U/L ALT 32 (6-35) U/L Alkaline Phosphatase 105 (38-126) U/L Total Protein 8.3 H (6.3-8.2) g/dL Albumin 4.1 (3.5-5.1) g/dL Urine Color Yellow (Yellow) Urine Appearance Clear (Clear) Urine pH 6.5 (5.0-9.0) Ur Specific [place] 1.012 (1.001-1.035) Urine Protein Negative (Negative) mg/dL Urine Glucose (UA) Negative (Negative) mg/dL Urine Ketones Negative (Negative) mg/dL Ur Blood (Man) Negative (Negative) Urine Nitrate Negative (Negative) Urine Bilirubin Negative (Negative) Urine Urobilinogen 0.2 (<2.0) mg/dL Leukocyte Esterase Rfl Trace H (Negative) JUAN ANTONIO/UL Urine RBC 0-2 (0-2) /hpf Urine WBC 6-10 H (0-3) /hpf Ur Squamous Epith Cells None seen (Few) /hpf Urine Bacteria None seen /hpf Urine Casts 0-2 Imaging Data Attestation: I personally reviewed and interpreted this imaging study as follows: ECG Data EKG #1: Attestation: I personally reviewed and interpreted this ECG as follows: ECG completion date: 10/01/24 ECG completion time: 21:31 EKG Interpretation: normal rate (89), sinus rhythm and non-specific ST changes Discharge Plan Discharge Clinical Impression: Left-sided weakness, Disorientation, History of CVA (cerebrovascular accident) Patient Disposition: Still a Patient Condition: Stable Patient Language: Kittitian Prescriptions: No Action hydrocodone-acetaminophen 5-325 mg tablet 1 tablet PO Q6H PRN (Reason: pain) Qty: 10 0RF cefdinir 300 mg capsule 300 mg PO Q12H 5 Days Qty: 10 0RF Follow-up/Referrals: Harms,Myron Sharma M.D. [Primary Care Provider] -
[2024-10-01 22:33] LABS: Alanine Aminotransferase 32 U/L (6-35); Albumin Level 4.1 g/dL (3.5-5.1); Alkaline Phosphatase 105 U/L (38-126); Anion Gap 9 mmol/L (4-12); Aspartate Amino Transferase 41 U/L (14-36); Bilirubin,Total 0.6 mg/dL (0.2-1.3); Blood Urea Nitrogen 22 mg/dL (7-17); Calcium 9.2 mg/dL (8.4-10.2); Carbon Dioxide 28 mmol/L (22-30); Chloride 104 mmol/L (98-107); Estimated Glomerular Filt Rate 43; Glucose 108 mg/dL (65-110); Potassium 4.0 mmol/L (3.4-5.0); Sodium 141 mmol/L (137-145); Total Protein 8.3 g/dL (6.3-8.2)
[2024-10-01 22:35] LABS: INR 1.1; Partial Thromboplastin Time 30.7 Seconds (22.3-36.8); Prothrombin Time 13.9 Seconds (11.1-14.7)
[2024-10-01] MEDS: SODIUM CHLORIDE 0.9% IV 1,000 ML 999 ML IV CONT (23:11)
[2024-10-01] MEDS: ASPIRIN 81 MG CHEWABLE TABLET 324 MG PO (23:47)
[2024-10-02] VITALS (13 sets, daily range): BP systolic 100–134; BP diastolic 54–74; PULSE 87–105; RESP 12–20; TEMP 36.3–37.1; O2SAT 90–92; BMI 37.5
[2024-10-02 00:01] LABS: Add Urine Microscopic? YES; Appearance Urine Clear (Clear); Glucose Urine UA Negative (Negative); Leukocyte Esterase Ur Trace LEU/UL (Negative); Nitrate Urine Negative (Negative); Non Pathogenic Casts 0-2; Specific Grav Ur 1.012 (1.001-1.035)
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
--- NOTE | 2024-10-02 05:01 | ADMGEN ---
This patient, Bree Naidu, was admitted to Medical Room 253-01. Patient/family oriented to hospital policies and general routines including ID bracelet, bed and alarms, visiting hours, pain management, procedures, bathroom and other care routines, personal items, smoking policy, room service/diet, and visiting hours. Information on how to activate the Rapid Response Team has been discussed. Patient/Family are encouraged to report perceived risks to care and to ask questions if they do not understand what they are told or what they should do.
[2024-10-02] MEDS: cefTRIAXone 1 GM in SODIUM CHLORIDE 0.9% IV 50 ML 100 ML IVPB (06:10)
[2024-10-02] MEDS: LEVOTHYROXINE SODIUM 150 MCG TABLET PO (06:11)
[2024-10-02 06:23] LABS: Hematocrit 44.5 % (37.0-47.0); Hemoglobin 14.4 g/dL (12.0-15.0); Immature Granulocyte Percent A 0.4 % (0-0.5); Lymphocytes Absolute Auto 2.97 K/mm3 (0.9-3.2); Mean Corpuscular HGB Conc 32.4 g/dl (32-36); Mean Corpuscular Hemoglobin 29.7 pg (26-34); Mean Corpuscular Volume 91.8 fl (80-100); Nucleated Red Blood Cells Absolute Auto 0.000 K/mm3 (0.0-0.012); Nucleated Red Blood Cells Perc 0.0 % (0.0-0.2); Platelet Count Result 278 k/mm3 (150-375); Red Blood Count 4.85 M/mm3 (4.2-5.4); White Blood Count 12.6 K/mm3 (4.5-10.0)
--- NOTE | 2024-10-02 06:33 | P.HP_ITS ---
H&P: HPI History of Present Illness Date/Time: 10/02/24 06:33 Chief Complaint: Altered mental status Narrative: 74-year-old female presents to [facility] ER on 10/01/2024 via EMS with reports of altered mental status. 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 S he can answer yes or no questions. Also history of hypertension hyperlipidemia and hypothyroidism, and seizures. Patient presented to [facility] on 09/28/2024 and was diagnosed with UTI. She was sent home on cefdinir. Urine culture from 09/28 preliminary results showing Gram-negative bacilli but no sensitivities at. The patient was about her usual when the patient came out of the restroom and was looking very pale. She was unable to keep her eyes open or move her body and the daughter is present and provides history of the patient lives with reports possibly right-sided mouth droop being the patient cannot open her mouth. The symptoms slowly resolved and by the time she presented to the ER the patient was at her baseline. Blood pressure on arrival 147/74. WBC 13.6, serum creatinine 1.21, lactic acid 2.2 improving to 1.3 status post fluids. Urinalysis demonstrating trace leukocyte esterase and 6-10 wbc's. Blood culture urine culture drawn. Chest x- ray without acute process. Head CT without acute process. CTA head and neck showing calcified plaques with 50% stenosis of distal internal carotid arteries bilaterally, 20% stenosis of the basilar artery, previous left-sided craniotomy with encephalomalacia of the left cerebral hemisphere. 30% stenosis of proximal left subclavian artery, 50% stenosis of distal right common carotid artery, mixed density plaque with 70% stenosis of the origin of the right internal carotid artery, 40% stenosis of proximal left internal carotid artery. Neurology consultation conducted from ER and recommending admission with MRI and EEG. Review of Systems Review of Systems: All systems reviewed & are unremarkable except as noted in HPI and below (Subjective/HPI) [facility] Past Medical History Medical History History of hypothyroidism History of hypertension History of hyperlipidemia CVA (cerebral vascular accident) Expressive aphasia Social History Social History Smoking status: Never smoker Alcohol intake: never Substance use: never Substance use type: does not use Lack of Transportation: No Lack of Food: Never True Current Housing: I Have Housing Concerned About Future Housing: No Difficulty Paying Gas/Electric Bills: No Difficulty Paying for Meds: No Currently Unemployed: No Education: Trade/Vocational Certificate Difficulty w/ Childcare or Family Care: No Spiritual care concerns: No Meds Home Medications and Allergies Home Medications ?Medication ?Instructions ?Recorded ?Confirmed ?Type cefdinir 300 mg capsule 300 mg PO Q12H 5 days #10 caps 09/28/24 10/02/24 Rx albuterol sulfate 2.5 mg/3 mL 2.5 mg inhalation Q6H PRN 10/02/24 10/02/24 History (0.083 %) solution for nebulization shortness of breath or wheezing albuterol sulfate 90 mcg/actuation 2 puff inhalation Q6H PRN 10/02/24 10/02/24 History aerosol inhaler shortness of breath or wheezing atorvastatin 40 mg tablet 40 mg PO QPM 10/02/24 10/02/24 History clonazepam 0.5 mg tablet 0.5 mg PO Q12H PRN anxiety 10/02/24 10/02/24 History duloxetine 20 mg capsule,delayed 20 mg PO BID 10/02/24 10/02/24 History release ezetimibe 10 mg tablet 10 mg PO DAILY 10/02/24 10/02/24 History levetiracetam 500 mg tablet 500 mg PO Q12H 10/02/24 10/02/24 History levothyroxine 200 mcg tablet 150 mcg PO DAILY@0630 10/02/24 10/02/24 History (Synthroid) metoprolol tartrate 25 mg tablet 12.5 mg PO Q12H 10/02/24 10/02/24 History polysorbate 80-glycerin 1 %-1 % 1 drp ophthalmic (eye) .Q4HR PRN 10/02/24 10/02/24 History eye drops dry eyes pregabalin 25 mg capsule 25 mg PO Q12H 10/02/24 10/02/24 History tizanidine 2 mg tablet 2 mg PO QHS 10/02/24 10/02/24 History triamterene 37.5 1 tablet PO DAILY 10/02/24 10/02/24 History mg-hydrochlorothiazide 25 mg tablet Allergies Allergy/AdvReac Type Severity Reaction Status Date / Time codeine Allergy Unknown Verified 08/23/22 08:39 Penicillins Allergy Unknown Verified 08/23/22 08:39 Sulfa (Sulfonamide Allergy Unknown Verified 08/23/22 08:39 Antibiotics) Vital Signs Vital Signs - 24 hr 10/01/24 21:17 10/01/24 21:27 10/01/24 21:30 Temperature 98.5 F Pulse Rate 91 92 99 Respiratory Rate 22 H 21 H Blood Pressure 147/74 H Pulse Oximetry 94 Oxygen Delivery Room Air 10/01/24 21:30 10/01/24 21:34 10/01/24 21:34 Temperature Pulse Rate 91 89 Respiratory Rate 22 H 17 Blood Pressure 147/74 H Pulse Oximetry 93 91 Oxygen Delivery Room Air 10/01/24 21:45 10/01/24 22:02 10/01/24 22:15 Temperature Pulse Rate 94 98 94 Respiratory Rate 20 20 16 Blood Pressure Pulse Oximetry Oxygen Delivery 10/01/24 22:30 10/01/24 22:45 10/01/24 23:01 Temperature Pulse Rate 95 100 100 Respiratory Rate 16 24 H 21 H Blood Pressure Pulse Oximetry Oxygen Delivery 10/01/24 23:15 10/01/24 23:30 10/01/24 23:46 Temperature Pulse Rate 100 102 H Respiratory Rate 15 25 H Blood Pressure Pulse Oximetry 92 Oxygen Delivery 10/02/24 00:00 10/02/24 04:25 10/02/24 05:10 Temperature 97.3 F L Pulse Rate 104 H 100 104 H Respiratory Rate 20 20 Blood Pressure 131/74 Pulse Oximetry 90 90 Oxygen Delivery Exam Const: General: comfortable and no acute distress Other: Aphasic HENMT: Mouth: Yes moist mucous membranes Eyes: Pupils: Equal, round and reactive pupils present Neck: Neck: supple Resp: Effort & Inspection: normal respiratory effort Auscultation: clear to auscultation bilaterally Cardio: Rate: regular rate Rhythm: regular rhythm GI: Inspection: non-distended GI Palp: Yes Soft to palpation Neuro: Other: Gait deferred. 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 Tongue midline, uvula midline, facial muscles symmetric Left extremities sensation intact Extrem: General: no edema Other: 1 cm wide abrasion right lower extremity 5th MTP H&P: Results Labs Labs: Short CBC 10/01/24 10/02/24 Range/Units 22:17 05:35 WBC 13.6 H 12.6 H (4.5-10.0) K/mm3 Hgb 15.4 H 14.4 (12.0-15.0) g/dL Hct 48.0 H 44.5 (37.0-47.0) % Plt Count 303 278 (150-375) k/mm3 BMP 10/01/24 22:17 Sodium 141 Potassium 4.0 Chloride 104 Carbon Dioxide 28 BUN 22 H Creatinine 1.21 H Glucose 108 Calcium 9.2 Liver Function 10/01/24 Range/Units 22:17 Total Bilirubin 0.6 (0.2-1.3) mg/dL AST 41 H (14-36) U/L ALT 32 (6-35) U/L Alkaline Phosphatase 105 (38-126) U/L Albumin 4.1 (3.5-5.1) g/dL Urine 10/01/24 Range/Units 23:51 Urine Color Yellow (Yellow) Urine Appearance Clear (Clear) Urine pH 6.5 (5.0-9.0) Ur Specific [place] 1.012 (1.001-1.035) Urine Protein Negative (Negative) mg/dL Urine Glucose (UA) Negative (Negative) mg/dL Assessment and Plan Assessment and plan (1) Disorientation: Code(s): R41.0 - Disorientation, unspecified Status: Acute Plan Pending MRI and EEG. She received fluid resuscitation, aspirin 324 mg p.o. x1. Continue [employer] atorvastatin 40 mg. Consider increasing. Neurology consultation pending. Continue with aspirin 81 mg p.o. q.a.m.. Follow-up urine and blood cultures. Ceftriaxone started. Follow WBC. Patient wishes to be full code. SCDs.
[2024-10-02 06:42] LABS: Anion Gap 7 mmol/L (4-12); Blood Urea Nitrogen 23 mg/dL (7-17); Calcium 8.6 mg/dL (8.4-10.2); Carbon Dioxide 25 mmol/L (22-30); Chloride 104 mmol/L (98-107); Estimated CRCL calculation 49 ml/min; Estimated Glomerular Filt Rate 52; Glucose 97 mg/dL (65-110); Magnesium 1.9 mg/dL (1.6-2.3); Potassium 3.8 mmol/L (3.4-5.0); Sodium 136 mmol/L (137-145)
[2024-10-02] MEDS: METOPROLOL TARTRATE 12.5 MG TABLET PO ×2 (08:19→20:42)
[2024-10-02] MEDS: ASPIRIN 81 MG ENTERIC TABLET PO (08:19)
[2024-10-02] MEDS: PREGABALIN (*CRX) 25 MG CAPSULE PO (08:20)
--- NOTE | 2024-10-02 10:28 | P.NEURO_ITS ---
Neurology EEG Report General Information Date of Study: 10/02/24 TEST Electroencephalogram DIAGNOSIS left CVA and seizure disorder ,history of craniotomy on the left side CONDITION OF RECORDING bedside recording EEG NUMBER [id number] CLINICAL HISTORY Patient was using the restroom at night before and became pale and disoriented. Patient was unable to follow any other commands. She also noted to have left- sided weakness. However the weakness resolved by the time the EMS arrived. Has aphasia but she can answer yes or no questions resulting from the previous stroke on the left side of the head. The last known seizure was 8 years ago however she has episodes of becoming very lethargic. EEG DESCRIPTION The background activity consists of predominantly theta activity. Mixed frequency activity is noted in the posterior head region. A well-defined alpha rhythm was not seen. Breach rhythm was noted over the left hemisphere particularly over the mid and posterior temporal area. Higher amplitude theta activity and at times sharp transients were noted over the left posterior temporal area. Patient did not progress to stage 2 sleep. Hyperventilation or photic stimulation are not performed. IMPRESSION This is an abnormal EEG obtained during awake and drowsy states due to presence of breach rhythm and focal slow waves seen nearly continuously over the left hemisphere particularly in the temporal areas. Occasional sharp transients are see in the left posterior temporal area. These findings may be seen due to previous craniotomy defect leading to higher amplitude over the left than right hemisphere but may also be seen due to underlying structural lesion. Sharp transients are considered nonspecific focal inter ictal abnormality. No electrographic seizures were seen.
--- NOTE | 2024-10-02 12:54 | P.PNIM_ITS ---
Progress Note: A&P Assessment and Plan (1) Disorientation: Code(s): R41.0 - Disorientation, unspecified Status: Acute Plan MRI No acute intracranial process. EEG findings may be seen due to previous craniotomy defect leading to higher amplitude over the left than right hemisphere but may also be seen due to underlying structural lesion. Sharp transients are considered nonspecific focal inter ictal abnormality. No electrographic seizures were seen.. She received fluid resuscitation, aspirin 324 mg p.o. x1. Continue RECONCILIATION ANALYST atorvastatin 40 mg. Consider increasing. Neurology consultation pending. Continue with aspirin 81 mg p.o. q.a.m.. 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 Ceftriaxone started. Follow WBC. Patient wishes to be full code. SCDs. Subjective Date/time seen: 10/02/24 12:54 Interval history: per HPi: 74-year-old female presents to [facility] ER on 10/01/2024 via EMS with reports of altered mental status. 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 She can answer yes or no questions. Also history of hypertension hyperlipidemia and hypothyroidism, and seizures. Patient presented to [facility] on 09/28/2024 and was diagnosed with UTI. She was sent home on cefdinir. Urine culture from 09/28 preliminary results showing Gram-negative bacilli but no sensitivities at. The patient was about her usual when the patient came out of the restroom and was looking very pale. She was unable to keep her eyes open or move her body and the daughter is present and provides history of the patient lives with reports possibly right-sided mouth droop being the patient cannot open her mouth. The symptoms slowly resolved and by the time she presented to the ER the patient was at her baseline. Blood pressure on arrival 147/74. WBC 13.6, serum creatinine 1.21, lactic acid 2.2 improving to 1.3 status post fluids. Urinalysis demonstrating trace leuk ocyte esterase and 6-10 wbc's. Blood culture urine culture drawn. Chest x-ray without acute process. Head CT without acute process. CTA head and neck showing calcified plaques with 50% stenosis of distal internal carotid arteries bilaterally, 20% stenosis of the basilar artery, previous left-sided craniotomy with encephalomalacia of the left cerebral hemisphere. 30% stenosis of proximal left subclavian artery, 50% stenosis of distal right common carotid artery, mixed density plaque with 70% stenosis of the origin of the right internal carotid artery, 40% stenosis of proximal left internal carotid artery. Neurology consultation conducted from ER and recommending admission with MRI and EEG. 10/02/24 Patient was seen and examined at bedside. she is doing fine. was getting EEG. Discussed with her daughter at bedside, she is almost back to baseline. EEG :findings may be seen due to previous craniotomy defect leading to higher amplitude over the left than right hemisphere but may also be seen due to underlying structural lesion. Sharp transients are considered nonspecific focal inter ictal abnormality. No electrographic seizures were seen. MRI No acute intracranial process. Neurology team on board. keppra increases to 750 BID. added plavix. continue Aspirin. Review of Systems 2 Review of Systems: All systems reviewed & are unremarkable except as noted in HPI and below (Subjective/HPI) Exam Const: General: comfortable and no acute distress Other: Aphasic HENMT: Mouth: Yes moist mucous membranes Eyes: Pupils: Equal, round and reactive pupils present Neck: Neck: supple Resp: Effort & Inspection: normal respiratory effort Auscultation: clear to auscultation bilaterally Cardio: Rate: regular rate Rhythm: regular rhythm GI: Inspection: non-distended Neuro: Cranial nerves: Yes Equal, round and reactive pupils present Other: Gait deferred. 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 Tongue midline, uvula midline, facial muscles symmetric Left extremities sensation intact Extrem: General: no edema Other: 1 cm wide abrasion right lower extremity 5th MTP Objective Data Vital Signs Vital Signs: Vital Signs - 24 hr 10/01/24 21:17 10/01/24 21:27 10/01/24 21:30 Temperature 98.5 F Pulse Rate 91 92 99 Respiratory Rate 22 H 21 H Blood Pressure 147/74 H Pulse Oximetry 94 Oxygen Delivery Room Air 10/01/24 21:30 10/01/24 21:34 10/01/24 21:34 Temperature Pulse Rate 91 89 Respiratory Rate 22 H 17 Blood Pressure 147/74 H Pulse Oximetry 93 91 Oxygen Delivery Room Air 10/01/24 21:45 10/01/24 22:02 10/01/24 22:15 Temperature Pulse Rate 94 98 94 Respiratory Rate 20 20 16 Blood Pressure Pulse Oximetry Oxygen Delivery 10/01/24 22:30 10/01/24 22:45 10/01/24 23:01 Temperature Pulse Rate 95 100 100 Respiratory Rate 16 24 H 21 H Blood Pressure Pulse Oximetry Oxygen Delivery 10/01/24 23:15 10/01/24 23:30 10/01/24 23:46 Temperature Pulse Rate 100 102 H Respiratory Rate 15 25 H Blood Pressure Pulse Oximetry 92 Oxygen Delivery 10/02/24 00:00 10/02/24 04:25 10/02/24 05:10 Temperature 97.3 F L Pulse Rate 104 H 100 104 H Respiratory Rate 20 20 Blood Pressure 131/74 Pulse Oximetry 90 90 Oxygen Delivery 10/02/24 08:00 10/02/24 08:19 10/02/24 12:00 Temperature Pulse Rate 105 H 87 Respiratory Rate 12 Blood Pressure 100/54 L Pulse Oximetry 92 Oxygen Delivery Room Air Intake/Output Intake/Output: Intake & Output 09/29/24 09/30/24 10/01/24 10/02/24 23:59 23:59 23:59 23:59 Intake Total 1170 Output Total 0 Balance 1170 Meds/Results Medications: Active Medications Generic Name Dose Route Start Last Admin Trade Name Freq PRN Reason Stop Dose Admin Albuterol 2 puff 10/02/24 04:52 Albuterol Sulfate (*Sp) Aerosol 1 Puff INHALATION Q6HRT PRN shortness of breath or wheezing Artificial Tears 1 drop 10/02/24 05:30 Artificial Tears Ophth Soln 15 Ml Bottle EACH EYE QID PRN Dry Eye(s) Aspirin 81 mg 10/02/24 09:00 10/02/24 08:19 Aspirin 81 Mg Enteric Tablet PO 81 mg QAM JIGAR Administration Atorvastatin Calcium 40 mg 10/02/24 21:00 Atorvastatin 40 Mg Tablet PO QHS JIGAR Clonazepam 0.5 mg 10/02/24 04:53 Clonazepam (*Crx) 0.5 Mg Tablet PO Q12H PRN anxiety Clopidogrel Bisulfate 75 mg 10/03/24 09:00 Clopidogrel Bisulfate 75 Mg Tablet PO QAM JIGAR Duloxetine HCl 20 mg 10/02/24 09:00 10/02/24 08:19 Duloxetine Hcl 20 Mg Capsule. PO 20 mg Q12HR JIGAR Administration Ceftriaxone Sodium 1 gm/ 50 mls @ 100 mls/hr 10/02/24 05:00 10/02/24 06:39 Sodium Chloride IVPB Infused Q24H JIGAR Infusion Levetiracetam 750 mg 10/02/24 21:00 Levetiracetam 250 Mg Tablet PO Q12HR JIGAR Levothyroxine Sodium 150 mcg 10/02/24 06:30 10/02/24 06:11 Levothyroxine Sodium 150 Mcg Tablet PO 150 mcg DAILY@0630 JIGAR Administration Metoprolol Tartrate 12.5 mg 10/02/24 09:00 10/02/24 08:19 Metoprolol Tartrate 12.5 Mg Tablet PO 12.5 mg Q12HR JIGAR Administration Pregabalin 25 mg 10/02/24 09:00 10/02/24 08:20 Pregabalin (*Crx) 25 Mg Capsule PO 25 mg QAM JIGAR Administration Pregabalin 50 mg 10/02/24 21:00 Pregabalin (*Crx) 25 Mg Capsule PO QHS JIGAR Tizanidine HCl 4 mg 10/02/24 21:00 Tizanidine Hcl 2 Mg Tablet PO QHS [facility] Radiology Results: ITS Impressions Head CT 10/01/24 22:10 IMPRESSION: No acute intracranial process. Chest X-Ray 10/01/24 22:15 IMPRESSION: No acute cardiopulmonary process. Head/Neck CTA 10/02/24 06:37 IMPRESSION: Soft, noncalcified plaque is present within the bilateral internal carotid arteries, as detailed above. Percent stenosis per NASCET criteria is 70% on the right and close to 40% on the left. Bilateral vertebral arteries are widely patent. Densely calcified bilateral intracranial internal carotid arteries, as detailed above. Brain MRI 10/02/24 12:00 IMPRESSION: 1. No acute intracranial process. 2. Large chronic infarct involving much of the left middle cerebral artery vascular distribution with change of prior left frontoparietal craniotomy with expected secondary mild pachymeningeal enhancement and with chronic region of heterotopic ossification within the region of encephalomalacia. 3. Additional small old right frontal lobe infarct. Labs Labs: Laboratory Results - last 24 hr 10/01/24 10/01/24 10/02/24 22:17 23:51 01:25 WBC 13.6 H RBC 5.22 Hgb 15.4 H Hct 48.0 H MCV 92.0 MCH 29.5 MCHC 32.1 RDW 15.0 H Plt Count 303 MPV 10.5 H Immature Gran % (Auto) 0.4 Neut % (Auto) 66.2 Lymph % (Auto) 21.6 Wallace % (Auto) 7.3 Eos % (Auto) 3.7 Baso % (Auto) 0.8 Lymph # (Auto) 2.94 Wallace # (Auto) 1.0 H Eos # (Auto) 0.5 H Baso # (Auto) 0.1 Abs Immat Gran (auto) 0.05 H Absolute Neuts (auto) 9.0 H Absolute Nucleated RBC 0.000 Nucleated RBC % 0.0 PT 13.9 INR 1.1 APTT 30.7 Sodium 141 Potassium 4.0 Chloride 104 Carbon Dioxide 28 Anion Gap 9 BUN 22 H Creatinine 1.21 H Estim Creat Clear Calc Not Reportable Estimated GFR 43 L Glucose 108 Lactic Acid 2.2 H 1.3 Calcium 9.2 Magnesium Total Bilirubin 0.6 AST 41 H ALT 32 Alkaline Phosphatase 105 Total Protein 8.3 H Albumin 4.1 Urine Color Yellow Urine Appearance Clear Urine pH 6.5 Ur Specific [place] 1.012 Urine Protein Negative Urine Glucose (UA) Negative Urine Ketones Negative Ur Blood (Man) Negative Urine Nitrate Negative Urine Bilirubin Negative Urine Urobilinogen 0.2 Leukocyte Esterase Rfl Trace H Urine RBC 0-2 Urine WBC 6-10 H Ur Squamous Epith Cells None seen Urine Bacteria None seen Urine Casts 0-2 10/02/24 05:35 WBC 12.6 H RBC 4.85 Hgb 14.4 Hct 44.5 MCV 91.8 MCH 29.7 MCHC 32.4 RDW 14.9 H Plt Count 278 MPV 11.0 H Immature Gran % (Auto) 0.4 Neut % (Auto) 64.2 Lymph % (Auto) 23.6 Wallace % (Auto) 7.8 Eos % (Auto) 3.3 Baso % (Auto) 0.7 Lymph # (Auto) 2.97 Wallace # (Auto) 1.0 H Eos # (Auto) 0.4 H Baso # (Auto) 0.1 Abs Immat Gran (auto) 0.05 H Absolute Neuts (auto) 8.1 H Absolute Nucleated RBC 0.000 Nucleated RBC % 0.0 PT INR APTT Sodium 136 L Potassium 3.8 Chloride 104 Carbon Dioxide 25 Anion Gap 7 BUN 23 H Creatinine 1.03 H Estim Creat Clear Calc 49 Estimated GFR 52 L Glucose 97 Lactic Acid Calcium 8.6 Magnesium 1.9 Total Bilirubin AST ALT Alkaline Phosphatase Total Protein Albumin Urine Color Urine Appearance Urine pH Ur Specific [place] Urine Protein Urine Glucose (UA) Urine Ketones Ur Blood (Man) Urine Nitrate Urine Bilirubin Urine Urobilinogen Leukocyte Esterase Rfl Urine RBC Urine WBC Ur Squamous Epith Cells Urine Bacteria Urine Casts
--- NOTE | 2024-10-02 18:55 | P.CONNEU_ITS ---
Assessment and Plan Assessment and plan (1) Transient ischemic attack (TIA): Code(s): G45.9 - Transient cerebral ischemic attack, unspecified Status: Acute Assessment and Plan: the patient most likely had a transient ischemic attack in the right hemisphere leading to left-sided weakness which subsequently resolved. She has 70% narrowing of the right internal carotid artery. She has had a surgery for left carotid and endarterectomy which led to complications and she had a left craniotomy and she is left with a dense left right hemiplegia and expressive aphasia. (2) Left-sided cerebrovascular accident (CVA): Code(s): I63.9 - Cerebral infarction, unspecified Status: Acute (3) Seizure disorder: Code(s): G40.909 - Epilepsy, unspecified, not intractable, without status epilepticus Status: Acute Assessment and Plan: Patient has been on Keppra 500 mg twice a day. Of suggest increase that to 750 mg twice a day. This is based upon the fact that although transient ischemic attack is most likely the distinction from partial complex seizure with postictal paralysis subsequent resolution is in the differential diagnosis. (4) Stenosis of right internal carotid artery: Code(s): I65.21 - Occlusion and stenosis of right carotid artery Status: Acute Assessment and Plan: Patient noted to have 70% narrowing of the right internal carotid artery. There is 50% narrowing of the left internal carotid artery. Plan I would suggest at Plavix 75 mg a day. Patient is already on atorvastatin 40 mg a day. We should follow up her lipid profile keep the LDL under 65. In addition she was found to have urinary tract infection for which she is being treated. Consult date: 10/02/24 HPI: Bree Naidu is a 74 year old female With history of left side craniotomy and a right hemiplegia and left carotid endarterectomy. She was seen in the emergency room on 09/26 and diagnosed to have urinary tract infection and in fact it has grown E coli. She is being treated with antibiotics for in the meanwhile, she presented to the emergency room yesterday with altered mental status. The patient lives with the daughter. Has expressive aphasia but she can suggest or no answers. According to the records after the initial evaluation on 09/26/2024 the family opted to go home with antibiotics for urinary tract infection. On this particular admission the patient apparently became very pale and disoriented coming out of the bathroom. She appeared to have weakness on the left side of the body which is not normal for her since he has pre-existing right hemiplegia. In the emergency room a CT scan of brain was performed did not show any abnormality. WBC count was high at 13.6. Creatinine 1.21. Lactic acid was mildly elevated 2.2. She was treated with IV fluids and antibiotics. A CT angiogram of the head and neck was performed which has shown 70% narrowing in the right internal carotid artery and approximately 50% narrowing the left internal carotid artery. CT scan did point out left-sided craniotomy. Has been on Keppra 1 g a day given as 500 mg twice a day. An MRI of brain was performed which shows large infarct in the left middle cerebral artery territory and old right frontal infarct. No evidence for new stroke. Review of Systems 2 Review of Systems: All systems reviewed & are unremarkable except as noted in HPI and below PMFSH Past Medical History Medical History (Updated 10/02/24 @ 19:03 by Katheryn Goss MD) Stenosis of right internal carotid artery Seizure disorder Left-sided cerebrovascular accident (CVA) Transient ischemic attack (TIA) History of hypothyroidism History of hypertension History of hyperlipidemia CVA (cerebral vascular accident) Expressive aphasia Social History Social History Smoking status: Never smoker Alcohol intake: never Substance use: never Substance use type: does not use Lack of Transportation: No Lack of Food: Never True Current Housing: I Have Housing Concerned About Future Housing: No Difficulty Paying Gas/Electric Bills: No Difficulty Paying for Meds: No Currently Unemployed: No Education: Trade/Vocational Certificate Difficulty w/ Childcare or Family Care: No Spiritual care concerns: No Meds Home Medications and Allergies Home Medications ?Medication ?Instructions ?Recorded ?Confirmed ?Type cefdinir 300 mg capsule 300 mg PO Q12H 5 days #10 caps 09/28/24 10/02/24 Rx albuterol sulfate 2.5 mg/3 mL 2.5 mg inhalation Q6H PRN 10/02/24 10/02/24 History (0.083 %) solution for nebulization shortness of breath or wheezing albuterol sulfate 90 mcg/actuation 2 puff inhalation Q6H PRN 10/02/24 10/02/24 History aerosol inhaler shortness of breath or wheezing atorvastatin 40 mg tablet 40 mg PO QPM 10/02/24 10/02/24 History clonazepam 0.5 mg tablet 0.5 mg PO Q12H PRN anxiety 10/02/24 10/02/24 History duloxetine 20 mg capsule,delayed 20 mg PO BID 10/02/24 10/02/24 History release ezetimibe 10 mg tablet 10 mg PO DAILY 10/02/24 10/02/24 History levetiracetam 500 mg tablet 500 mg PO Q12H 10/02/24 10/02/24 History levothyroxine 200 mcg tablet 150 mcg PO DAILY@0630 10/02/24 10/02/24 History (Synthroid) metoprolol tartrate 25 mg tablet 12.5 mg PO Q12H 10/02/24 10/02/24 History polysorbate 80-glycerin 1 %-1 % 1 drp ophthalmic (eye) .Q4HR PRN 10/02/24 10/02/24 History eye drops dry eyes pregabalin 25 mg capsule 25 mg PO Q12H 10/02/24 10/02/24 History tizanidine 2 mg tablet 2 mg PO QHS 10/02/24 10/02/24 History triamterene 37.5 1 tablet PO DAILY 10/02/24 10/02/24 History mg-hydrochlorothiazide 25 mg tablet Allergies Allergy/AdvReac Type Severity Reaction Status Date / Time codeine Allergy Unknown Verified 08/23/22 08:39 Penicillins Allergy Unknown Verified 08/23/22 08:39 Sulfa (Sulfonamide Allergy Unknown Verified 08/23/22 08:39 Antibiotics) Vital Signs Vital Signs - 24 hr 10/01/24 21:17 10/01/24 21:27 10/01/24 21:30 Temperature 98.5 F Pulse Rate 91 92 99 Respiratory Rate 22 H 21 H Blood Pressure 147/74 H Pulse Oximetry 94 Oxygen Delivery Room Air 10/01/24 21:30 10/01/24 21:34 10/01/24 21:34 Temperature Pulse Rate 91 89 Respiratory Rate 22 H 17 Blood Pressure 147/74 H Pulse Oximetry 93 91 Oxygen Delivery Room Air 10/01/24 21:45 10/01/24 22:02 10/01/24 22:15 Temperature Pulse Rate 94 98 94 Respiratory Rate 20 20 16 Blood Pressure Pulse Oximetry Oxygen Delivery 10/01/24 22:30 10/01/24 22:45 10/01/24 23:01 Temperature Pulse Rate 95 100 100 Respiratory Rate 16 24 H 21 H Blood Pressure Pulse Oximetry Oxygen Delivery 10/01/24 23:15 10/01/24 23:30 10/01/24 23:46 Temperature Pulse Rate 100 102 H Respiratory Rate 15 25 H Blood Pressure Pulse Oximetry 92 Oxygen Delivery 10/02/24 00:00 10/02/24 04:25 10/02/24 05:10 Temperature 97.3 F L Pulse Rate 104 H 100 104 H Respiratory Rate 20 20 Blood Pressure 131/74 Pulse Oximetry 90 90 Oxygen Delivery 10/02/24 08:00 10/02/24 08:00 10/02/24 08:19 Temperature Pulse Rate 104 H 105 H Respiratory Rate Blood Pressure Pulse Oximetry Oxygen Delivery Room Air 10/02/24 12:00 10/02/24 12:00 10/02/24 13:34 Temperature Pulse Rate 87 87 Respiratory Rate 12 Blood Pressure 100/54 L Pulse Oximetry 92 91 Oxygen Delivery Room Air 10/02/24 15:51 Temperature Pulse Rate 88 Respiratory Rate 16 Blood Pressure 122/57 L Pulse Oximetry 92 Oxygen Delivery Exam 2 Narrative: Patient fully conscious alert. No nuchal rigidity. No evidence of external head trauma. no carotid bruit. The patient does seem to cooperative. She has a significant weakness in right upper and lower limb. Weakness noted in the left upper and lower limb at this time. Deep tendon reflexes did not show any significant abnormalities. No involuntary movements are seen. Results Labs 10/02/24 05:35 10/02/24 05:35 Labs: Short CBC 10/01/24 10/02/24 Range/Units 22:17 05:35 WBC 13.6 H 12.6 H (4.5-10.0) K/mm3 Hgb 15.4 H 14.4 (12.0-15.0) g/dL Hct 48.0 H 44.5 (37.0-47.0) % Plt Count 303 278 (150-375) k/mm3 BMP 10/01/24 10/02/24 22:17 05:35 Sodium 141 136 L Potassium 4.0 3.8 Chloride 104 104 Carbon Dioxide 28 25 BUN 22 H 23 H Creatinine 1.21 H 1.03 H Glucose 108 97 Calcium 9.2 8.6 Liver Function 10/01/24 Range/Units 22:17 Total Bilirubin 0.6 (0.2-1.3) mg/dL AST 41 H (14-36) U/L ALT 32 (6-35) U/L Alkaline Phosphatase 105 (38-126) U/L Albumin 4.1 (3.5-5.1) g/dL Urine 10/01/24 Range/Units 23:51 Urine Color Yellow (Yellow) Urine Appearance Clear (Clear) Urine pH 6.5 (5.0-9.0) Ur Specific [place] 1.012 (1.001-1.035) Urine Protein Negative (Negative) mg/dL Urine Glucose (UA) Negative (Negative) mg/dL
[2024-10-02 20:07] LABS: Hemoglobin A1C 6.0 % (<5.7)
[2024-10-02 20:08] LABS: Cholesterol 157 mg/dL (0-200); HDL Direct 33 mg/dL; Triglycerides 168 mg/dL (<150)
[2024-10-02] MEDS: PREGABALIN (*CRX) 25 MG CAPSULE 50 MG PO (20:41)
[2024-10-02] MEDS: ATORVASTATIN 40 MG TABLET PO (20:41)
[2024-10-02] MEDS: TIZANIDINE HCL 2 MG TABLET 4 MG PO (20:42)
[2024-10-02 21:19] LABS: Vitamin B12 971.0 pg/mL (239-931)
[2024-10-03] VITALS (12 sets, daily range): BP systolic 110–166; BP diastolic 53–89; PULSE 77–96; RESP 16–18; TEMP 36.3–36.8; O2SAT 91–98
[2024-10-03 05:15] LABS: Hematocrit 43.4 % (37.0-47.0); Hemoglobin 13.8 g/dL (12.0-15.0); Mean Corpuscular HGB Conc 31.8 g/dl (32-36); Mean Corpuscular Hemoglobin 29.7 pg (26-34); Mean Corpuscular Volume 93.5 fl (80-100); Platelet Count Result 253 k/mm3 (150-375); Red Blood Count 4.64 M/mm3 (4.2-5.4); White Blood Count 10.0 K/mm3 (4.5-10.0)
[2024-10-03 05:39] LABS: Anion Gap 4 mmol/L (4-12); Blood Urea Nitrogen 17 mg/dL (7-17); Calcium 8.8 mg/dL (8.4-10.2); Carbon Dioxide 28 mmol/L (22-30); Chloride 103 mmol/L (98-107); Estimated CRCL calculation 54 ml/min; Estimated Glomerular Filt Rate 60; Glucose 103 mg/dL (65-110); Potassium 3.4 mmol/L (3.4-5.0); Sodium 135 mmol/L (137-145)
[2024-10-03] MEDS: cefTRIAXone 1 GM in SODIUM CHLORIDE 0.9% IV 50 ML 100 ML IVPB (06:10)
[2024-10-03] MEDS: LEVOTHYROXINE SODIUM 150 MCG TABLET PO (06:12)
[2024-10-03] MEDS: CLOPIDOGREL BISULFATE 75 MG TABLET PO (09:20)
[2024-10-03] MEDS: ASPIRIN 81 MG ENTERIC TABLET PO (09:20)
[2024-10-03] MEDS: METOPROLOL TARTRATE 12.5 MG TABLET PO ×2 (09:20→20:50)
[2024-10-03] MEDS: PREGABALIN (*CRX) 25 MG CAPSULE PO (09:20)
--- NOTE | 2024-10-03 12:20 | P.PNIM_ITS ---
Progress Note: A&P Assessment and Plan (1) Disorientation: Code(s): R41.0 - Disorientation, unspecified Status: Acute Plan MRI No acute intracranial process. EEG findings may be seen due to previous craniotomy defect leading to higher amplitude over the left than right hemisphere but may also be seen due to underlying structural lesion. Sharp transients are considered nonspecific focal inter ictal abnormality. No electrographic seizures were seen.. She received fluid resuscitation, aspirin 324 mg p.o. x1. Continue [employer] atorvastatin 40 mg. Consider increasing. Neurology consultation pending. Continue with aspirin 81 mg p.o. q.a.m.. 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 Ceftriaxone Hyponatremia Continue to monitor Obesity Lifestyle modification Chronic old CVA Patient wishes to be full code. SCDs. Subjective Date/time seen: 10/03/24 12:20 Interval history: per HPi: 74-year-old female presents to [facility] ER on 10/01/2024 via EMS with reports of altered mental status. 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 She can answer yes or no questions. Also history of hypertension hyperlipidemia and hypothyroidism, and seizures. Patient presented to [facility] on 09/28/2024 and was diagnosed with UTI. She was sent home on cefdinir. Urine culture from 09/28 preliminary results showing Gram-negative bacilli but no sensitivities at. The patient was about her usual when the patient came out of the restroom and was looking very pale. She was unable to keep her eyes open or move her body and the daughter is present and provides history of the patient lives with reports possibly right-sided mouth droop being the patient cannot open her mouth. The symptoms slowly resolved and by the time she presented to the ER the patient was at her baseline. Blood pressure on arrival 147/74. WBC 13.6, serum creatinine 1.21, lactic acid 2.2 improving to 1.3 status post fluids. Urinalysis demonstrating trace leukocyte esterase and 6-10 wbc's. Blood culture urine culture drawn. Chest x- ray without acute process. Head CT without acute process. CTA head and neck showing calcified plaques with 50% stenosis of distal internal carotid arteries bilaterally, 20% stenosis of the basilar artery, previous left-sided craniotomy with encephalomalacia of the left cerebral hemisphere. 30% stenosis of proximal left subclavian artery, 50% stenosis of distal right common carotid artery, mixed density plaque with 70% stenosis of the origin of the right internal carotid artery, 40% stenosis of proximal left internal carotid artery. Neurology consultation conducted from ER and recommending admission with MRI and EEG. 10/02/24 Patient was seen and examined at bedside. she is doing fine. was getting EEG. Discussed with her daughter at bedside, she is almost back to baseline. EEG :findings may be seen due to previous craniotomy defect leading to higher amplitude over the left than right hemisphere but may also be seen due to underlying structural lesion. Sharp transients are considered nonspecific focal inter ictal abnormality. No electrographic seizures were seen. MRI No acute intracranial process. Neurology team on board. keppra increases to 750 BID. added plavix. continue Aspirin. 10/03/24 Patient was seen and examined at bedside. She is feeling fine patient denies any chest pain, shortness off breath, abdominal pain, nausea vomiting. Neurology team on board. Continue with aspirin, Plavix, statin. Continue with Rocephin for UTI WBC improved to 10 Review of Systems Review of Systems: All systems reviewed & are unremarkable except as noted in HPI and below (Subjective/HPI) Exam Const: General: comfortable and no acute distress Other: Aphasic HENMT: Mouth: Yes moist mucous membranes Eyes: Pupils: Equal, round and reactive pupils present Neck: Neck: supple Resp: Effort & Inspection: normal respiratory effort Auscultation: clear to auscultation bilaterally Cardio: Rate: regular rate Rhythm: regular rhythm GI: Inspection: non-distended Neuro: Cranial nerves: Yes Equal, round and reactive pupils present Other: Gait deferred. 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 Tongue midline, uvula midline, facial muscles symmetric Left extremities sensation intact Extrem: General: no edema Other: 1 cm wide abrasion right lower extremity 5th MTP Objective Data Vital Signs Vital Signs: Vital Signs - 24 hr 10/02/24 13:34 10/02/24 15:51 10/02/24 16:00 Temperature Pulse Rate 88 90 Respiratory Rate 16 Blood Pressure 122/57 L Pulse Oximetry 91 92 Oxygen Delivery Room Air Fraction of Inspired Oxygen 10/02/24 20:00 10/02/24 20:42 10/02/24 20:46 Temperature 98.8 F Pulse Rate 92 88 88 Respiratory Rate 16 Blood Pressure 134/70 Pulse Oximetry 92 Oxygen Delivery Fraction of Inspired Oxygen 10/02/24 21:28 10/03/24 00:00 10/03/24 00:10 Temperature 98.0 F Pulse Rate 88 77 79 Respiratory Rate 20 16 Blood Pressure 113/64 Pulse Oximetry 91 98 Oxygen Delivery Room Air Fraction of Inspired Oxygen 10/03/24 04:00 10/03/24 05:00 10/03/24 08:00 Temperature 98.2 F Pulse Rate 83 87 Respiratory Rate 16 Blood Pressure 110/53 L Pulse Oximetry 92 Oxygen Delivery Room Air Fraction of Inspired Oxygen 10/03/24 09:20 10/03/24 10:41 10/03/24 10:57 Temperature Pulse Rate 96 Respiratory Rate Blood Pressure Pulse Oximetry Oxygen Delivery Room Air Room Air Fraction of Inspired Oxygen Intake/Output Intake/Output: Intake & Output 09/30/24 10/01/24 10/02/24 10/03/24 23:59 23:59 23:59 23:59 Intake Total 1660 490 Output Total 575 400 Balance 1085 90 Meds/Results Medications: Active Medications Generic Name Dose Route Start Last Admin Trade Name Freq PRN Reason Stop Dose Admin Albuterol 2 puff 10/02/24 04:52 Albuterol Sulfate (*Sp) Aerosol 1 Puff INHALATION Q6HRT PRN shortness of breath or wheezing Artificial Tears 1 drop 10/02/24 05:30 Artificial Tears Ophth Soln 15 Ml Bottle EACH EYE QID PRN Dry Eye(s) Aspirin 81 mg 10/02/24 09:00 10/03/24 09:20 Aspirin 81 Mg Enteric Tablet PO 81 mg QAM JIGAR Administration Atorvastatin Calcium 40 mg 10/02/24 21:00 10/02/24 20:41 Atorvastatin 40 Mg Tablet PO 40 mg QHS JIGAR Administration Clonazepam 0.5 mg 10/02/24 04:53 Clonazepam (*Crx) 0.5 Mg Tablet PO Q12H PRN anxiety Clopidogrel Bisulfate 75 mg 10/03/24 09:00 10/03/24 09:20 Clopidogrel Bisulfate 75 Mg Tablet PO 75 mg QAM JIGAR Administration Duloxetine HCl 20 mg 10/02/24 09:00 10/03/24 09:20 Duloxetine Hcl 20 Mg Capsule.Dr PO 20 mg Q12HR JIGAR Administration Ceftriaxone Sodium 1 gm/ 50 mls @ 100 mls/hr 10/02/24 05:00 10/03/24 06:10 Sodium Chloride IVPB 100 mls/hr Q24H JIGAR Administration Levetiracetam 750 mg 10/02/24 21:00 10/03/24 09:21 Levetiracetam 250 Mg Tablet PO 750 mg Q12HR JIGAR Administration Levothyroxine Sodium 150 mcg 10/02/24 06:30 10/03/24 06:12 Levothyroxine Sodium 150 Mcg Tablet PO 150 mcg DAILY@0630 JIGAR Administration Metoprolol Tartrate 12.5 mg 10/02/24 09:00 10/03/24 09:20 Metoprolol Tartrate 12.5 Mg Tablet PO 12.5 mg Q12HR JIGAR Administration Pregabalin 25 mg 10/02/24 09:00 10/03/24 09:20 Pregabalin (*Crx) 25 Mg Capsule PO 25 mg QAM JIGAR Administration Pregabalin 50 mg 10/02/24 21:00 10/02/24 20:41 Pregabalin (*Crx) 25 Mg Capsule PO 50 mg QHS JIGAR Administration Tizanidine HCl 4 mg 10/02/24 21:00 10/02/24 20:42 Tizanidine Hcl 2 Mg Tablet PO 4 mg QHS JIGAR Administration Radiology Results: ITS Impressions Head CT 10/01/24 22:10 IMPRESSION: No acute intracranial process. Chest X-Ray 10/01/24 22:15 IMPRESSION: No acute cardiopulmonary process. Head/Neck CTA 10/02/24 06:37 IMPRESSION: Soft, noncalcified plaque is present within the bilateral internal carotid art eries, as detailed above. Percent stenosis per NASCET criteria is 70% on the right and close to 40% on the left. Bilateral vertebral arteries are widely patent. Densely calcified bilateral intracranial internal carotid arteries, as detailed above. Brain MRI 10/02/24 12:00 IMPRESSION: 1. No acute intracranial process. 2. Large chronic infarct involving much of the left middle cerebral artery vascular distribution with change of prior left frontoparietal craniotomy with expected secondary mild pachymeningeal enhancement and with chronic region of heterotopic ossification within the region of encephalomalacia. 3. Additional small old right frontal lobe infarct. Labs Labs: Laboratory Results - last 24 hr 10/02/24 10/02/24 10/03/24 05:28 05:35 05:05 WBC 10.0 RBC 4.64 Hgb 13.8 Hct 43.4 MCV 93.5 MCH 29.7 MCHC 31.8 L RDW 14.8 H Plt Count 253 MPV 10.5 H Sodium 135 L Potassium 3.4 Chloride 103 Carbon Dioxide 28 Anion Gap 4 BUN 17 Creatinine 0.91 Estim Creat Clear Calc 54 Estimated GFR 60 Glucose 103 Hemoglobin A1c 6.0 H Calcium 8.8 Triglycerides 168 H Cholesterol 157 LDL Cholesterol Direct 72 HDL Direct 33 Vitamin B12 971.0 H Vitamin D 25-Hydroxy 59.3 Folate > 20.0 H
[2024-10-03] MEDS: ATORVASTATIN 40 MG TABLET PO (20:50)
[2024-10-03] MEDS: TIZANIDINE HCL 2 MG TABLET 4 MG PO (20:50)
[2024-10-03] MEDS: PREGABALIN (*CRX) 25 MG CAPSULE 50 MG PO (20:51)
[2024-10-04] VITALS: PULSE 71
[2024-10-04 04:00] VITALS: PULSE 77
[2024-10-04 04:47] VITALS: BP 158/87; PULSE 78; RESP 16; TEMP 36.4; O2SAT 95
[2024-10-04] MEDS: cefTRIAXone 1 GM in SODIUM CHLORIDE 0.9% IV 50 ML 100 ML IVPB (05:12)
[2024-10-04 05:32] LABS: Hematocrit 43.7 % (37.0-47.0); Hemoglobin 13.8 g/dL (12.0-15.0); Mean Corpuscular HGB Conc 31.6 g/dl (32-36); Mean Corpuscular Hemoglobin 29.4 pg (26-34); Mean Corpuscular Volume 93.2 fl (80-100); Platelet Count Result 243 k/mm3 (150-375); Red Blood Count 4.69 M/mm3 (4.2-5.4); White Blood Count 10.7 K/mm3 (4.5-10.0)
[2024-10-04 05:44] LABS: Anion Gap 6 mmol/L (4-12); Blood Urea Nitrogen 17 mg/dL (7-17); Calcium 8.8 mg/dL (8.4-10.2); Carbon Dioxide 29 mmol/L (22-30); Chloride 106 mmol/L (98-107); Estimated CRCL calculation 59 ml/min; Estimated Glomerular Filt Rate > 60; Glucose 98 mg/dL (65-110); Potassium 3.3 mmol/L (3.4-5.0); Sodium 141 mmol/L (137-145)
[2024-10-04] MEDS: LEVOTHYROXINE SODIUM 150 MCG TABLET PO (06:05)
[2024-10-04 08:00] VITALS: PULSE 78
[2024-10-04] MEDS: CLOPIDOGREL BISULFATE 75 MG TABLET PO (08:46)
[2024-10-04] MEDS: ASPIRIN 81 MG ENTERIC TABLET PO (08:46)
[2024-10-04 08:47] VITALS: PULSE 78
[2024-10-04] MEDS: PREGABALIN (*CRX) 25 MG CAPSULE PO (08:47)
[2024-10-04] MEDS: METOPROLOL TARTRATE 12.5 MG TABLET PO (08:47)
[2024-10-04] MEDS: ENOXAPARIN 40 MG/0.4 ML SYRINGE SUB-Q (08:48)
--- NOTE | 2024-10-04 11:25 | P.DS_ITS ---
DS: Admitting Diagnosis Discharge Date 10/04/2024 Admitting Diagnosis AMS/TIA DS: Discharge Diagnosis Discharge Diagnosis (1) Disorientation: Code(s): R41.0 - Disorientation, unspecified Status: Acute (2) Seizure disorder: Code(s): G40.909 - Epilepsy, unspecified, not intractable, without status epilepticus Status: Acute (3) Transient ischemic attack (TIA): Code(s): G45.9 - Transient cerebral ischemic attack, unspecified Status: Acute (4) UTI (urinary tract infection): Code(s): N39.0 - Urinary tract infection, site not specified Status: Acute DS: Summary Hospital Course Reason for hospitalization: AMS/TIA Hospital Course: Admission: Patient was a 74-year-old female presents to [facility] ER on 10/01/2024 via EMS with reports of altered mental status. 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 She can answer yes or no questions. Also history of hypertension hyperlipidemia and hypothyroidism, and seizures. Patient presented to [facility] on 09/28/2024 and was diagnosed with UTI. She was sent home on cefdinir. Urine culture from 09/28 preliminary results showing Gram-negative bacilli but no sensitivities at. The patient was about her usual when the patient came out of the restroom and was looking very pale. She was unable to keep her eyes open or move her body and the daughter is present and provides history of the patient lives with reports possibly right-sided mouth droop being the patient cannot open her mouth. The symptoms slowly resolved and by the time she presented to the ER the patient was at her baseline. In the ED: Blood pressure on arrival 147/74. WBC 13.6, serum creatinine 1.21, lactic acid 2.2 improving to 1.3 status post fluids. Urinalysis demonstrating trace leukocyte esterase and 6-10 wbc's. Blood culture urine culture drawn. Chest x- ray without acute process. Head CT without acute process. CTA head and neck showing calcified plaques with 50% stenosis of distal internal carotid arteries bilaterally, 20% stenosis of the basilar artery, previous left-sided craniotomy with encephalomalacia of the left cerebral hemisphere. 30% stenosis of proximal left subclavian artery, 50% stenosis of distal right common carotid artery, mixed density plaque with 70% stenosis of the origin of the right internal carotid artery, 40% stenosis of proximal left internal carotid artery. Hospital Course Patient was admitted to the medical unit with neurology consultation conducted from ER and recommending admission with MRI and EEG. MRI No acute intracranial process. EEG findings may be seen due to previous craniotomy defect leading to higher amplitude over the left than right hemisphere but may also be seen due to underlying structural lesion. Sharp transients are considered nonspecific focal inter ictal abnormality. No electrographic seizures were seen.. She received fluid resuscitation, aspirin 324 mg p.o. x1. Continue [employer]IFE j carlos rvastatin 40 mg. Prior CVA resulting from intraoperative complication from a left-sided carotid endarterectomy with residual right-sided hemiparesis and expressive aphasia. Patient continues to have overall improvement to symptoms and tolerated increase of Keppra from 500 mg b.i.d. to 750 b.i.d. was recommended by Neurology. She was continued on IV Rocephin for urinary tract infection and transitioned to oral antibiotic at discharge. patient has 247 home care and was discharged back to home with daughter recommended follow-up with neurology as scheduled. patient family deferred EEG reported they would follow up with their neurologist outpatient. patient discharged back to home with family. Status at Discharge Overall status at discharge: patient is back to baseline Time Spent with Patient Time attestation: Total time spent providing and/or coordinating discharge services: Time spent: Greater than 30 minutes Exam Const: General: comfortable and no acute distress Other: Aphasic HENMT: Mouth: Yes moist mucous membranes Eyes: Pupils: Equal, round and reactive pupils present Neck: Neck: supple Resp: Effort & Inspection: normal respiratory effort Auscultation: clear to auscultation bilaterally Cardio: Rate: regular rate Rhythm: regular rhythm GI: Inspection: non-distended Neuro: Cranial nerves: Yes Equal, round and reactive pupils present Other: Gait deferred. 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 Tongue midline, uvula midline, facial muscles symmetric Left extremities sensation intact Extrem: General: no edema Other: 1 cm wide abrasion right lower extremity 5th MTP DS: Data Data Completed and Pending Labs on day of discharge: Labs from last 24 hours 10/04/24 05:21 WBC 10.7 H RBC 4.69 Hgb 13.8 Hct 43.7 MCV 93.2 MCH 29.4 MCHC 31.6 L RDW 14.9 H Plt Count 243 MPV 10.3 Sodium 141 Potassium 3.3 L Chloride 106 Carbon Dioxide 29 Anion Gap 6 BUN 17 Creatinine 0.84 Estim Creat Clear Calc 59 Estimated GFR > 60 Glucose 98 Calcium 8.8 Discharge Plan Discharge Attending physician on discharge: Barber Mac Consulting providers: Cecilio Coats; Dexter Lewis; Yue Han Discharging Clinician: Yue Han Anticipated Discharge Date/Time: 10/04/24 11:16 Patient Disposition: Home Activity: as tolerated Diet: heart healthy Discharge Instructions: 1). CVA * I added Plavix daily please take as indicated * continue with ASA and your Atorvastatin * May follow-up with neurology outpatient 2) Seizures: * Neurology increased your Keppra to 750mg BID * May follow-up with Neurology outpatient 3). UTI * I have prescribed an antibiotic please take as indicated and complete even if feeling better How can you care for yourself at home? ? Keep track of any new symptoms or changes in your symptoms. ? Rest until you feel better. ? Be safe with medicines. Take your medicines exactly as prescribed. Call your doctor if you think you are having a problem with your medicine. ? Do not drive after taking a prescription pain medicine. ? Ensure to follow-up with primary care physician as indicated and provide updated medication list provided to you at discharge. When should you call for help? Call 911 anytime you think you may need emergency care. For example, call if: ? You passed out (lost consciousness). Call your doctor now or seek immediate medical care if: ? You have new symptoms like fever, difficulty breathing, Chest pain, vomiting, or rash. ? You have new or different pain. ? You are confused and are having trouble thinking clearly. ? Your symptoms are getting worse. Watch closely for changes in your health, and be sure to contact your doctor if: ? You do not get better as expected. Patient Instructions: Antibiotic Form, Transient Ischemic Attack (DC), Urinary Tract Infection in Women (DC), Epilepsy (DC), Left Hemispheric Stroke (DC), Urinary Tract Infection in Older Adults (DC) Patient Language: Burmese Stand Alone Forms: General Discharge Information Follow-up/Referrals: Jj,Myron Sharma M.D. [Primary Care Provider] - 2 Weeks Discharge Medications: New clopidogrel 75 mg Tablet 75 mg PO QAM Qty: 30 0RF aspirin 81 mg Tablet,Delayed Release (Dr/Ec) 81 mg PO QAM Qty: 30 0RF levetiracetam [Keppra] 750 mg tablet 750 mg PO BID Qty: 60 0RF Continued albuterol sulfate 2.5 mg /3 mL (0.083 %) solution for nebulization 2.5 mg inhalation Q6H PRN (Reason: shortness of breath or wheezing) albuterol sulfate 90 mcg/actuation HFA aerosol inhaler 2 puff INHALATION Q6H PRN (Reason: shortness of breath or wheezing) atorvastatin 40 mg tablet 40 mg PO QPM clonazepam 0.5 mg tablet 0.5 mg PO Q12H PRN (Reason: anxiety) ezetimibe 10 mg tablet 10 mg PO DAILY levothyroxine [Synthroid] 200 mcg tablet 150 mcg PO DAILY@0630 metoprolol tartrate 25 mg tablet 12.5 mg PO Q12H pregabalin 25 mg capsule 25 mg PO Q12H Rx Instructions: TAKES 1 TAB IN AM AND 2 TABS AT HS tizanidine 2 mg tablet 2 mg PO QHS Rx Instructions: TAKES 2 2MG TABLETS TO MAKE 4MG DOSE triamterene-hydrochlorothiazid 37.5-25 mg tablet 1 tablet PO DAILY polysorbate 80-glycerin 1-1 % drops 1 drp ophthalmic (eye) .Q4HR PRN (Reason: dry eyes) cefdinir 300 mg capsule 300 mg PO Q12H 5 Days Qty: 4 0RF Discontinued duloxetine 20 mg capsule,delayed release(DR/EC) 20 mg PO BID levetiracetam 500 mg tablet 500 mg PO Q12H Date of admission: 10/02/24 14:27 Primary Care Provider: Jj,Myron Sharma Admitting Provider: April Crooks Attending physician on admission: April Crooks Condition: Stable Quality Radiology Results: ITS Impressions Head CT 10/01/24 22:10 IMPRESSION: No acute intracranial process. Chest X-Ray 10/01/24 22:15 IMPRESSION: No acute cardiopulmonary process. Head/Neck CTA 10/02/24 06:37 IMPRESSION: Soft, noncalcified plaque is present within the bilateral internal carotid arteries, as detailed above. Percent stenosis per NASCET criteria is 70% on the right and close to 40% on the left. Bilateral vertebral arteries are widely patent. Densely calcified bilateral intracranial internal carotid arteries, as detailed above. Brain MRI 10/02/24 12:00 IMPRESSION: 1. No acute intracranial process. 2. Large chronic infarct involving much of the left middle cerebral artery vascular distribution with change of prior left frontoparietal craniotomy with expected secondary mild pachymeningeal enhancement and with chronic region of heterotopic ossification within the region of encephalomalacia. 3. Additional small old right frontal lobe infarct. Hospitalist MIPS Heart Failure (Exclusion) Patient has history of Heart Transplant or Left Ventricular Assistive Device?: No IF YES, STOP HERE Heart Failure (Qualifier) Patient has current or prior documentation of LVEF less than or equal to 40%, or mod/servere depressed LVSF?: No IF NO, STOP HERE
== END 2024-10-04 12:15 | disposition home or self-care (01) | DRG 69 ==
LOC: ANHED 10-02 01:56 → ANH2MED 10-02 04:01
PROVIDERS: Internal Medicine; Psychiatry & Neurology Neurology; Admitting Provider General Practice; Emergency Provider Physician Assistant; PCP Family Medicine; Visit Provider Internal Medicine
DX: G45.9 Transient cerebral ischemic attack, unspecified (principal); N39.0 Urinary tract infection, site not specified; I69.351 Hemiplegia and hemiparesis following cerebral infarction affecting right dominant side; I69.320 Aphasia following cerebral infarction; G40.909 Epilepsy, unspecified, not intractable, without status epilepticus; I10 Essential (primary) hypertension; E78.5 Hyperlipidemia, unspecified; E03.9 Hypothyroidism, unspecified; I65.23 Occlusion and stenosis of bilateral carotid arteries
CPT/HCPCS: 36415; 70450; 70496; 70498; 70553; 71045; 80048; 80053; 80061; 81001; 82306; 82607; 82746; 83036; 83605; 83735; 85025; 85027; 85610; 85730; 87040; 87086; 93005; 95816; 96360; 96361; 97162; 97165; 99285; A9270; A9577; G0378; J0696; J1650; J7030; Q9967